=== PATIENT | female | born 1940 | race Caucasian/White ===

== ENCOUNTER 2020-07-16 12:27 | Inpatient (IN) | payer MEDICARE, SELFPAY ==
[2020-07-16] VITALS (36 sets, daily range): BP systolic 93–131; BP diastolic 22–80; PULSE 57–95; RESP 15–28; TEMP 36.3–36.7; O2SAT 90–99; BMI 39.9
--- NOTE | ~2020-07-16 | XR_ITS ---
XR chest 1V portable 07/16/2020 13:35 Indication: Epistaxis Procedure: AP portable chest Comparison: Comparison to multiple prior studies sequentially, with oldest reviewed study dated 05/22. Findings: Cardiomegaly. Diffuse bilateral airspace disease. Moderate right pleural effusion. No pneum othorax. No acute osseous abnormality. Impression: 1: Diffuse bilateral airspace disease may represent edema or pneumonia. 2: Moderate right pleural effusion. Reviewed, dictated and finalized at location A. NCE ACCOUNTING INTERNSHIP Impression: 1: Diffuse bilateral airspace disease may represent edema or pneumonia. 2: Moderate right pleural effusion.
--- NOTE | ~2020-07-16 | US_ITS ---
EXAMINATION: US renal BI DATE: 07/30/2020 09:31 INDICATION: Persistent hypokalemia TECHNIQUE: Multiple ultrasound grayscale images of the kidneys were obtained. COMPARISON: None. FINDINGS: The right kidney measures 10.2 x 4.8 x 4.5 cm. The left kidney measures 10.1 x 5.7 x 3.2 cm. The kidn eys demonstrate normal echogenicity. 5 mm shadowing stone at the lower pole of the left kidney. There is no hydronephrosis in either kidney. No stones identified. The bladder is decompressed which limi ts evaluation but appears unremarkable. IMPRESSION: 1. 5 mm left renal stone. Otherwise normal kidneys with no hydronephrosis. Reviewed, dictated and finalized at location A. ATTENDANT
--- NOTE | ~2020-07-16 | XR_ITS ---
EXAMINATION: [id number] DATE: 07/25/2020 15:38 INDICATION: Right pleural effusion status post thoracentesis. TECHNIQUE: Frontal and lateral views of the chest were obtained. COMPARISON: Chest CT 07/25/20 FINDINGS: There is a small right pleural effusion. There are airspace and interstitial opacities in a ll lung zones bilaterally with relative sparing of the upper lung zones. No pneumothorax. Cardiomegal y is noted. IMPRESSION: 1. Diffuse lung disease, consistent with pulmonary edema versus pneumonia superimposed on chronic int erstitial lung disease. 2. Small right pleural effusion with interval improvement. 3. Cardiomegaly. Reviewed, dictated and finalized at location A. IOLOGY PHYSICIAN ASSISTANT IMPRESSION: 1. Diffuse lung disease, consistent with pulmonary edema versus pneumonia super imposed on chronic interstitial lung disease. 2. Small right pleural effusion with interval improvement. 3. Cardiomegaly.
--- NOTE | ~2020-07-16 | XR_ITS ---
XR chest 1V portable 07/27/2020 06:12 Indication: CHF. Shortness of breath. Procedure: AP portable chest Comparison: 07/23/2020 Findings: . Diffuse bilateral airspace disease without significant change. Stable right pleural effus ion. Atherosclerosis. No acute osseous abnormality. Impression: 1: Stable diffuse bilateral airspace disease which may represent edema and/or pneumonia. 2: Stable small right pleural effusion. Reviewed, dictated and finalized at location A. K SAW OPERATOR Impression: 1: Stable diffuse bilateral airspace disease which may represent edema and/or p neumonia. 2: Stable small right pleural effusion.
--- NOTE | ~2020-07-16 | CT_ITS ---
EXAMINATION:CT chest high resolution wo co DATE: 07/25/2020 08:42 INDICATION: Hypoxia. Atypical bilateral infiltrates. TECHNIQUE: Computed tomography (CT) of the chest was performed without intravenous contrast. Automate d exposure control and iterative reconstruction technique were employed. The dose-length product (DLP ) was 460.91 mGy-cm. COMPARISON: Chest CT 05/09/2019, chest 2 views 07/23/2020 FINDINGS: There is a moderate-sized right pleural effusion. There are heterogeneous reticular opaciti es and airspace and groundglass opacities involving all lobes. A calcified left lung nodule and calci fied left hilar lymph nodes are consistent with old granulomatous disease. Cardiomegaly is noted. The re are coronary artery calcifications. No pericardial effusion. The central pulmonary arteries are en larged, consistent with pulmonary arterial hypertension. There is a 1.7 cm cyst in the liver. There i s thoracic dextroscoliosis and mild spondylosis. IMPRESSION: 1. Diffuse lung disease, worsened from 05/09/19, consistent with pneumonia versus pulmonary edema supe rimposed on chronic lung disease. 2. Moderate-sized right pleural effusion, stable from 05/09/19. 3. Cardiomegaly. Reviewed, dictated and finalized at location A. RVISOR POLISHING IMPRESSION: 1. Diffuse lung disease, worsened from 05/09/19, consistent with pneumonia versu s pulmonary edema superimposed on chronic lung disease. 2. Moderate-sized right pleural effusion, stable from 05/09/19. 3. Cardiomegaly.
--- NOTE | ~2020-07-16 | XR_ITS ---
XR chest 1V portable DATE: 07/18/2020 05:47 INDICATION: Dyspnea TECHNIQUE: Portable AP chest on 07/18/2020 at 0534 hours COMPARISON: 07/16/2020 portable AP chest at 1322 hours FINDINGS: There is interval mild improvement of patchy bilateral pulmonary infiltrates since 07/16/20 28. There is persistent mild elevation of the right leaf of the diaphragm and suggestion of minimal b ilateral pleural effusions. Cardiomegaly and aortic calcification. No pneumothorax. Diffuse osteopenia. Scoliosis and degenerative change of the thoracic spine. IMPRESSION: Patchy bilateral pulmonary infiltrates, mildly improved since 07/16/2020 Reviewed, dictated and finalized at location A. CHING MACHINE OPERATOR
--- NOTE | ~2020-07-16 | XR_ITS ---
XR chest 2V 07/23/2020 08:51 Indication: Dyspnea Procedure: AP and lateral views of the chest Comparison: Comparison to multiple prior studies sequentially, with oldest reviewed study dated 09/07. Findings: Cardiomegaly. Diffuse bilateral airspace disease unchanged. Small right pleural effusion. N o pneumothorax. No acute osseous abnormality. Impression: 1: Cardiomegaly with diffuse bilateral airspace disease which prior absent edema or pneumonia. 2: Small right pleural effusion. Reviewed, dictated and finalized at location B. US AIDE Impression: 1: Cardiomegaly with diffuse bilateral airspace disease which prior absent shandra a or pneumonia. 2: Small right pleural effusion.
--- NOTE | ~2020-07-16 | US_ITS ---
EXAMINATION: US thoracentesis DATE: 07/25/2020 15:41 INDICATION: pleural effusion TECHNIQUE: The procedure and its risks, benefits, and alternatives were discussed with the patient. P otential risks discussed included bleeding, infection, and pneumothorax. The patient understood the r isks and agreed to proceed. The skin was prepped and draped in sterile fashion. 1% lidocaine was used for local anesthesia. Under ultrasound guidance, a 5 Fr catheter with trochar was advanced into the right pleural effusion. Fluid was aspirated. The catheter was removed, and a dressing was applied. Th ere were no immediate complications. FINDINGS: Ultrasound images demonstrate a right pleural effusion and the catheter within the fluid. IMPRESSION: 1. Successful ultrasound-guided thoracentesis yielding 950 mL of red fluid. Reviewed, dictated and finalized at location A. RVISOR POULTRY HATCHERY
--- NOTE | 2020-07-16 12:42 | ED.EPISTAXIS ---
HPI - Epistaxis General Chief complaint: Epistaxis Stated complaint: nose bleed Time Seen by Provider: 07/16/20 12:42 Source: patient, family and EMS Mode of arrival: EMS Limitations: no limitations History of Present Illness HPI Narrative: Patient is a 79 yo female with a history of COPD, a fib on Eliquis, who presents for evaluation of epistaxis. Pt with intermittent epistaxis due to consistently needing 4L oxygen, and had a nose bleed today that she could not get to stop at home. Pt transmitted to our facility on a NRB by EMS because they removed her nasal cannula oxygen. Pt reporting weakness and shortness of breath worse from baseline. Nose bleeding has stopped. Pt states she was bleeding mostly from left nostril, but did have blood from both. She has been compliant with her medications. Denies chest pain. No lightheadedness or dizziness. Pt states she feels more weak than normal. Denies focal weakness or numbness. Denies fever or cough. Related Data Home Medications Medication Instructions Recorded Confirmed ipratropium 0.5 mg-albuterol 3 mg 3 ml INHALATION QID PRN 08/16/19 09/04/19 (2.5 mg base)/3 mL nebulization soln Eliquis 5 mg PO BID 09/04/19 09/04/19 omeprazole 20 mg PO DAILY 09/04/19 09/04/19 polyethylene glycol 3350 17 g PO DAILY 09/04/19 09/04/19 vitamin D3-folic acid 1 tablet PO DAILY 09/04/19 09/04/19 zoledronic acid 5 mg/100 mL in 5 mg IVPB ONCE 10/10/19 mannitol 5 %-water intravenous piggybck Allergies Allergy/AdvReac Type Severity Reaction Status Date / Time erythromycin base Allergy Severe Wheezing Verified 07/16/20 12:44 Penicillins Allergy Intermediate Ulcers Verified 07/16/20 12:44 tetanus toxoid, adsorbed Allergy Mild LOCALIZED Verified 07/16/20 12:44 REACTION @ INJECTION SITE diphtheria, pertussis, AdvReac Unknown Unknown Verified 07/16/20 12:44 tetanus vacc NKFA Allergy Unknown Unknown Uncoded 07/16/20 12:44 metal AdvReac Unknown rash Uncoded 07/16/20 12:44 Review of Systems Review of Systems: Narrative: CONSTITUTIONAL: Denies fever EYES: Denies visual changes ENT: Reports rhinorrhea, congestion, epistaxis CARDIOVASCULAR: Denies chest pain RESPIRATORY: Denies cough, reports dyspnea GASTROINTESTINAL: Denies abdominal pain, nausea, vomiting MUSCULOSKELETAL: Denies back pain NEUROLOGIC: Denies headache, numbness,reports feeling weak PMFSH Past Medical History Medical History (Updated 07/16/20 @ 15:43 by Kylee Kimble MD) Adjustment disorder with anxious mood Age-related osteoporosis without current pathological fracture Anemia Atrial fibrillation (~03/2019) Breast cancer Cataracts, bilateral Chronic congestive heart failure with left ventricular diastolic dysfunction Congestive heart failure, unspecified CPAP (continuous positive airway pressure) dependence Diverticulitis Endometriosis Essential (primary) hypertension Fracture of left femur following insertion of orthopedic implant Gastro-esophageal reflux disease with esophagitis Kidney stone Mitral valve prolapse Mixed hyperlipidemia Nonrheumatic mitral (valve) insufficiency Obstructive sleep apnea (adult) (pediatric) Osteoporosis Pulmonary hypertension Respiratory failure Sleep apnea Supraventricular tachycardia Unspecified diastolic (congestive) heart failure UTI (urinary tract infection) Surgical History Surgical History History of lumpectomy of left breast Family History Family History Mother Hypertension Diabetes mellitus Family history of osteoporosis Acute myocardial infarction Sibling Family history of malignant neoplasm of esophagus Colon polyp Father Family history of glaucoma Hypertension Family history of rheumatoid arthritis Other Family history of cardiovascular disease Family history of heart disease in male family member before age 55 Family history of
[2020-07-16] MEDS: OXYMETAZOLINE HCL 0.05% NAS 15 ML BTL (*BKC) 1 SPRAY NASAL (13:04)
[2020-07-16 13:30] LABS: Basophils Percent Auto 0.3 % (0.2-1.2); Eosinophils Absolute Auto 0.2 K/mm3 (0-0.3); Eosinophils Percent Auto 2.7 % (0-4.4); Hematocrit 46.5 % (37.0-47.0); Hemoglobin 15.1 g/dL (12.0-15.0); Immature Granulocyte Absolute 0.02 K/mm3 (0.00-0.031); Immature Granulocyte Percent A 0.3 % (0-0.5); Lymphocytes Absolute Auto 0.62 K/mm3 (0.9-3.2); Lymphocytes Percent Auto 8.2 % (18.3-44.2); Mean Corpuscular HGB Conc 32.5 g/dl (32-36); Mean Corpuscular Volume 89.4 fl (80-100); Mean Platelet Volume 10.4 fl (7.4-10.4); Monocytes Absolute Auto 0.8 K/mm3 (0.1-0.6); Monocytes Percent Auto 10.9 % (2.6-8.5); Neutrophils Absolute Auto 5.9 K/mm3 (1.3-6.7); Neutrophils Percent Auto 77.6 % (45.5-73.1); Platelet Count Result 214 k/mm3 (150-375); Red Cell Distribution Width 15.1 % (11.5-14.5); White Blood Count 7.5 K/mm3 (4.5-10.0)
[2020-07-16 13:39] LABS: INR 1.7; Prothrombin Time 20.2 Seconds (11.1-14.7)
[2020-07-16 13:40] LABS: Partial Thromboplastin Time 35.9 SECONDS (22.3-36.8)
[2020-07-16 13:44] LABS: Anion Gap 9.99999 mmol/L (8-16); Blood Urea Nitrogen 51 mg/dL (7-17); Calcium 9.7 mg/dL (8.4-10.2); Carbon Dioxide > 40 mmol/L (22-30); Chloride 84 mmol/L (98-107); Estimated CRCL calculation 36 ml/min; Estimated Glomerular Filt Rate 43; Glucose 147 mg/dL (65-105); Potassium 2.9 mmol/L (3.4-5.0); Sodium 134 mmol/L (137-145)
[2020-07-16] MEDS: POTASSIUM CHLORIDE 20 MEQ PACKET (FOR LIQUID) 40 MEQ PO (14:07)
[2020-07-16] MEDS: SODIUM CHLORIDE 0.9% IV 500 ML 999 ML IV CONT (14:07)
[2020-07-16 14:40] LABS: Alveolar/Arterial O2 Gradient 87.7 mmHg; Base Excess ABG 10.5 mEq/l (+/-2.0); Carboxyhemoglobin 0.8 % THb (0-2.0); Fractional Inspired Oxygen 34 %; HCO3 ABG 39.5 mEq/l (22.0-26.0); Methemoglobin ABG 0.4 %THb (0-1.5); Oxygen Content ABG 18.8 %vol (16.0-22.0); Oxygen Saturation ABG 92.1 % (95.0-100.0); PCO2 ABG 73.7 mmHg (35.0-45.0); PO2 ABG 68.9 mmHg (80.0-100.0); PO2 FiO2 Ratio Arterial Blood 2.03 %; Reduced Hemoglobin 7.8 %THb (0-5.0); Total Hemoglobin 14.7 g/dL (12.0-18.0); pH ABG 7.347 (7.350-7.450)
[2020-07-16 14:41] LABS: Device NASAL CANNULA; Liters per Minute 3.5 LPM; Modified Allen's Test Pass; Site Drawn RIGHT RADIAL
[2020-07-16 15:04] LABS: NT Pro B Type Natriuretic Pept 2900 PG/ML (5-100); Troponin I 0.023 ng/mL (0.000-0.034)
--- NOTE | 2020-07-16 15:29 | ECG_ITS ---
Measurements Intervals Sebastian Rate: 111 P: LA: 0 QRS: 126 QRSD: 70 T: 1 QT: 341 QTc: 464 Interpretive Statements ATRIAL FIBRILLATION WITH RAPID VENTRICULAR RESPONSE RIGHT AXIS DEVIATION CANNOT RULE OUT SEPTAL INFARCT, AGE INDETERMINATE BORDERLINE ST-T WAVE ABNORMALITY- INFERIOR LEADS BASELINE WANDER- V3-V6 ABNORMAL ECG Electronically Signed On 07-17-2020 8:42:25 [employer]UCK [employer] by Oscar Pulido D.O.
[2020-07-16] MEDS: FUROSEMIDE INJ 40 MG/4 ML VIAL 20 MG IV PUSH (15:38)
[2020-07-16 16:47] LABS: Alveolar/Arterial O2 Gradient 97.7 mmHg; Base Excess ABG 12.9 mEq/l (+/-2.0); Carboxyhemoglobin 1.1 % THb (0-2.0); Fractional Inspired Oxygen 35 %; HCO3 ABG 41.5 mEq/l (22.0-26.0); Methemoglobin ABG 0.3 %THb (0-1.5); Oxygen Content ABG 19.4 %vol (16.0-22.0); Oxygen Saturation ABG 93.2 % (95.0-100.0); PO2 ABG 69.9 mmHg (80.0-100.0); Reduced Hemoglobin 6.6 %THb (0-5.0); pH ABG 7.388 (7.350-7.450)
[2020-07-16 16:48] LABS: Device NON-INVASIVE VENT; Modified Allen's Test Pass; PCO2 ABG 70.5 mmHg (35.0-45.0); Site Drawn LEFT RADIAL
[2020-07-16 16:49] LABS: Non-Invasive Expiratory Pressure 5 CMH2O; Non-Invasive Inspiratory Pressure 15 CMH2O; Non-Invasive Vent Rate 16 /MIN
--- NOTE | 2020-07-16 17:06 | PC.NURSE ---
Blood cultures were drawn from 2 different sites by this RN.
--- NOTE | 2020-07-16 19:57 | PM.IMHP ---
H&P: HPI History of Present Illness Date/Time: 07/16/20 19:57 Chief complaint: Acute hypercapnic/respiratory failure/acute CHF ex Narrative: Elizabeth Montana is a 79 year old female who has a history of atrial fibrillation on Eliquis. The patient has pulmonary hypertension and is on oxygen at 3 and half to 4 L. the patient is tested for covid 19 every week. She was tested earlier this week. According to the the daughter, the patient tested negative covid 19. The patient wears oxygen per nasal cannula in her nose became very dry today. She then developed a nosebleed that would not stop. EMS was activated because she was not able to keep her oxygen in place. She was placed on a non-rebreather. She was complaining of weakness and shortness of breath. She has bleeding from the left nostril mostly but is coming from both sides. She has been compliant with her medications and is pending. Although she is a DNR she agreed to the BiPAP. Arterial blood gases pH 7.347 with the CO2 73.7 PO2 was 68.9. Repeat ABG pH was normal at some 0.388 and her CO2 70.5. PO2 69.9. Patient's BiPAP settings are 15 or 5 with 35% laden in a rate of 16. 2.9 and was replaced. Creatinine 1.2. BNP 2900. May represent edema or pneumonia. Moderate right pleural effusion. The patient was given Afrin nasal spray due to the nasal bleeds. His she was given IV Lasix and started on Levaquin. Patient was admitted into observation date of service 07/16/2020. Review of Systems Review of Systems: All systems reviewed & are unremarkable except as noted in HPI and below Constitutional: Constitutional: Reports as per HPI and Reports no additional constitutional complaints Eyes: Eyes: Reports as per HPI and Reports no additional eye complaints ENT: Reports system reviewed and no additional complaints, except as documented and Reports Normal hearing present Cardiovascular: Cardiovascular: Reports no additional cardiovascular complaints Respiratory: Respiratory: Reports no additional respiratory complaints and Reports no additional respiratory complaints Gastrointestinal: Gastrointestinal: Reports as per HPI and Reports no additional gastrointestinal complaints Musculoskeletal: Musculoskeletal: Reports no additional musculoskeletal complaints Integumentary/Breasts: Skin/Breast: Reports system reviewed and no additional complaints, except as docu and Reports as per HPI Neurologic: Reports system reviewed and no additional complaints, except as documented, Reports as per HPI and Reports Normal hearing present Psychiatric: Psychiatric: Reports no additional psychiatric complaints and Reports as per HPI Endocrine: Endocrine: Reports no additional endocrine complaints Hematologic/Lymphatic: Hematologic/Lymphatic: Reports no additional hematologic/lymphatic complaints Allergic/Immunologic: Allergic/Immunologic: Reports no additional allergic/immunologic complaints [facility] Past Medical History Medical History (Updated 07/16/20 @ 20:07 by Tamiko Fuller NP) Abnormal colonoscopy And control hemorrhoids diverticulosis Adjustment disorder with anxious mood Age-related osteoporosis without current pathological fracture Anemia Atrial fibrillation (~03/2019) Breast cancer Left lumpectomy with radiation therapy. Cataracts, bilateral Chronic congestive heart failure with left ventricular diastolic dysfunction Congestive heart failure, unspecified CPAP (continuous positive airway pressure) dependence Diverticulitis Endometriosis Essential (primary) hypertension Fracture of left femur following insertion of orthopedic implant Gastro-esophageal reflux disease with esophagitis History of breast cancer Kidney stone Mitral valve prolapse Mixed hyperlipidemia Nonrheumatic mitral (valve) insufficiency Obstructive sleep apnea (adult) (pediatric) Osteoporosis Pulmonary hypertension Respiratory failure Sleep apnea Supraventricular tachycardia Unspecified diastolic (congestive) hear
[2020-07-16 19:58] LABS: Alveolar/Arterial O2 Gradient 77.9 mmHg; Base Excess ABG 15.3 mEq/l (+/-2.0); Fractional Inspired Oxygen 35 %; HCO3 ABG 44.2 mEq/l (22.0-26.0); Oxygen Content ABG 19.1 %vol (16.0-22.0); Oxygen Saturation ABG 95.8 % (95.0-100.0); PO2 ABG 84.6 mmHg (80.0-100.0); PO2 FiO2 Ratio Arterial Blood 2.42 %; Total Hemoglobin 14.4 g/dL (12.0-18.0); pH ABG 7.389 (7.350-7.450)
[2020-07-16 20:00] LABS: Device BIPAP; Expiratory Pressure 5 cmH2O; Inspiratory Pressure 15 cmH2O; Modified Allen's Test Pass; PCO2 ABG 74.9 mmHg (35.0-45.0); Site Drawn RIGHT RADIAL
--- NOTE | 2020-07-16 20:23 | PC.NURSE ---
Called to give report. RN on IMU just received SBAR and will call back.
--- NOTE | 2020-07-16 21:22 | ADMGEN ---
This patient, Elizabeth Montana, was admitted to IMU Room [id number]. Patient/family oriented to hospital policies and general routines including ID bracelet, bed and alarms, visiting hours, pain management, procedures, bathroom and other care routines, personal items, smoking policy, room service/diet, and visiting hours. Information on how to activate the Rapid Response Team has been discussed. Patient/Family are encouraged to report perceived risks to care and to ask questions if they do not understand what they are told or what they should do.
[2020-07-17] VITALS (18 sets, daily range): BP systolic 98–132; BP diastolic 55–72; PULSE 77–111; RESP 17–30; TEMP 36.2–36.7; O2SAT 94–100
[2020-07-17] MEDS: carvediloL 25 MG TABLET PO ×3 (02:18→20:44)
[2020-07-17 05:20] LABS: Basophils Percent Auto 0.3 % (0.2-1.2); Eosinophils Absolute Auto 0.1 K/mm3 (0-0.3); Eosinophils Percent Auto 1.7 % (0-4.4); Hematocrit 43.1 % (37.0-47.0); Hemoglobin 13.9 g/dL (12.0-15.0); Immature Granulocyte Absolute 0.03 K/mm3 (0.00-0.031); Immature Granulocyte Percent A 0.4 % (0-0.5); Lymphocytes Absolute Auto 0.62 K/mm3 (0.9-3.2); Lymphocytes Percent Auto 8.2 % (18.3-44.2); Mean Corpuscular HGB Conc 32.3 g/dl (32-36); Mean Corpuscular Hemoglobin 28.9 pg (26-34); Mean Corpuscular Volume 89.6 fl (80-100); Mean Platelet Volume 9.8 fl (7.4-10.4); Monocytes Percent Auto 12.9 % (2.6-8.5); Neutrophils Absolute Auto 5.8 K/mm3 (1.3-6.7); Neutrophils Percent Auto 76.5 % (45.5-73.1); Platelet Count Result 191 k/mm3 (150-375); Red Blood Count 4.81 M/mm3 (4.2-5.4); Red Cell Distribution Width 15.2 % (11.5-14.5); White Blood Count 7.6 K/mm3 (4.5-10.0)
[2020-07-17 05:43] LABS: Alanine Aminotransferase 19 U/L (4-35); Albumin Level 3.4 g/dL (3.5-5.1); Alkaline Phosphatase 62 U/L (38-126); Anion Gap 11.99999 mmol/L (8-16); Aspartate Amino Transferase 28 U/L (14-36); Bilirubin,Total 1.2 mg/dL (0.2-1.3); Blood Urea Nitrogen 42 mg/dL (7-17); Calcium 9.3 mg/dL (8.4-10.2); Carbon Dioxide > 40 mmol/L (22-30); Chloride 86 mmol/L (98-107); Estimated CRCL calculation 39 ml/min; Estimated Glomerular Filt Rate 48; Glucose 95 mg/dL (65-105); Magnesium 1.9 mg/dL (1.6-2.3); Potassium 2.6 mmol/L (3.4-5.0); Sodium 138 mmol/L (137-145)
[2020-07-17] MEDS: FUROSEMIDE INJ 40 MG/4 ML VIAL IV PUSH (08:30)
[2020-07-17] MEDS: ATORVASTATIN 40 MG TABLET PO (08:30)
[2020-07-17] MEDS: FAMOTIDINE 20 MG TABLET 40 MG PO (08:30)
[2020-07-17] MEDS: POTASSIUM CHLORIDE 10 MEQ TABLET.ER 20 MEQ PO (08:30)
[2020-07-17] MEDS: FOLIC ACID 1 MG TABLET PO (08:30)
[2020-07-17] MEDS: CHOLECALCIFEROL 1,000 UNITS TABLET 5000 UNITS PO (08:31)
[2020-07-17] MEDS: TOLNAFTATE 1% POWDER 45 GM BTL 1 APPLIC TOPICAL ×2 (08:31→20:45)
[2020-07-17] MEDS: APIXABAN 5 MG TABLET PO ×2 (08:31→16:44)
[2020-07-17] MEDS: polyethylene glycoL 3350 17 GM POWD.PACK PO (08:31)
[2020-07-17] MEDS: PANTOPRAZOLE SOD SESQUIHYDRATE 20 MG TAB PO (08:31)
--- NOTE | 2020-07-17 13:21 | PM.CNCAR ---
Assessment and Plan Additional Plan this is an 79-year-old lady with chronic atrial fibrillation who does have diastolic noncompliance and a couple of previous admissions here with diastolic heart failure. She comes into the hospital last evening not really complaining of dyspnea from what I can tell but complaining of epistaxis. That has been brought under control. Because of hypoxemia pulmonary congestion she was admitted to the hospital and is being empirically diuresed with IV furosemide. According to the staff she has been incontinent but is having a good diuresis. In this setting COVID-19 is certainly in the differential diagnosis and she has been appropriately tested for that last evening those results should be back shortly. At this point I would recommend continuing IV furosemide and I will follow her with you tomorrow to examine a follow-up chest x-ray and assess her clinical status. Hopefully she remains negative for COVID 19 Wolf Goldberg MD [facility] History of Present Illness History of Present Illness Consult date/time: 07/17/20 13:21 Reason For Visit: Acute hypercapnic/respiratory failure/acute CHF ex Narrative: This is an 79-year-old woman I am asked to see this afternoon at the request of the hospitalist as she was admitted to the hospital last evening from the emergency room. I am seeing her because of congestive heart failure. The patient actually came to the emergency room from her Skilled care facility because of epistaxis. apparently she had a nosebleed this was unable to get stopped. In the emergency room they gave her some Afrin nasal spray and were able to stop the nose bleeding. Apparently was noted that she was hypoxemic and was placed on a non-rebreather oxygen mask in admitted to the hospital she normally has nasal cannula oxygen according to what I am reading in the chart. She does not say she was complaining of any worsening shortness of breath orthopnea or PND. She does have some lower extremity edema which she has chronically she is not sure that it is any worse than it no recently has been. The chest x-ray demonstrates significant bilateral pulmonary infiltrates. She has a history of chronic atrial fibrillation as well as diastolic left ventricular dysfunction and has been in the hospital couple of times with diastolic heart failure. She follows with Dr. hernandez of our practice. She is chronically anticoagulated with apixaban. I came in the room to see her she is resting comfortably on a BiPAP device in says she otherwise feels quite well at this time. She is being tested for COVID-19 that is being run and is pending at the time of this dictation. Review of Systems Constitutional: Constitutional: Reports no additional constitutional complaints Eyes: Eyes: Reports no additional eye complaints ENT: Reports epistaxis Cardiovascular: Cardiovascular: Reports as per HPI Respiratory: Respiratory: Reports no additional respiratory complaints Gastrointestinal: Gastrointestinal: Reports no additional gastrointestinal complaints Musculoskeletal: Musculoskeletal: Reports no additional musculoskeletal complaints Integumentary/Breasts: Skin/Breast: Reports system reviewed and no additional complaints, except as docu Neurologic: Reports system reviewed and no additional complaints, except as documented Endocrine: Endocrine: Reports no additional endocrine complaints Hematologic/Lymphatic: Hematologic/Lymphatic: Reports no additional hematologic/lymphatic complaints Allergic/Immunologic: Allergic/Immunologic: Reports no additional allergic/immunologic complaints [facility] Past Medical History Medical History (Updated 07/16/20 @ 20:07 by Tamiko Fuller NP) Abnormal colonoscopy And control hemorrhoids diverticulosis Adjustment disorder with anxious mood Age-related osteoporosis without current pathological fracture Anemia Atrial fibrillation (~03/2019) Breast cancer Left lumpectomy with radiation
--- NOTE | 2020-07-17 17:17 | PM.IMPN ---
Progress Note: A&P Assessment and Plan (1) Suspected COVID-19 virus infection: Code(s): Z20.828 - Contact with and (suspected) exposure to other viral communicable diseases Status: Acute Assessment and Plan: -gets weekly COVID-19 test which have been negative -COVID-19 test from our facility is pending -continue isolation precautions for now (2) Atypical pneumonia: Code(s): J18.9 - Pneumonia, unspecified organism Status: Acute Assessment and Plan: -Stopping antibiotics, no sign of pneumonia with patient having no sputum production, no fevers/chills, no leukocytosis (3) Acute and chronic respiratory failure: Qualifiers: Respiratory failure complication: hypoxia and hypercapnia Qualified Code(s): J96.21 - Acute and chronic respiratory failure with hypoxia; J96.22 - Acute and chronic respiratory failure with hypercapnia Code(s): J96.20 - Acute and chronic respiratory failure, unspecified whether with hypoxia or hypercapnia Status: Acute Assessment and Plan: Patient is chronically on oxygen at 3 to 3-1/2 to 4 L. the patient is a DNR but was agreeable to the BiPAP machine. Patient's respiratory failure secondary to diastolic heart failure from previous visits, checking echocardiogram with no recent echocardiogram last 6 months. Patient denies any COPD history. as patient is hypercarbic will continue BiPAP and recheck ABG in the afternoon. (4) Epistaxis: Code(s): R04.0 - Epistaxis Status: Acute Assessment and Plan: Stopped (5) Atrial fibrillation: Onset Date: ~03/2019 Qualifiers: Atrial fibrillation type: permanent Qualified Code(s): I48.21 - Permanent atrial fibrillation Code(s): I48.91 - Unspecified atrial fibrillation Status: Acute Assessment and Plan: -Eliquis for her anticoagulation -Coreg 25 mg b.i.d. for rate control (6) Acute exacerbation of congestive heart failure: Qualifiers: Heart failure type: unspecified Qualified Code(s): I50.9 - Heart failure, unspecified Code(s): I50.9 - Heart failure, unspecified Status: Chronic Assessment and Plan: Continue with IV Lasix for diuresis with metolazone. Patient has had multiple readmissions for the same issue over the past couple years. Repeating echocardiogram with acute exacerbation. (7) Mixed hyperlipidemia: Code(s): E78.2 - Mixed hyperlipidemia Status: Chronic Assessment and Plan: Continue statin (8) Essential (primary) hypertension: Code(s): I10 - Essential (primary) hypertension Status: Chronic Assessment and Plan: Stable (9) Hypokalemia: Code(s): E87.6 - Hypokalemia Status: Acute Assessment and Plan: Secondary to diuresis, repeating with p.o. and IV Additional Plan # chronic conditions -constipation: Continue MiraLax -GERD: Continue PPI and Pepcid Diet: Cardiac Code status: DNR/DNI Disposition: IMU pending clinical course, continue diuresis IV Subjective Date/time seen: 07/17/20 17:18 Patient examined. She is tolerating the BiPAP very well, no new complaints. Patient's hypercarbic however pH is normal so this may be more chronic, will repeat ABG. Patient is chronically on 4 L oxygen home therapy. Patient significantly hypokalemic, replacing p.o. and IV, secondary to diuresis. Patient denies fever, chills, nausea, vomiting, diarrhea, sputum production. Review of Systems Review of Systems: All systems reviewed & are unremarkable except as noted in HPI and below Exam Narrative: Exam Narrative: - GENERAL: Pleasant woman in no acute distress on BiPAP - EYES: EOMI. Anicteric. - HENT: Moist mucous membranes. Dry blood in nares. - LUNGS: Diminished sounds throughout, on BiPAP - CARDIOVASCULAR: Regular rate and rhythm. No murmur. No JVD. - ABDOMEN: Soft, non-tender and non-distended. - EXTREMITIES: 2+ pitting edema. Peripheral pulses 2+.
[2020-07-17 17:44] LABS: Alveolar/Arterial O2 Gradient 132.1 mmHg; Base Excess ABG 16.9 mEq/l (+/-2.0); Fractional Inspired Oxygen 35 %; HCO3 ABG 43.4 mEq/l (22.0-26.0); Modified Allen's Test Pass; Oxygen Saturation ABG 87.4 % (95.0-100.0); Oxyhemoglobin 87.4 % THb (90.0-100.0); PCO2 ABG 57.9 mmHg (35.0-45.0); PO2 ABG 50.1 mmHg (80.0-100.0); PO2 FiO2 Ratio Arterial Blood 1.43 %; Site Drawn RIGHT RADIAL; Total Hemoglobin 14.7 g/dL (12.0-18.0); pH ABG 7.493 (7.350-7.450)
[2020-07-17 17:45] LABS: Device NON-INVASIVE VENT; Non-Invasive Expiratory Pressure 7 CMH2O; Non-Invasive Inspiratory Pressure 18 CMH2O; Non-Invasive Vent Rate 16 /MIN
[2020-07-17 18:37] LABS: Potassium 3.4 mmol/L (3.4-5.0)
[2020-07-18] VITALS (14 sets, daily range): BP systolic 99–129; BP diastolic 57–87; PULSE 81–127; RESP 20–31; TEMP 36.1–36.4; O2SAT 90–98
--- NOTE | 2020-07-18 | ECHO_ITS ---
Patient Info Name: Elizabeth Montana Age: 79 years : 1940 Gender: Female Ht: 62 in Wt: 215 lbs BSA: 2.12 m2 HR: 98 bpm BP: 99 / 57 mmHg Heart Rhythm: Atrial Fibrillation Technical Quality: Fair Exam Date: 07/18/2020 3:56 PM Exam Location: [facility] Pulmonary Exam Room: 213 Patient Status: Inpatient Admit Date: 07/16/2020 Staff Ordering Physician: Shen Chan DO Burr Bench Hand: Meenu Duran RDCS Attending Provider: Mati Jaimes MD Referring Physician: Dustin FORDE; Exam Type: CA echo doppler color flow Study Info Indications - afib chf htn sob Complete two-dimensional, color flow and Doppler transthoracic echocardiogram is performed. Summary 1. Complete two-dimensional, color flow and Doppler transthoracic echocardiogram is performed. 2. Normal left ventricular size and thickness with good contractility of all segments and no focal wall motion abnormalities. Ejection fraction by visual estimate is 65-70%. Diastolic dysfunction is indeterminate. 3. There is flattening of the interventricular septum during systole and diastole consistent with pressure volume overload. 4. Right ventricular chamber dimension is moderately enlarged, with moderate hypokinesis. 5. Left atrial chamber dimension is mildly enlarged. 6. Right atrial chamber dimension is severely enlarged. 7. There is mild aortic valve calcification without stenosis. 8. There is mild mitral valve regurgitation. 9. There is severe tricuspid valve regurgitation. 10. Severe pulmonary hypertension, estimated pulmonary arterial systolic pressure is 90 mmHg. 11. There is mild pulmonic regurgitation. 12. Probable ascites. 13. Atrial fibrillation. Left Ventricle Left ventricular chamber dimension is normal. Left ventricular systolic function is normal, estimated at 65-70%. There is no increased left ventricular wall thickness. Left ventricular septal wall motion is normal. The left ventricular diastolic function is indeterminate. Normal left ventricular size and thickness with good contractility of all segments and no focal wall motion abnormalities. Ejection fraction by visual estimate is 65-70%. Diastolic dysfunction is indeterminate. Right Ventricle Right ventricular chamber dimension is moderately enlarged, with moderate hypokinesis. Right ventricular systolic function is reduced. Left Atria Left atrial chamber dimension is mildly enlarged. Right Atria Right atrial chamber dimension is severely enlarged. Aortic Valve The aortic valve is trileaflet. There is no aortic valve sclerosis. There is no aortic valve stenosis. There is no aortic valve regurgitation. There is mild aortic valve calcification without stenosis. Pulmonic Valve The pulmonic valve is normal. There is no pulmonic valve stenosis. There is mild pulmonic regurgitation. Mitral Valve The mitral valve has thickened leaflets and calcified annulus. There is no mitral valve stenosis. There is mild mitral valve regurgitation. Tricuspid Valve The tricuspid valve leaflets are normal. There is no significant tricuspid valve stenosis. There is severe tricuspid valve regurgitation. Severe pulmonary hypertension, estimated pulmonary arterial systolic pressure is 90 mmHg. Pericardium/Pleural The pericardium appears normal. There is no pericardial effusion. Inferior Vena Cava Dilated inferior vena cava with <50% collapse upon inspiration consistent with Empty right atrial pressure, 10
[2020-07-18 06:14] LABS: Anion Gap 14.99999 mmol/L (8-16); Blood Urea Nitrogen 32 mg/dL (7-17); Calcium 9.7 mg/dL (8.4-10.2); Carbon Dioxide > 40 mmol/L (22-30); Chloride 83 mmol/L (98-107); Estimated CRCL calculation 39 ml/min; Estimated Glomerular Filt Rate 48; Glucose 102 mg/dL (65-105); Magnesium 1.8 mg/dL (1.6-2.3); Potassium 3.2 mmol/L (3.4-5.0); Sodium 138 mmol/L (137-145)
--- NOTE | 2020-07-18 10:18 | PM.IMPN ---
Progress Note: A&P Assessment and Plan (1) Suspected COVID-19 virus infection: Code(s): Z20.828 - Contact with and (suspected) exposure to other viral communicable diseases Status: Acute Assessment and Plan: -gets weekly COVID-19 test which have been negative -COVID-19 test from our facility is pending -continue isolation precautions for now (2) Atypical pneumonia: Code(s): J18.9 - Pneumonia, unspecified organism Status: Acute Assessment and Plan: -Stopping antibiotics, no sign of pneumonia with patient having no sputum production, no fevers/chills, no leukocytosis (3) Acute and chronic respiratory failure: Qualifiers: Respiratory failure complication: hypoxia and hypercapnia Qualified Code(s): J96.21 - Acute and chronic respiratory failure with hypoxia; J96.22 - Acute and chronic respiratory failure with hypercapnia Code(s): J96.20 - Acute and chronic respiratory failure, unspecified whether with hypoxia or hypercapnia Status: Acute Assessment and Plan: Patient is chronically on oxygen at 3 to 4 L HOT. the patient is a DNR but was agreeable to the BiPAP machine. Patient's respiratory failure secondary to diastolic heart failure from previous visits. After continuous BiPAP patient became alkalotic, likely her CO2 being in the 50s is away from her baseline. Echocardiogram complete, pending read. Patient denies any COPD history. (4) Epistaxis: Code(s): R04.0 - Epistaxis Status: Acute Assessment and Plan: Stopped (5) Atrial fibrillation: Onset Date: ~03/2019 Qualifiers: Atrial fibrillation type: permanent Qualified Code(s): I48.21 - Permanent atrial fibrillation Code(s): I48.91 - Unspecified atrial fibrillation Status: Acute Assessment and Plan: -Eliquis for her anticoagulation -Coreg 25 mg b.i.d. for rate control (6) Acute exacerbation of congestive heart failure: Qualifiers: Heart failure type: unspecified Qualified Code(s): I50.9 - Heart failure, unspecified Code(s): I50.9 - Heart failure, unspecified Status: Chronic Assessment and Plan: Continue with IV Lasix for diuresis with metolazone. Patient has had multiple readmissions for the same issue over the past couple years. Repeating echocardiogram with acute exacerbation. (7) Mixed hyperlipidemia: Code(s): E78.2 - Mixed hyperlipidemia Status: Chronic Assessment and Plan: Continue statin (8) Essential (primary) hypertension: Code(s): I10 - Essential (primary) hypertension Status: Chronic Assessment and Plan: Stable (9) Hypokalemia: Code(s): E87.6 - Hypokalemia Status: Acute Assessment and Plan: Secondary to diuresis, repeating with p.o. and IV Additional Plan # chronic conditions -constipation: Continue MiraLax -GERD: Continue home PPI and Pepcid Diet: Cardiac DVT prophylaxis: On Eliquis Code status: DNR/DNI Disposition: IMU pending clinical course, continue diuresis IV Subjective Date/time seen: 07/18/20 10:18 Patient examined. Patient weaned off the BiPAP back to her chronic 3-4 L of oxygen. She feels better. Will have physical therapy evaluate patient for disposition, she lives in assisting living facility and may need rehab. Echocardiogram today, I did not see an echo within this year. COVID-19 still pending. Will continue diuresis for now. Patient denies fever, chills, nausea, vomiting, diarrhea, chest pain. She feels better overall. Review of Systems Review of Systems: All systems reviewed & are unremarkable except as noted in HPI and below Exam Narrative: Exam Narrative: - GENERAL: Pleasant woman in no acute distress on 4 L oxygen - EYES: EOMI. Anicteric. - HENT: Moist mucous membranes. - LUNGS: Diminished lung sounds, crackles - CARDIOVASCULAR: Irregularly irregular. No JVD. - ABDOMEN: Soft, non-tender and non-diste
--- NOTE | 2020-07-18 10:37 | PM.PNCARD ---
Progress Note: A&P Additional Plan Elderly lady with chronic atrial fibrillation and diastolic dysfunction. She presents to the hospital primarily with epistaxis which has been resolved. She is short of breath with modest activity and conversation. She does however have chronic dyspnea and is on 3-4 L of nasal cannula oxygen at baseline. An echocardiogram has been ordered by the primary service and has to be done today. Her chest x-ray on admission did look more congested than her baseline as well. I would continue intravenous furosemide at this time and will review her echocardiogram later today Wolf Goldberg MD [facility] Subjective Date/time seen: Date of service: 07/18/20 10:37 Interval history: Follow-up visit in this 79-year-old lady with chronic diastolic heart failure. She came to the hospital primarily because of epistaxis which has been resolved. Patient today states she continues to have shortness of breath and does have conversational dyspnea when I am seeing her. According to the hospitalist this seems to be her baseline. As I am not her chronic outpatient physician I do not have any personal knowledge of what her baseline looks like. It is of some concern that with conversation though she is still short of breath. COVID results are still pending. Exam Const: General: comfortable Other: Elderly lady at bedrest eating her breakfast. She is wearing nasal cannula oxygen and is short of breath with conversation. HENMT: Mouth: Yes moist mucous membranes Eyes: Sclera: sclerae normal Pupils: Equal, round and reactive pupils present Neck: Neck: supple and no JVD Resp: Other: Breath sounds are diminished throughout scant crackles noted at the bases Cardio: Rhythm: abnormal rhythm irregularly irregular GI: GI Palp: Yes Soft to palpation Auscultation: normal bowel sounds Neuro: Cognition (Neuro): normal cognition Objective Data Vital Signs Vital Signs: Vital Signs - 24 hr 07/17/20 12:00 07/17/20 14:00 07/17/20 14:47 Temperature 36.4 C L Pulse Rate 93 87 97 Respiratory Rate 22 H 17 Blood Pressure 111/66 Pulse Oximetry 96 100 07/17/20 16:00 07/17/20 18:00 07/17/20 19:30 Temperature Pulse Rate 100 87 87 Respiratory Rate 30 H 19 Blood Pressure 132/72 Pulse Oximetry 96 98 07/17/20 20:00 07/17/20 20:44 07/17/20 22:00 Temperature 36.2 C L Pulse Rate 111 H 87 94 Respiratory Rate 21 H Blood Pressure 98/55 L Pulse Oximetry 98 07/18/20 00:00 07/18/20 02:00 07/18/20 04:00 Temperature 36.2 C L 36.1 C L Pulse Rate 88 89 90 Respiratory Rate 31 H 22 H Blood Pressure 99/63 L 99/57 L Pulse Oximetry 96 93 07/18/20 06:00 07/18/20 08:00 07/18/20 08:43 Temperature 36.3 C L Pulse Rate 102 H 104 H Respiratory Rate 26 H Blood Pressure 104/59 L Pulse Oximetry 93 93 Intake/Output Intake/Output: Intake & Output 07/15/20 07/16/20 07/17/20 07/18/20 23:59 23:59 23:59 23:59 Intake Total 650 850 100 Balance 650 850 100 Meds/Results Medications: Active Medications Generic Name Dose Route Start Last Admin Trade Name Freq PRN Reason Stop Dose Admin Apixaban 5 mg 07/17/20 09:00 07/17/20 16:44 Apixaban 5 Mg Tablet PO 5 mg BID JENNIFER Administration Atorvastatin Calcium 40 mg 07/17/20 09:00 07/17/20 08:30 Atorvastatin 40 Mg Tablet PO 40 mg DAILY JENNIFER Administration Carvedilol 25 mg 07/17/20 00:05 07/17/20 20:44 Carvedilol 25 Mg Tablet PO 25 mg Q12HR JENNIFER Administration Ergocalciferol 50,000 unit 07/28/20 09:00 Ergocalciferol 50,000 Unit Capsule PO Mo@0900 JENNIFER Famotidine 40 mg 07/17/20 09:00 07/17/20 08:30 Famotidine 20 Mg Tablet PO 40 mg DAILY JENNIFER Administration Folic Acid 1 mg 07/17/20 09:00 07/17/20 08:30 Folic Acid 1 Mg Tablet PO 1 mg DAILY JENNIFER Administration Furosemide 40 mg 07/17/20 09:00 07/17/20 08:30 Furosemide Inj 40 Mg/4 Ml Vial IV PUSH 40 mg DAILY JENNIFER Administr
[2020-07-18] MEDS: FAMOTIDINE 20 MG TABLET 40 MG PO (11:08)
[2020-07-18] MEDS: TOLNAFTATE 1% POWDER 45 GM BTL 1 APPLIC TOPICAL ×2 (11:08→22:24)
[2020-07-18] MEDS: polyethylene glycoL 3350 17 GM POWD.PACK PO (11:08)
[2020-07-18] MEDS: PANTOPRAZOLE SOD SESQUIHYDRATE 20 MG TAB PO (11:09)
[2020-07-18] MEDS: carvediloL 25 MG TABLET PO ×2 (11:09→22:23)
[2020-07-18] MEDS: metOLazone 2.5 MG TABLET PO (11:09)
[2020-07-18] MEDS: ATORVASTATIN 40 MG TABLET PO (11:09)
[2020-07-18] MEDS: POTASSIUM CHLORIDE 20 MEQ TABLET 40 MEQ PO (11:09)
[2020-07-18] MEDS: FOLIC ACID 1 MG TABLET PO (11:09)
[2020-07-18] MEDS: FUROSEMIDE INJ 40 MG/4 ML VIAL IV PUSH (11:10)
[2020-07-18] MEDS: POTASSIUM CHLORIDE 10 MEQ TABLET.ER 20 MEQ PO (11:10)
[2020-07-18] MEDS: APIXABAN 5 MG TABLET PO ×2 (11:10→19:13)
[2020-07-18 17:05] LABS: SARS-CoV-2 RNA PCR Negative
[2020-07-19] VITALS (21 sets, daily range): BP systolic 100–125; BP diastolic 49–84; PULSE 78–115; RESP 16–28; TEMP 35.6–36.9; O2SAT 90–100
[2020-07-19 05:47] LABS: Anion Gap 8.99999 mmol/L (8-16); Blood Urea Nitrogen 28 mg/dL (7-17); Calcium 9.5 mg/dL (8.4-10.2); Carbon Dioxide > 40 mmol/L (22-30); Chloride 86 mmol/L (98-107); Estimated CRCL calculation 39 ml/min; Estimated Glomerular Filt Rate 48; Glucose 98 mg/dL (65-105); Potassium 3.3 mmol/L (3.4-5.0); Sodium 135 mmol/L (137-145)
--- NOTE | 2020-07-19 07:57 | PM.IMPN ---
Progress Note: A&P Assessment and Plan (1) Acute exacerbation of congestive heart failure: Qualifiers: Heart failure type: unspecified Qualified Code(s): I50.9 - Heart failure, unspecified Code(s): I50.9 - Heart failure, unspecified Status: Chronic Assessment and Plan: -Continue with IV Lasix for diuresis with metolazone -Patient has had multiple readmissions for the same issue over the past couple years exacerbation of her diastolic heart failure -echocardiogram pending -chronically on 3-4 L home oxygen therapy -patient is DNR and is agreeable to BiPAP q.h.s. -continue IV diuresis while inpatient and will transition to p.o. Bumex on discharge (2) Acute and chronic respiratory failure: Qualifiers: Respiratory failure complication: hypoxia and hypercapnia Qualified Code(s): J96.21 - Acute and chronic respiratory failure with hypoxia; J96.22 - Acute and chronic respiratory failure with hypercapnia Code(s): J96.20 - Acute and chronic respiratory failure, unspecified whether with hypoxia or hypercapnia Status: Acute Assessment and Plan: Supportive care keep oxygen saturation greater 90% See above (3) Epistaxis: Code(s): R04.0 - Epistaxis Status: Acute Assessment and Plan: Resolved (4) Atrial fibrillation: Onset Date: ~03/2019 Qualifiers: Atrial fibrillation type: permanent Qualified Code(s): I48.21 - Permanent atrial fibrillation Code(s): I48.91 - Unspecified atrial fibrillation Status: Acute Assessment and Plan: -Eliquis for her anticoagulation -Coreg 25 mg b.i.d. for rate control (5) Mixed hyperlipidemia: Code(s): E78.2 - Mixed hyperlipidemia Status: Chronic Assessment and Plan: Continue statin (6) Essential (primary) hypertension: Code(s): I10 - Essential (primary) hypertension Status: Chronic Assessment and Plan: Stable (7) Hypokalemia: Code(s): E87.6 - Hypokalemia Status: Acute Assessment and Plan: Secondary diuresis, repeating as needed Additional Plan # chronic conditions -constipation: Continue MiraLax -GERD: Continue home PPI and Pepcid Diet: Cardiac DVT prophylaxis: On Eliquis Code status: DNR/DNI Disposition: Med surg with telemetry for continued diuresis Subjective Date/time seen: 07/19/20 07:57 Patient examined. Cardiology to see patient today. Patient's AFib is under control, continuing diuresis with IV Lasix. Cardiology will add another dose of Lasix in the afternoon. Patient is stable can move up the medical floor with tele. Patient denies fever, chills, nausea, vomiting, diarrhea, lightheadedness, dizziness, chest pain, dyspnea. She is on 4 L oxygen rest currently, patient states she has had 3-3.5 at rest and 4 with activity. Continue IV diuresis for now. Review of Systems Review of Systems: All systems reviewed & are unremarkable except as noted in HPI and below Exam Narrative: Exam Narrative: - GENERAL: Pleasant woman in no acute distress on 4 L oxygen - EYES: EOMI. Anicteric. - HENT: Moist mucous membranes. - LUNGS: Diminished lung sounds, crackles - CARDIOVASCULAR: Irregularly irregular. No JVD. - ABDOMEN: Soft, non-tender and non-distended. - EXTREMITIES: 2+ pitting edema, decreasing edema. Peripheral pulses 2+. - NEUROLOGIC: No focal neurological deficits. CN II-XII grossly intact. - PSYCHIATRIC: Awake, Alert and oriented x 3. Appropriate mood and affect. Objective Data Vital Signs Vital Signs: Vital Signs - 24 hr 07/18/20 08:00 07/18/20 08:43 07/18/20 11:09 Temperature 36.3 C L Pulse Rate 85 89 Respiratory Rate 26 H Blood Pressure 104/59 L Pulse Oximetry 93 93 07/18/20 12:00 07/18/20 14:00 07/18/20 15:20 Temperature 36.4 C L Pulse Rate 104 H 81 106 H Respiratory Rate 26 H 20 Blood Pressure 129/82 101/87 Pulse Oximetry 95 90 07/18/20 16:00 07/18/20 18:00 06/23
[2020-07-19] MEDS: FOLIC ACID 1 MG TABLET PO (09:27)
[2020-07-19] MEDS: TOLNAFTATE 1% POWDER 45 GM BTL 1 APPLIC TOPICAL ×2 (09:27→20:38)
[2020-07-19] MEDS: FUROSEMIDE INJ 40 MG/4 ML VIAL IV PUSH (09:27)
[2020-07-19] MEDS: carvediloL 25 MG TABLET PO ×2 (09:27→20:37)
[2020-07-19] MEDS: PANTOPRAZOLE SOD SESQUIHYDRATE 20 MG TAB PO (09:27)
[2020-07-19] MEDS: FAMOTIDINE 20 MG TABLET 40 MG PO (09:27)
[2020-07-19] MEDS: polyethylene glycoL 3350 17 GM POWD.PACK PO (09:27)
[2020-07-19] MEDS: APIXABAN 5 MG TABLET PO ×2 (09:28→17:27)
[2020-07-19] MEDS: POTASSIUM CHLORIDE 10 MEQ TABLET.ER 20 MEQ PO (09:28)
[2020-07-19] MEDS: ATORVASTATIN 40 MG TABLET PO (09:28)
--- NOTE | 2020-07-19 11:07 | PM.PNCARD ---
Progress Note: A&P Assessment and Plan (1) Acute on chronic diastolic CHF (congestive heart failure): Code(s): I50.33 - Acute on chronic diastolic (congestive) heart failure Status: Acute Assessment and Plan: Patient getting furosemide 40 mg IV push daily, but still orthopneic and still with edema. However, her chest x-ray has shown some improvement though still with some pulmonary vascular congestion, and her edema sounds better to. Has mild hypokalemia, will supplement and recheck tomorrow. Taking home dose Kcl 20 mEq qd. I think she should get further IV diuresis and will order an extra dose of furosemide 20 mg IV push today, but she can be moved to a medical floor. Possibly discharge tomorrow, on increased metolazone and usual dose of Bumex ? Will need BMP followed. (2) Atrial fibrillation: Onset Date: ~03/2019 Qualifiers: Atrial fibrillation type: permanent Qualified Code(s): I48.21 - Permanent atrial fibrillation Code(s): I48.91 - Unspecified atrial fibrillation Status: Acute Assessment and Plan: Telemetry on my personal review shows heart rate generally running 90-100, acceptable, on carvedilol 25 mg b.i.d.. Anticoagulated with Eliquis. (3) Epistaxis: Code(s): R04.0 - Epistaxis Status: Acute Assessment and Plan: No further epistaxis. Patient asked if she really needs to continue the Eliquis and I recommend that we stick with that to prevent cardioembolic events. Subjective Date/time seen: 07/19/20 11:07 Interval history: Follow-up visit in this 79-year-old lady with chronic diastolic heart failure. She came to the hospital primarily because of epistaxis which has been resolved. 07/18/2020: S He continues to have shortness of breath and does have conversational dyspnea when I am seeing her. According to the hospitalist this seems to be her baseline. As I am not her chronic outpatient physician I do not have any personal knowledge of what her baseline looks like. It is of some concern that with conversation though she is still short of breath. COVID results are still pending. Date of service 07/19/2020: Still with MONTILLA with mild activity. Still orthopneic. Mild edema. Says she is not urinating much more than she does at home. Still on 4 L O2, but uses 3.5 L at home. COVID negative. Echo not yet read. I's and O's incomplete. Review of Systems Constitutional: Constitutional: Reports fatigue ENT: Denies nasal congestion Cardiovascular: Cardiovascular: Denies chest pain, Reports pedal edema, Reports leg edema and Denies palpitations Respiratory: Respiratory: Denies cough and Reports dyspnea on exertion Gastrointestinal: Gastrointestinal: Denies abdominal pain Genitourinary: Genitourinary: Denies hematuria Musculoskeletal: Musculoskeletal: Denies back pain Integumentary/Breasts: Skin/Breast: Denies rash Neurologic: Reports system reviewed and no additional complaints, except as documented Psychiatric: Psychiatric: Reports no additional psychiatric complaints Exam Narrative: Exam Narrative: Older lady sitting in a chair, recognizes me, no distress Const: General: comfortable and no acute distress HENMT: General nose exam: no epistaxis Eyes: EOM: EOMs intact bilaterally Other: Slight left ptosis noted Neck: Neck: supple Resp: Effort & Inspection: normal respiratory effort Auscultation: rales Other: Fine rales throughout most of the right lung, and about mcc up left with decreased breath sounds in the right base Cardio: Rhythm: abnormal rhythm Heart sounds: no murmurs Skin: General skin exam: normal color Neuro: Cognition (Neuro): normal cognition Speech: normal speech Motor exam (neuro): Normal motor muscle tone present throughout Extrem: General: edema (Mild pretibial edema) bilate
[2020-07-19] MEDS: POTASSIUM CHLORIDE 20 MEQ TABLET PO (12:42)
--- NOTE | 2020-07-19 13:45 | PC.NURSE ---
This patient, Elizabeth Montana, was received from IMU on 07/19/20 at 1403. Patient/family oriented to unit policies and routines. REBECA Gomes received report from REBECA Hester from IMU.
--- NOTE | 2020-07-19 13:51 | PC.NURSE ---
This patient, Elizabeth Montana, was transferred to [facility] on 07/19/20 at 1340. Personal belongings sent with patient. Report given to Cecilia JOSE. Appropriate documentation sent with patient.
[2020-07-19] MEDS: FUROSEMIDE INJ 40 MG/4 ML VIAL 20 MG IV PUSH (15:27)
[2020-07-20] VITALS (20 sets, daily range): BP systolic 96–111; BP diastolic 40–76; PULSE 61–125; RESP 16–30; TEMP 36–36.6; O2SAT 72–98
[2020-07-20 06:46] LABS: Anion Gap 12.99999 mmol/L (8-16); Blood Urea Nitrogen 30 mg/dL (7-17); Calcium 9.7 mg/dL (8.4-10.2); Carbon Dioxide > 40 mmol/L (22-30); Chloride 83 mmol/L (98-107); Estimated CRCL calculation 36 ml/min; Estimated Glomerular Filt Rate 43; Glucose 92 mg/dL (65-105); Sodium 136 mmol/L (137-145)
[2020-07-20] MEDS: APIXABAN 5 MG TABLET PO ×2 (09:53→16:56)
[2020-07-20] MEDS: POTASSIUM CHLORIDE 10 MEQ TABLET.ER 20 MEQ PO (09:53)
[2020-07-20] MEDS: POTASSIUM CHLORIDE 20 MEQ TABLET 40 MEQ PO (09:53)
[2020-07-20] MEDS: polyethylene glycoL 3350 17 GM POWD.PACK PO (09:54)
[2020-07-20] MEDS: ATORVASTATIN 40 MG TABLET PO (09:54)
[2020-07-20] MEDS: FOLIC ACID 1 MG TABLET PO (09:54)
[2020-07-20] MEDS: FAMOTIDINE 20 MG TABLET 40 MG PO (09:54)
[2020-07-20] MEDS: PANTOPRAZOLE SOD SESQUIHYDRATE 20 MG TAB PO (09:54)
[2020-07-20] MEDS: TOLNAFTATE 1% POWDER 45 GM BTL 1 APPLIC TOPICAL ×2 (09:55→20:32)
[2020-07-20] MEDS: FUROSEMIDE INJ 40 MG/4 ML VIAL IV PUSH (10:03)
[2020-07-20] MEDS: carvediloL 25 MG TABLET PO ×2 (10:04→20:31)
--- NOTE | 2020-07-20 10:16 | PM.PNCARD ---
Progress Note: A&P Assessment and Plan (1) Acute on chronic diastolic CHF (congestive heart failure): Code(s): I50.33 - Acute on chronic diastolic (congestive) heart failure Status: Acute Assessment and Plan: Patient getting furosemide 40 mg IV push daily, but still with dyspnea, some of which is chronic due to her chronic lung disease. However, her chest x-ray has shown some improvement though still with some pulmonary vascular congestion, and her edema is better too. Weight down 1 kilo. Has mild hypokalemia, will again supplement and recheck tomorrow, w/ BNP. Taking home dose Kcl 20 mEq qd, will increase to b.i.d. Renal function is tolerating the diuresis; will give an extra 20 mg g of Lasix this afternoon. She feels too weak for discharge. Possibly discharge tomorrow, on increased metolazone (Tuesday) and usual dose of Bumex ? Will need BMP followed. Likely will need home health care with physical therapy and occupational therapy. (2) Atrial fibrillation: Onset Date: ~03/2019 Qualifiers: Atrial fibrillation type: permanent Qualified Code(s): I48.21 - Permanent atrial fibrillation Code(s): I48.91 - Unspecified atrial fibrillation Status: Acute Assessment and Plan: Telemetry on my personal review shows heart rate generally running 90-100, acceptable, on carvedilol 25 mg b.i.d.. Anticoagulated with Eliquis. (3) Epistaxis: Code(s): R04.0 - Epistaxis Status: Acute Assessment and Plan: No further epistaxis. (4) Pulmonary hypertension: Code(s): I27.20 - Pulmonary hypertension, unspecified Status: Acute Assessment and Plan: Has severe pulmonary hypertension, related to her chronic diastolic heart failure and chronic lung disease. (5) Respiratory failure: Qualifiers: Chronicity: acute on chronic Respiratory failure complication: unspecified whether with hypoxia or hypercapnia Qualified Code(s): J96.20 - Acute and chronic respiratory failure, unspecified whether with hypoxia or hypercapnia Code(s): J96.90 - Respiratory failure, unspecified, unspecified whether with hypoxia or hypercapnia Status: Acute Assessment and Plan: Chronic lung disease is followed by Dr. Martel. On home O2 and CPAP at home. Subjective Date/time seen: 07/20/20 10:16 Interval history: Follow-up visit in this 79-year-old lady with chronic diastolic heart failure. She came to the hospital primarily because of epistaxis which has been resolved. 07/18/2020: S He continues to have shortness of breath and does have conversational dyspnea when I am seeing her. According to the hospitalist this seems to be her baseline. As I am not her chronic outpatient physician I do not have any personal knowledge of what her baseline looks like. It is of some concern that with conversation though she is still short of breath. COVID results are still pending. 07/19/2020: Still with MONTILLA with mild activity. Still orthopneic. Mild edema. Says she is not urinating much more than she does at home. Still on 4 L O2, but uses 3.5 L at home. COVID negative. Echo not yet read. I's and O's incomplete. Extra Lasix 20 mg IV push given. Date of Service 07/20/2020: Patient is still feeling weak and breathless. Lives in assisted living and does not think she can take care of herself quite yet. Did sleep well, used CPAP. Physical therapy notes poor endurance recommends ongoing PT. Echo as below, normal left ventricular function, RV enlargement, severe pulmonary hypertension. Telemetry shows AFib rates generally 80-90s. Review of Systems Constitutional: Constitutional: Reports fatigue, Reports lethargy and Reports weakness ENT: Reports Normal hearing presen
--- NOTE | 2020-07-20 14:53 | PM.IMPN ---
Progress Note: A&P Assessment and Plan (1) Acute exacerbation of congestive heart failure: Qualifiers: Heart failure type: unspecified Qualified Code(s): I50.9 - Heart failure, unspecified Code(s): I50.9 - Heart failure, unspecified Status: Chronic Assessment and Plan: -Continue with IV Lasix for diuresis with metolazone -Patient has had multiple readmissions for the same issue over the past couple years exacerbation of her diastolic heart failure -echocardiogram normal left ventricular size and thickness, EF 65-70%, indeterminate diastolic dysfunction, severe pulmonary hypertension pulmonary artery systolic pressure 90 mmHg -chronically on 3-4 L home oxygen therapy, currently on 4 L O2 -patient is DNR and is agreeable to BiPAP as needed -continue IV diuresis while inpatient and will transition to p.o. Bumex on discharge (2) Acute and chronic respiratory failure: Qualifiers: Respiratory failure complication: hypoxia and hypercapnia Qualified Code(s): J96.21 - Acute and chronic respiratory failure with hypoxia; J96.22 - Acute and chronic respiratory failure with hypercapnia Code(s): J96.20 - Acute and chronic respiratory failure, unspecified whether with hypoxia or hypercapnia Status: Acute Assessment and Plan: Supportive care keep oxygen saturation greater 90% See above (3) Epistaxis: Code(s): R04.0 - Epistaxis Status: Acute Assessment and Plan: Resolved (4) Atrial fibrillation: Onset Date: ~03/2019 Qualifiers: Atrial fibrillation type: permanent Qualified Code(s): I48.21 - Permanent atrial fibrillation Code(s): I48.91 - Unspecified atrial fibrillation Status: Acute Assessment and Plan: -Eliquis for her anticoagulation -Coreg 25 mg b.i.d. for rate control -patient with RVR and needed an extra dose of 12.5 mg Coreg in the afternoon (5) Mixed hyperlipidemia: Code(s): E78.2 - Mixed hyperlipidemia Status: Chronic Assessment and Plan: Continue statin (6) Essential (primary) hypertension: Code(s): I10 - Essential (primary) hypertension Status: Chronic Assessment and Plan: Stable (7) Hypokalemia: Code(s): E87.6 - Hypokalemia Status: Acute Assessment and Plan: Secondary diuresis, repeating as needed Additional Plan # chronic conditions -constipation: Continue MiraLax -GERD: Continue home PPI and Pepcid Diet: Cardiac DVT prophylaxis: On Eliquis Code status: DNR/DNI Disposition: Med surg with telemetry for continued diuresis Subjective Date/time seen: 07/20/20 14:53 Patient examined. Today she had no complaints, diuresis had been increased by Cardiology. Subsequent potassiums has been dropping and needing repletion. Patient's blood pressure is becoming soft and will be careful with diuresis. Patient went into AFib with RVR likely secondary to having her oxygen disconnected. She was put back on BiPAP and she was given 1 time dose of Coreg 12.5mg. Echocardiogram showed EF 65-70%, diastolic function indeterminate. Patient denies fever, chills, nausea, vomiting, diarrhea. She endorses dyspnea, generalized weakness, fatigue. Review of Systems Review of Systems: All systems reviewed & are unremarkable except as noted in HPI and below Constitutional: Constitutional: Reports as per HPI and Reports no additional constitutional complaints Eyes: Eyes: Reports as per HPI and Reports no additional eye complaints ENT: Reports system reviewed and no additional complaints, except as documented and Reports Normal hearing present Cardiovascular: Cardiovascular: Reports no additional cardiovascular complaints Respiratory: Respiratory: Reports no additional respiratory complaints and Reports no additional respiratory complaints Gastrointestinal: Gastrointestinal: Reports as per HPI and Reports no additional gastrointestinal complaints Musculoskeletal:
--- NOTE | 2020-07-20 15:15 | PCOTNOTE ---
Per RN, therapy treatment should be withheld today as the patient's HR jumping to around 150 BPM, O2 saturation around 80%, and patient now on bipap. Therapy treatment session not completed this date for this reason. Will continue plan of care tomorrow, 07/21/2020 if appropriate.
[2020-07-20] MEDS: ACETAMINOPHEN 325 MG TABLET 650 MG PO (16:56)
[2020-07-20] MEDS: carvediloL 12.5 MG TABLET PO (16:57)
[2020-07-21] VITALS (16 sets, daily range): BP systolic 94–120; BP diastolic 49–68; PULSE 68–141; RESP 16–24; TEMP 36.2–36.6; O2SAT 92–97
[2020-07-21 05:54] LABS: Anion Gap 10.99999 mmol/L (8-16); Blood Urea Nitrogen 34 mg/dL (7-17); Calcium 9.4 mg/dL (8.4-10.2); Carbon Dioxide > 40 mmol/L (22-30); Chloride 83 mmol/L (98-107); Estimated CRCL calculation 31 ml/min; Estimated Glomerular Filt Rate 36; Glucose 94 mg/dL (65-105); Potassium 3.3 mmol/L (3.4-5.0); Sodium 134 mmol/L (137-145)
[2020-07-21 05:56] LABS: NT Pro B Type Natriuretic Pept 2960 PG/ML (5-100)
[2020-07-21] MEDS: carvediloL 25 MG TABLET PO (07:58)
[2020-07-21] MEDS: APIXABAN 5 MG TABLET PO ×2 (10:00→16:49)
[2020-07-21] MEDS: FAMOTIDINE 20 MG TABLET 40 MG PO (10:00)
[2020-07-21] MEDS: POTASSIUM CHLORIDE 10 MEQ TABLET.ER 20 MEQ PO ×2 (10:00→16:49)
[2020-07-21] MEDS: ATORVASTATIN 40 MG TABLET PO (10:00)
[2020-07-21] MEDS: metOLazone 2.5 MG TABLET PO (10:01)
[2020-07-21] MEDS: TOLNAFTATE 1% POWDER 45 GM BTL 1 APPLIC TOPICAL ×2 (10:01→20:30)
[2020-07-21] MEDS: FOLIC ACID 1 MG TABLET PO (10:01)
[2020-07-21] MEDS: PANTOPRAZOLE SOD SESQUIHYDRATE 20 MG TAB PO (10:01)
[2020-07-21] MEDS: FUROSEMIDE INJ 40 MG/4 ML VIAL IV PUSH (10:01)
--- NOTE | 2020-07-21 12:02 | PM.IMPN ---
Progress Note: A&P Assessment and Plan (1) Acute exacerbation of congestive heart failure: Qualifiers: Heart failure type: unspecified Qualified Code(s): I50.9 - Heart failure, unspecified Code(s): I50.9 - Heart failure, unspecified Status: Chronic Assessment and Plan: -Continue with IV Lasix for diuresis with metolazone -Patient has had multiple readmissions for the same issue over the past couple years exacerbation of her diastolic heart failure -echocardiogram normal left ventricular size and thickness, EF 65-70%, indeterminate diastolic dysfunction, severe pulmonary hypertension pulmonary artery systolic pressure 90 mmHg, this may be a progression of her diastolic heart failure and pulmonary hypertension -chronically on 3-4 L home oxygen therapy, currently on 4 L O2 -patient is DNR and is agreeable to BiPAP as needed -continue IV diuresis while inpatient and will transition to p.o. Bumex on discharge, cardiology to assist -patient work with physical therapy (2) Acute and chronic respiratory failure: Qualifiers: Respiratory failure complication: hypoxia and hypercapnia Qualified Code(s): J96.21 - Acute and chronic respiratory failure with hypoxia; J96.22 - Acute and chronic respiratory failure with hypercapnia Code(s): J96.20 - Acute and chronic respiratory failure, unspecified whether with hypoxia or hypercapnia Status: Acute Assessment and Plan: Supportive care keep oxygen saturation greater 90%, on 4 L See above (3) Epistaxis: Code(s): R04.0 - Epistaxis Status: Acute Assessment and Plan: Resolved (4) Atrial fibrillation: Onset Date: ~03/2019 Qualifiers: Atrial fibrillation type: permanent Qualified Code(s): I48.21 - Permanent atrial fibrillation Code(s): I48.91 - Unspecified atrial fibrillation Status: Acute Assessment and Plan: -Eliquis for her anticoagulation -Coreg 25 mg b.i.d. for rate control -yesterday she needed an extra dose of 12.5 mg Coreg. Heart rate stable today morning. (5) Mixed hyperlipidemia: Code(s): E78.2 - Mixed hyperlipidemia Status: Chronic Assessment and Plan: Continue statin (6) Essential (primary) hypertension: Code(s): I10 - Essential (primary) hypertension Status: Chronic Assessment and Plan: Stable (7) Hypokalemia: Code(s): E87.6 - Hypokalemia Status: Acute Assessment and Plan: Secondary diuresis, repeating as needed Additional Plan # chronic conditions -constipation: Continue MiraLax -GERD: Continue home PPI and Pepcid Diet: Cardiac DVT prophylaxis: On Eliquis Code status: DNR/DNI Disposition: Med surg with telemetry for continued diuresis Social: Carlos Ceja updated 07/21/2020 Subjective Date/time seen: 07/21/20 12:02 Patient examined. Patient feels about the same. She is still on 4 L oxygen. Blood pressure was getting low with the aggressive diuresis, stable today. We will continue her lasix. Supplementing potassium with the diuresis. Increasing home potassium to 20 mg b.i.d.. Cardiology may want to increase metolazone to 3 times a week. After diuresing for a few days this may be her new normal. I updated the son Marcial about her hospitalization and the progression of her disease. I introduced the concept of palliative care to the family and they want to see how she does for the rest of the hospitalization. Patient has CPAP at home not BiPAP. Review of Systems Review of Systems: All systems reviewed & are unremarkable except as noted in HPI and below Exam Narrative: Exam Narrative: - GENERAL: Pleasant woman breathing comfortably on 4 L of oxygen seated in chair. - EYES: EOMI. Anicteric. - HENT: Moist mucous membranes. - LUNGS: Diminished lung sounds, crackles - CARDIOVASCULAR: Irregularly irregular. No JVD. - ABDOMEN: Soft, non-tender and non-distended. - EXTREMITIES: 2+ pitting edema, d
[2020-07-21] MEDS: POTASSIUM CHLORIDE 20 MEQ TABLET 40 MEQ PO (12:23)
--- NOTE | 2020-07-21 12:44 | PM.PNCARD ---
Progress Note: A&P Assessment and Plan (1) Acute on chronic diastolic CHF (congestive heart failure): Code(s): I50.33 - Acute on chronic diastolic (congestive) heart failure Status: Acute Assessment and Plan: Patient getting furosemide 40 mg IV push daily, but still with dyspnea, some of which is chronic due to her chronic lung disease. Persistent hypokalemia, give additional supplement as schedule increase to 40 mEq in a.m. and 20 mg a in afternoon. Monitor potassium while in hospital in check 1 week after discharge. Likely will need home health care with physical therapy and occupational therapy. (2) Atrial fibrillation: Onset Date: ~03/2019 Qualifiers: Atrial fibrillation type: permanent Qualified Code(s): I48.21 - Permanent atrial fibrillation Code(s): I48.91 - Unspecified atrial fibrillation Status: Acute Assessment and Plan: Heart rate quite rapid with any activity and patient is symptomatic. Discontinue carvedilol in favor of metoprolol tartrate 75 mg q.8 hours appropriate heart rate control. Observed tolerance. Will attempt to transition to simpler regimen once heart rate better controlled. Anticoagulated with Eliquis. (3) Epistaxis: Code(s): R04.0 - Epistaxis Status: Acute Assessment and Plan: resolve (4) Pulmonary hypertension: Code(s): I27.20 - Pulmonary hypertension, unspecified Status: Acute Assessment and Plan: Has severe pulmonary hypertension, related to her chronic diastolic heart failure and chronic lung disease. (5) Respiratory failure: Qualifiers: Chronicity: acute on chronic Respiratory failure complication: unspecified whether with hypoxia or hypercapnia Qualified Code(s): J96.20 - Acute and chronic respiratory failure, unspecified whether with hypoxia or hypercapnia Code(s): J96.90 - Respiratory failure, unspecified, unspecified whether with hypoxia or hypercapnia Status: Acute Assessment and Plan: Chronic lung disease is followed by Dr. Martel. On home O2 and CPAP at home. Subjective Date/time seen: Date of service: 07/21/20 12:44 Interval history: Follow-up visit in this 79-year-old lady with chronic diastolic heart failure. She came to the hospital primarily because of epistaxis which has been resolved. 07/18/2020: S He continues to have shortness of breath and does have conversational dyspnea when I am seeing her. According to the hospitalist this seems to be her baseline. As I am not her chronic outpatient physician I do not have any personal knowledge of what her baseline looks like. It is of some concern that with conversation though she is still short of breath. COVID results are still pending. 07/19/2020: Still with M[place] with mild activity. Still orthopneic. Mild edema. Says she is not urinating much more than she does at home. Still on 4 L O2, but uses 3.5 L at home. COVID negative. Echo not yet read. I's and O's incomplete. Extra Lasix 20 mg IV push given. 07/20/2020: Patient is still feeling weak and breathless. Lives in assisted living and does not think she can take care of herself quite yet. Did sleep well, used CPAP. Physical therapy notes poor endurance recommends ongoing PT. Echo as below, normal left ventricular function, RV enlargement, severe pulmonary hypertension. Telemetry shows AFib rates generally 80-90s. DATE OF SERVICE: 07/21/20 Patient feels okay at rest but more tired, rapid palpitations in her chest with any activity. Heart rate increased to 150-160 beats per minute in atrial fibrillation with activity, 90s to 100s at rest. Breathing about the same as yesterday. Denies dizziness or bleeding. No chest pain. / Review of Systems Osmari
[2020-07-21] MEDS: METOPROLOL TARTRATE TAB 25 MG, METOPROLOL TARTRATE TAB 50 MG 75 MG PO ×2 (13:58→21:06)
[2020-07-22] VITALS (16 sets, daily range): BP systolic 91–117; BP diastolic 55–70; PULSE 77–115; RESP 20–24; TEMP 36.1–37.2; O2SAT 89–99
[2020-07-22] MEDS: METOPROLOL TARTRATE TAB 25 MG, METOPROLOL TARTRATE TAB 50 MG 75 MG PO ×3 (05:47→21:24)
[2020-07-22 05:48] LABS: Hematocrit 41.6 % (37.0-47.0); Hemoglobin 13.6 g/dL (12.0-15.0); Mean Corpuscular HGB Conc 32.7 g/dl (32-36); Mean Corpuscular Hemoglobin 28.5 pg (26-34); Mean Corpuscular Volume 87.2 fl (80-100); Mean Platelet Volume 10.3 fl (7.4-10.4); Platelet Count Result 208 k/mm3 (150-375); Red Blood Count 4.77 M/mm3 (4.2-5.4); White Blood Count 7.1 K/mm3 (4.5-10.0)
[2020-07-22 06:05] LABS: Anion Gap 7.99999 mmol/L (8-16); Blood Urea Nitrogen 44 mg/dL (7-17); Calcium 9.2 mg/dL (8.4-10.2); Carbon Dioxide > 40 mmol/L (22-30); Chloride 83 mmol/L (98-107); Estimated CRCL calculation 31 ml/min; Estimated Glomerular Filt Rate 36; Glucose 108 mg/dL (65-105); Magnesium 1.8 mg/dL (1.6-2.3); Potassium 3.8 mmol/L (3.4-5.0); Sodium 131 mmol/L (137-145)
--- NOTE | 2020-07-22 08:17 | PCOTNOTE ---
Attempted to see Patient at this time. Patient refused to participate with any activities at this time. Patient complained of feeling horrible, I am having a hard time breathing and my heart rate goes crazy when I move. RN notified of Patients complaints and is aware.
--- NOTE | 2020-07-22 08:52 | PCPTNOTE ---
Patient refused treatment this session due to feel tired and weak. Patient report she did not sleep last night and would like to be left alone. Patient was encouraged to try and eat and sit up/ move to reduce atrophy and improved energy. Patient again declined and stated she wanted to rest and be left alone.
[2020-07-22] MEDS: APIXABAN 5 MG TABLET PO ×2 (09:10→18:00)
[2020-07-22] MEDS: FAMOTIDINE 20 MG TABLET 40 MG PO (09:11)
[2020-07-22] MEDS: ATORVASTATIN 40 MG TABLET PO (09:11)
[2020-07-22] MEDS: PANTOPRAZOLE SOD SESQUIHYDRATE 20 MG TAB PO (09:11)
[2020-07-22] MEDS: FUROSEMIDE INJ 40 MG/4 ML VIAL IV PUSH (09:11)
[2020-07-22] MEDS: POTASSIUM CHLORIDE 10 MEQ TABLET.ER 20 MEQ PO ×2 (09:11→18:01)
[2020-07-22] MEDS: FOLIC ACID 1 MG TABLET PO (09:11)
[2020-07-22] MEDS: TOLNAFTATE 1% POWDER 45 GM BTL 1 APPLIC TOPICAL ×2 (09:24→21:24)
--- NOTE | 2020-07-22 11:06 | PC.NURSE ---
Patient with fluctuations in heartrate noted. With minimal activity (conversation, moving in bed, etc) heartrate noted to be in the 150s-160s. When resting, HR returns to the 110s. Patient also c/o dyspnea with minimal activity. Dr. Boo here making rounds and notified of all of the above.
--- NOTE | 2020-07-22 13:34 | PM.PNCARD ---
Progress Note: A&P Assessment and Plan (1) Acute on chronic diastolic CHF (congestive heart failure): Code(s): I50.33 - Acute on chronic diastolic (congestive) heart failure Status: Acute Assessment and Plan: Furosemide 40 mg IV push daily but still with dyspnea, some of which is chronic due to her chronic lung disease. BUN and creatinine are climbing. May be becoming intravascularly dry. Willl stop IV Lasix. Restart her home dose of bumetanide 2 mg b.i.d. starting tomorrow pending results of BMP in the morning. Chest x-ray in the morning. Persistent hypokalemia now resolving. Monitor potassium while in hospital and check 1 week after discharge. Likely will need home health care with physical therapy and occupational therapy. (2) Atrial fibrillation: Onset Date: ~03/2019 Qualifiers: Atrial fibrillation type: permanent Qualified Code(s): I48.21 - Permanent atrial fibrillation Code(s): I48.91 - Unspecified atrial fibrillation Status: Acute Assessment and Plan: Heart rate quite rapid with any activity and she is symptomatic. Carvedilol has been discontinued in favor of metoprolol tartrate 75 mg q.8 hours for appropriate heart rate control. Observed tolerance. Blood pressure soft but asymptomatic. Will attempt to transition to simpler regimen once heart rate better controlled. Anticoagulated with Eliquis. (3) Epistaxis: Code(s): R04.0 - Epistaxis Status: Acute Assessment and Plan: Resolved. (4) Pulmonary hypertension: Code(s): I27.20 - Pulmonary hypertension, unspecified Status: Acute Assessment and Plan: Has severe pulmonary hypertension, related to her chronic diastolic heart failure and chronic lung disease. (5) Respiratory failure: Qualifiers: Chronicity: acute on chronic Respiratory failure complication: unspecified whether with hypoxia or hypercapnia Qualified Code(s): J96.20 - Acute and chronic respiratory failure, unspecified whether with hypoxia or hypercapnia Code(s): J96.90 - Respiratory failure, unspecified, unspecified whether with hypoxia or hypercapnia Status: Acute Assessment and Plan: Chronic lung disease is followed by Dr. Martel. On home O2 and CPAP at home. Additional Plan Plan discussed with Dr Boo 1350 07/22/2020 Subjective Date/time seen: 07/22/20 13:34 Interval history: Follow-up for: chronic diastolic heart failure. She came to the hospital primarily because of epistaxis which has been resolved. Atrial fibrillation with rapid ventricular response Date of service: 07/22/2020 Subjective: Short of breath with exertional activities and conversation. Has difficulty eating and breathing at the same time. Denied any pain. No lightheadedness. Denied palpitations today. Review of Systems Constitutional: Constitutional: Reports fatigue and Reports weakness Eyes: Eyes: Denies blurry vision ENT: Denies dizziness, Reports hearing loss, Denies epistaxis and Denies nasal congestion Cardiovascular: Cardiovascular: Reports as per HPI, Denies chest pain, Reports pedal edema, Denies leg edema, Denies lightheadedness, Denies palpitations, Reports dyspnea and Reports dyspnea on exertion Respiratory: Respiratory: Denies chest congestion, Denies cough, Reports dyspnea, Reports dyspnea on exertion and Denies wheezing Gastrointestinal: Gastrointestinal: Denies abdominal pain Genitourinary: Genitourinary: Denies hematuria Musculoskeletal: Musculoskeletal: Denies back pain Integumentary/Breasts: Skin/Breast: Reports system reviewed and no additional complaints, except as docu and Denies rash Neurologic: Denies confusion, Denies dizziness and Reports weakness Psychiatric: Psychiatric:
--- NOTE | 2020-07-22 14:11 | PM.IMPN ---
Progress Note: A&P Assessment and Plan (1) Acute exacerbation of congestive heart failure: Qualifiers: Heart failure type: unspecified Qualified Code(s): I50.9 - Heart failure, unspecified Code(s): I50.9 - Heart failure, unspecified Status: Chronic Assessment and Plan: -Continue with IV Lasix for diuresis with metolazone -Patient has had multiple readmissions for the same issue over the past couple years exacerbation of her diastolic heart failure -chronically on 3-4 L home oxygen therapy, currently on 4 L O2 -patient is DNR and is agreeable to BiPAP as needed -continue IV diuresis while inpatient and will transition to p.o. Bumex on discharge, cardiology to assist -patient work with physical therapy - cardiology rounding -EF is EF 65-70%, indeterminate diastolic dysfunction family considering hospice. (2) Acute and chronic respiratory failure: Qualifiers: Respiratory failure complication: hypoxia and hypercapnia Qualified Code(s): J96.21 - Acute and chronic respiratory failure with hypoxia; J96.22 - Acute and chronic respiratory failure with hypercapnia Code(s): J96.20 - Acute and chronic respiratory failure, unspecified whether with hypoxia or hypercapnia Status: Acute Assessment and Plan: Supportive care keep oxygen saturation greater 90%, on 4 L CXR melisa AM (3) Epistaxis: Code(s): R04.0 - Epistaxis Status: Acute Assessment and Plan: Resolved (4) Atrial fibrillation: Onset Date: ~03/2019 Qualifiers: Atrial fibrillation type: permanent Qualified Code(s): I48.21 - Permanent atrial fibrillation Code(s): I48.91 - Unspecified atrial fibrillation Status: Acute Assessment and Plan: -Eliquis for her anticoagulation -Changed to metoprolol by cardiology continue to watch Bp is soft (5) Mixed hyperlipidemia: Code(s): E78.2 - Mixed hyperlipidemia Status: Chronic Assessment and Plan: Continue statin (6) Essential (primary) hypertension: Code(s): I10 - Essential (primary) hypertension Status: Chronic Assessment and Plan: Stable (7) Hypokalemia: Code(s): E87.6 - Hypokalemia Status: Acute Assessment and Plan: Secondary diuresis, continue to replace potassium Additional Plan Marcial considering hospice as an option for his mom Subjective Date/time seen: 07/22/20 14:11 Interval history: Pt is still SOB today admitted with history of atrial fibrillation on Eliquis. The patient has pulmonary hypertension and is on oxygen at 3 and half to 4 L. the patient is tested for covid 19 which was negative. Pt is being treated for CHF excerbation, epistaxis and AF. Pt is currently on 4 liters of oxygen with CPAP at night, heart rate and resp rate are both high. Pt seen by cardiology, family considering hospice. Cxr ordered for melisa AM. Review of Systems Review of Systems: All systems reviewed & are unremarkable except as noted in HPI and below Exam Narrative: Exam Narrative: - GENERAL: Pleasant woman on 4 liters SOB, elderly chronically ill appearing - HENT: Moist mucous membranes. - LUNGS: Diminished lung sounds BL - CARDIOVASCULAR: Irregularly irregular. tachycardia - ABDOMEN: Soft, non-tender and non-distended. - EXTREMITIES: 1+ pitting edema, decreasing edema. Peripheral pulses 2+. - NEUROLOGIC: No focal neurological deficits. CN II-XII grossly intact. - PSYCHIATRIC: Awake, Alert and oriented x 3. Appropriate mood and affect. Objective Data Vital Signs Vital Signs: Vital Signs - 24 hr 07/21/20 16:00 07/21/20 16:55 07/21/20 18:00 Temperature 36.4 C L Pulse Rate 114 H 101 H Respiratory Rate 16 Blood Pressure 102/68 Pulse Oximetry 97 07/21/20 20:00 07/21/20 21:06 07/21/20 23:10 Temperature 36.6 C Pulse Rate 97 102 H 68 Respiratory Rate 22 H 24 H Blood Pressure 94/49 L Pulse Oximetry 97 94 07/22/20 00:00 07/22
[2020-07-22 19:16] LABS: SARS-CoV-2 RNA PCR Negative
[2020-07-23] VITALS (19 sets, daily range): BP systolic 99–115; BP diastolic 59–95; PULSE 81–115; RESP 17–26; TEMP 36.1–36.8; O2SAT 90–100; BMI 40.1
[2020-07-23 05:43] LABS: Hematocrit 41.6 % (37.0-47.0); Hemoglobin 13.7 g/dL (12.0-15.0); Mean Corpuscular HGB Conc 32.9 g/dl (32-36); Mean Corpuscular Hemoglobin 28.5 pg (26-34); Mean Corpuscular Volume 86.7 fl (80-100); Mean Platelet Volume 10.3 fl (7.4-10.4); Platelet Count Result 204 k/mm3 (150-375); Red Cell Distribution Width 14.9 % (11.5-14.5); White Blood Count 6.9 K/mm3 (4.5-10.0)
[2020-07-23 06:00] LABS: Blood Urea Nitrogen 43 mg/dL (7-17); Calcium 9.1 mg/dL (8.4-10.2); Carbon Dioxide > 40 mmol/L (22-30); Chloride 84 mmol/L (98-107); Estimated CRCL calculation 31 ml/min; Estimated Glomerular Filt Rate 36; Glucose 101 mg/dL (65-105); Potassium 3.4 mmol/L (3.4-5.0); Sodium 132 mmol/L (137-145)
[2020-07-23] MEDS: METOPROLOL TARTRATE TAB 25 MG, METOPROLOL TARTRATE TAB 50 MG 75 MG PO ×3 (06:02→22:15)
[2020-07-23] MEDS: POTASSIUM CHLORIDE 10 MEQ TABLET.ER 20 MEQ PO ×2 (09:01→17:29)
[2020-07-23] MEDS: PANTOPRAZOLE SOD SESQUIHYDRATE 20 MG TAB PO (09:01)
[2020-07-23] MEDS: polyethylene glycoL 3350 17 GM POWD.PACK PO (09:02)
[2020-07-23] MEDS: FOLIC ACID 1 MG TABLET PO (09:02)
[2020-07-23] MEDS: BUMETANIDE 1 MG TABLET 2 MG PO ×2 (09:02→17:28)
[2020-07-23] MEDS: FAMOTIDINE 20 MG TABLET 40 MG PO (09:02)
[2020-07-23] MEDS: APIXABAN 5 MG TABLET PO ×2 (09:02→17:29)
[2020-07-23] MEDS: ATORVASTATIN 40 MG TABLET PO (09:02)
[2020-07-23] MEDS: TOLNAFTATE 1% POWDER 45 GM BTL 1 APPLIC TOPICAL ×2 (09:03→22:16)
--- NOTE | 2020-07-23 12:55 | PM.IMPN ---
Progress Note: A&P Assessment and Plan (1) Acute exacerbation of congestive heart failure: Qualifiers: Heart failure type: unspecified Qualified Code(s): I50.9 - Heart failure, unspecified Code(s): I50.9 - Heart failure, unspecified Status: Chronic Assessment and Plan: -Patient has had multiple readmissions for the same issue over the past couple years exacerbation of her diastolic heart failure -chronically on 3-4 L home oxygen therapy, currently on 4 L O2 -patient is DNR and is agreeable to BiPAP as needed -Pt is on oral bumex and oral metolazone -Patient to work with physical therapy -Cardiology rounding pt is on metoprolol for AF -EF is EF 65-70%, indeterminate diastolic dysfunction (2) Acute and chronic respiratory failure: Qualifiers: Respiratory failure complication: hypoxia and hypercapnia Qualified Code(s): J96.21 - Acute and chronic respiratory failure with hypoxia; J96.22 - Acute and chronic respiratory failure with hypercapnia Code(s): J96.20 - Acute and chronic respiratory failure, unspecified whether with hypoxia or hypercapnia Status: Acute Assessment and Plan: Supportive care keep oxygen saturation greater 90%, on 4 L Continue slow diuresis (3) Epistaxis: Code(s): R04.0 - Epistaxis Status: Acute Assessment and Plan: Resolved (4) Atrial fibrillation: Onset Date: ~03/2019 Qualifiers: Atrial fibrillation type: permanent Qualified Code(s): I48.21 - Permanent atrial fibrillation Code(s): I48.91 - Unspecified atrial fibrillation Status: Acute Assessment and Plan: -Eliquis for her anticoagulation -Changed to metoprolol by cardiology (5) Mixed hyperlipidemia: Code(s): E78.2 - Mixed hyperlipidemia Status: Chronic Assessment and Plan: Continue statin (6) Essential (primary) hypertension: Code(s): I10 - Essential (primary) hypertension Status: Chronic Assessment and Plan: Stable (7) Hypokalemia: Code(s): E87.6 - Hypokalemia Status: Resolved Assessment and Plan: Secondary diuresis, continue to replace potassium as needed Additional Plan Subjective Date/time seen: 07/23/20 12:55 Interval history: Pt is still SOB today admitted with history of atrial fibrillation on Eliquis. The patient has pulmonary hypertension and is on oxygen at 3 and half to 4 L. the patient is tested for covid 19 which was negative. Pt is being treated for CHF excerbation, epistaxis and AF. Pt is currently on 4 liters of oxygen with CPAP at night, heart rate and resp rate are both high. Cxr today shows cardiomegaly and pulmonary edema. Family do not want hospice anymore. Continue current treatment. Review of Systems Review of Systems: All systems reviewed & are unremarkable except as noted in HPI and below Exam Narrative: Exam Narrative: - GENERAL: Pleasant woman on 4 liters SOB, elderly chronically ill appearing - HENT: Moist mucous membranes. - LUNGS: Diminished lung sounds BL - CARDIOVASCULAR: Irregularly irregular. tachycardia - ABDOMEN: Soft, non-tender and non-distended. - EXTREMITIES:No edema. Peripheral pulses 2+. - NEUROLOGIC: No focal neurological deficits. CN II-XII grossly intact. - PSYCHIATRIC: Awake, Alert and oriented x 3. Appropriate mood and affect. Objective Data Vital Signs Vital Signs: Vital Signs - 24 hr 07/22/20 13:24 07/22/20 14:26 07/22/20 16:00 Temperature 36.3 C L Pulse Rate 88 86 93 Respiratory Rate 20 Blood Pressure 91/55 L Pulse Oximetry 99 07/22/20 18:00 07/22/20 20:00 07/22/20 21:00 Temperature 36.3 C L Pulse Rate 90 97 Respiratory Rate 22 H Blood Pressure 111/69 Pulse Oximetry 91 94 07/22/20 21:24 07/22/20 22:00 07/22/20 22:35 Temperature 36.2 C L Pulse Rate 98 98 92 Respiratory Rate 22 H Blood Pressure 117/70 Pulse Oximetry 94 89 L 07/22/20 22:3
--- NOTE | 2020-07-23 14:35 | PM.PNCARD ---
Progress Note: A&P Assessment and Plan (1) Acute on chronic diastolic CHF (congestive heart failure): Code(s): I50.33 - Acute on chronic diastolic (congestive) heart failure Status: Acute Assessment and Plan: Cont bumetanide 2 mg b.i.d. Chest x-ray largely unchanged. CHF with underlying ILD suspected. Needs better rate control as tolerated. BP and renal function complicate management. Digoxin option given low BP at times but concern given advanced age and renal insufficiency. Will try Digoxin 0.125mg today likely tomorrow then every other day. Need electrolytes stable. monitor renal function. Persistent hypokalemia now resolving. Monitor potassium while in hospital and check 1 week after discharge. (2) Atrial fibrillation: Onset Date: ~03/2019 Qualifiers: Atrial fibrillation type: permanent Qualified Code(s): I48.21 - Permanent atrial fibrillation Code(s): I48.91 - Unspecified atrial fibrillation Status: Acute Assessment and Plan: Heart rate quite rapid with any activity and she is symptomatic. As above. Metoprolol, add Digoxin given intermittent low BP. Anticoagulated with Eliquis. (3) Epistaxis: Code(s): R04.0 - Epistaxis Status: Acute Assessment and Plan: Resolved. (4) Pulmonary hypertension: Code(s): I27.20 - Pulmonary hypertension, unspecified Status: Acute Assessment and Plan: Has severe pulmonary hypertension, related to her chronic diastolic heart failure and chronic lung disease. (5) Respiratory failure: Qualifiers: Chronicity: acute on chronic Respiratory failure complication: unspecified whether with hypoxia or hypercapnia Qualified Code(s): J96.20 - Acute and chronic respiratory failure, unspecified whether with hypoxia or hypercapnia Code(s): J96.90 - Respiratory failure, unspecified, unspecified whether with hypoxia or hypercapnia Status: Acute Assessment and Plan: Chronic lung disease is followed by Dr. Martel. On home O2 and CPAP at home. Subjective Date/time seen: Date of Service: 07/23/20 14:35 Interval history: Follow-up for: chronic diastolic heart failure. She came to the hospital primarily because of epistaxis which has been resolved. Atrial fibrillation with rapid ventricular response Subjective: Short of breath with exertional activities and conversation, HR elevated to 140's with any activity with symptomatic rapid palpitations. Feels tired, weak. Denied any pain. No lightheadedness. HR generally 100's at rest. Review of Systems Constitutional: Constitutional: Reports fatigue and Reports weakness Eyes: Eyes: Denies blurry vision ENT: Denies dizziness, Reports hearing loss, Denies lip swelling, Denies epistaxis, Denies nasal congestion and Denies throat swelling Cardiovascular: Cardiovascular: Reports as per HPI, Denies chest pain, Reports pedal edema, Denies leg edema, Denies lightheadedness, Reports palpitations (Has not noted today.), Reports dyspnea and Reports dyspnea on exertion Respiratory: Respiratory: Denies chest congestion, Denies cough, Reports dyspnea, Reports dyspnea on exertion and Denies wheezing Gastrointestinal: Gastrointestinal: Denies abdominal pain Genitourinary: Genitourinary: Denies hematuria Musculoskeletal: Musculoskeletal: Denies back pain Integumentary/Breasts: Skin/Breast: Reports system reviewed and no additional complaints, except as docu and Denies rash Neurologic: Denies confusion, Denies dizziness and Reports weakness Psychiatric: Psychiatric: Denies anxiety, Denies confusion and Denies depression Endocrine: Endocrine: Reports fatigue and Reports palpitations (Has not noted today.) Hematologic/Lymphatic: Hematologic/Lymphatic: Antonio
[2020-07-23] MEDS: DIGOXIN TAB 125 MCG TABLET PO (17:26)
[2020-07-24] VITALS (16 sets, daily range): BP systolic 96–114; BP diastolic 51–67; PULSE 65–90; RESP 16–26; TEMP 35.9–36.7; O2SAT 91–96
[2020-07-24] MEDS: METOPROLOL TARTRATE TAB 25 MG, METOPROLOL TARTRATE TAB 50 MG 75 MG PO ×2 (07:15→13:43)
[2020-07-24] MEDS: PANTOPRAZOLE SOD SESQUIHYDRATE 20 MG TAB PO (09:08)
[2020-07-24] MEDS: POTASSIUM CHLORIDE 10 MEQ TABLET.ER 20 MEQ PO ×2 (09:08→17:15)
[2020-07-24] MEDS: DIGOXIN TAB 125 MCG TABLET PO (09:09)
[2020-07-24] MEDS: ATORVASTATIN 40 MG TABLET PO (09:09)
[2020-07-24] MEDS: FAMOTIDINE 20 MG TABLET 40 MG PO (09:09)
[2020-07-24] MEDS: FOLIC ACID 1 MG TABLET PO (09:09)
[2020-07-24] MEDS: BUMETANIDE 1 MG TABLET 2 MG PO ×2 (09:10→17:16)
[2020-07-24] MEDS: APIXABAN 5 MG TABLET PO ×2 (09:10→17:15)
[2020-07-24] MEDS: TOLNAFTATE 1% POWDER 45 GM BTL 1 APPLIC TOPICAL ×2 (09:10→21:30)
--- NOTE | 2020-07-24 12:33 | PM.IMPN ---
Progress Note: A&P Assessment and Plan (1) Acute exacerbation of congestive heart failure: Qualifiers: Heart failure type: unspecified Qualified Code(s): I50.9 - Heart failure, unspecified Code(s): I50.9 - Heart failure, unspecified Status: Chronic Assessment and Plan: -Patient has had multiple readmissions for the same issue over the past couple years exacerbation of her diastolic heart failure -chronically on 3-4 L home oxygen therapy, currently on 5 L O2 -patient is DNR and is agreeable to BiPAP as needed -Pt is on oral bumex and oral metolazone -Patient to work with physical therapy -Cardiology rounding pt is on metoprolol for AF -EF is EF 65-70%, indeterminate diastolic dysfunction Recent cxr did not show much improvement, despite diuretics Family would like to speak to pulmonology before deciding on hospice. (2) Acute and chronic respiratory failure: Qualifiers: Respiratory failure complication: hypoxia and hypercapnia Qualified Code(s): J96.21 - Acute and chronic respiratory failure with hypoxia; J96.22 - Acute and chronic respiratory failure with hypercapnia Code(s): J96.20 - Acute and chronic respiratory failure, unspecified whether with hypoxia or hypercapnia Status: Acute Assessment and Plan: Supportive care keep oxygen saturation greater 90%, on 4 L Continue slow diuresis (3) Epistaxis: Code(s): R04.0 - Epistaxis Status: Acute Assessment and Plan: Resolved (4) Atrial fibrillation: Onset Date: ~03/2019 Qualifiers: Atrial fibrillation type: permanent Qualified Code(s): I48.21 - Permanent atrial fibrillation Code(s): I48.91 - Unspecified atrial fibrillation Status: Acute Assessment and Plan: -Eliquis for her anticoagulation -Changed to metoprolol by cardiology (5) Mixed hyperlipidemia: Code(s): E78.2 - Mixed hyperlipidemia Status: Chronic Assessment and Plan: Continue statin (6) Essential (primary) hypertension: Code(s): I10 - Essential (primary) hypertension Status: Chronic Assessment and Plan: Stable (7) Hypokalemia: Code(s): E87.6 - Hypokalemia Status: Resolved Assessment and Plan: Secondary diuresis, continue to replace potassium as needed, potassium is 3.4 Additional Plan Subjective Date/time seen: 07/24/20 12:33 Interval history: Pt is still SOB today admitted with history of atrial fibrillation on Eliquis. The patient has pulmonary hypertension and is on oxygen at 3 and half to 4 L. the patient is tested for covid 19 which was negative. Pt is being treated for CHF excerbation, epistaxis and AF. Pt is currently on 5 liters of oxygen with CPAP at night, RR is high. Cxr today shows cardiomegaly and pulmonary edema, unchanged to admission, CXR. Pt is not improving despite diuresis. Omayraley a candidate for hospice. Family would like to speak to pulmonology before deciding on hospice. Review of Systems Review of Systems: All systems reviewed & are unremarkable except as noted in HPI and below Exam Narrative: Exam Narrative: - GENERAL: Pleasant woman on 5 liters SOB, elderly chronically ill appearing - HENT: Moist mucous membranes. - LUNGS: Diminished lung sounds BL, with fine crackles - CARDIOVASCULAR: Irregularly irregular. tachycardia - ABDOMEN: Soft, non-tender and non-distended. - EXTREMITIES:No edema. Peripheral pulses 2+. - NEUROLOGIC: No focal neurological deficits. CN II-XII grossly intact. - PSYCHIATRIC: Awake, Alert and oriented x 3. Appropriate mood and affect. Objective Data Vital Signs Vital Signs: Vital Signs - 24 hr 07/23/20 14:00 07/23/20 14:37 07/23/20 16:00 Temperature 36.2 C L Pulse Rate 88 91 90 Respiratory Rate 20 Blood Pressure 99/66 L Pulse Oximetry 100 07/23/20 17:26 07/23/20 18:00 07/23/20 19:34 Temperature 36.8 C Pulse Rate 103 H 115 H Respira
--- NOTE | 2020-07-24 15:42 | PM.PNCARD ---
Progress Note: A&P Assessment and Plan (1) Acute on chronic diastolic CHF (congestive heart failure): Code(s): I50.33 - Acute on chronic diastolic (congestive) heart failure Status: Acute Assessment and Plan: Cont bumetanide 2 mg b.i.d. Chest x-ray largely unchanged. CHF with underlying ILD suspected. Heart rate better controlled, patient feels better. Need to check BMP, magnesium particularly on digoxin. Monitor potassium while in hospital and check 1 week after discharge. (2) Atrial fibrillation: Onset Date: ~03/2019 Qualifiers: Atrial fibrillation type: permanent Qualified Code(s): I48.21 - Permanent atrial fibrillation Code(s): I48.91 - Unspecified atrial fibrillation Status: Acute Assessment and Plan: Heart rate better on digoxin thus far. Change metoprolol tartrate to 100 mg twice daily. Anticoagulated with Eliquis. (3) Epistaxis: Code(s): R04.0 - Epistaxis Status: Acute Assessment and Plan: Resolved. (4) Pulmonary hypertension: Code(s): I27.20 - Pulmonary hypertension, unspecified Status: Acute Assessment and Plan: Has severe pulmonary hypertension, related to her chronic diastolic heart failure and chronic lung disease. (5) Respiratory failure: Qualifiers: Chronicity: acute on chronic Respiratory failure complication: unspecified whether with hypoxia or hypercapnia Qualified Code(s): J96.20 - Acute and chronic respiratory failure, unspecified whether with hypoxia or hypercapnia Code(s): J96.90 - Respiratory failure, unspecified, unspecified whether with hypoxia or hypercapnia Status: Acute Assessment and Plan: Chronic lung disease is followed by Dr. Martel. Pulmonology involvement appreciated. Consultation pending. On home O2 and CPAP at home. Subjective Date/time seen: Date of Service: 07/24/20 15:42 Interval history: Follow-up for: chronic diastolic heart failure. She came to the hospital primarily because of epistaxis which has been resolved. Atrial fibrillation with rapid ventricular response Patient says he feels better today. Breathing is easier, does not note palpitations at this time. No chest pain. No new issues overnight. Review of Systems Constitutional: Constitutional: Reports fatigue and Reports weakness Eyes: Eyes: Denies blurry vision ENT: Denies dizziness, Reports hearing loss, Denies lip swelling, Denies epistaxis, Denies nasal congestion and Denies throat swelling Cardiovascular: Cardiovascular: Reports as per HPI, Denies chest pain, Reports pedal edema, Denies leg edema, Denies lightheadedness, Reports palpitations (Has not noted today.), Reports dyspnea and Reports dyspnea on exertion Respiratory: Respiratory: Denies chest congestion, Denies cough, Reports dyspnea, Reports dyspnea on exertion and Denies wheezing Gastrointestinal: Gastrointestinal: Denies abdominal pain Genitourinary: Genitourinary: Denies hematuria Musculoskeletal: Musculoskeletal: Denies back pain Integumentary/Breasts: Skin/Breast: Reports system reviewed and no additional complaints, except as docu and Denies rash Neurologic: Denies confusion, Denies dizziness and Reports weakness Psychiatric: Psychiatric: Denies anxiety, Denies confusion and Denies depression Endocrine: Endocrine: Reports fatigue and Reports palpitations (Has not noted today.) Hematologic/Lymphatic: Hematologic/Lymphatic: Denies easy bleeding and Reports easy bruising Allergic/Immunologic: Allergic/Immunologic: Denies lip swelling, Denies throat swelling and Denies wheezing Exam Narrative: Exam Narrative: Elderly female sitting up in chair. Appears more comfortable, less dyspneic Const: General: cooperativ
[2020-07-24 16:47] LABS: Blood Urea Nitrogen 47 mg/dL (7-17); Calcium 9.3 mg/dL (8.4-10.2); Carbon Dioxide > 40 mmol/L (22-30); Chloride 81 mmol/L (98-107); Estimated CRCL calculation 39 ml/min; Estimated Glomerular Filt Rate 48; Glucose 115 mg/dL (65-105); Magnesium 1.9 mg/dL (1.6-2.3); Potassium 3.2 mmol/L (3.4-5.0); Sodium 134 mmol/L (137-145)
[2020-07-25] VITALS (14 sets, daily range): BP systolic 97–127; BP diastolic 53–72; PULSE 69–98; RESP 16–28; TEMP 36.3–36.7; O2SAT 94–100
[2020-07-25 06:01] LABS: Blood Urea Nitrogen 39 mg/dL (7-17); Calcium 9.1 mg/dL (8.4-10.2); Carbon Dioxide > 40 mmol/L (22-30); Chloride 80 mmol/L (98-107); Estimated CRCL calculation 33 ml/min; Estimated Glomerular Filt Rate 39; Glucose 88 mg/dL (65-105); Potassium 2.2 mmol/L (3.4-5.0); Sodium 135 mmol/L (137-145)
--- NOTE | 2020-07-25 08:24 | PC.NURSE ---
K-rider paused to go to CT
[2020-07-25] MEDS: ATORVASTATIN 40 MG TABLET PO (09:18)
[2020-07-25] MEDS: PANTOPRAZOLE SOD SESQUIHYDRATE 20 MG TAB PO (09:18)
[2020-07-25] MEDS: METOPROLOL TARTRATE 50 MG TAB 100 MG PO ×2 (09:19→22:01)
[2020-07-25] MEDS: metOLazone 2.5 MG TABLET PO (09:19)
[2020-07-25] MEDS: BUMETANIDE 1 MG TABLET 2 MG PO ×2 (09:19→17:56)
[2020-07-25] MEDS: FOLIC ACID 1 MG TABLET PO (09:19)
[2020-07-25] MEDS: FAMOTIDINE 20 MG TABLET 40 MG PO (09:19)
[2020-07-25] MEDS: POTASSIUM CHLORIDE 10 MEQ TABLET.ER 20 MEQ PO (09:20)
[2020-07-25] MEDS: TOLNAFTATE 1% POWDER 45 GM BTL 1 APPLIC TOPICAL ×2 (09:21→22:02)
[2020-07-25] MEDS: polyethylene glycoL 3350 17 GM POWD.PACK PO (09:24)
--- NOTE | 2020-07-25 09:32 | PC.NURSE ---
K rider resumed, rate slowed for pt comfort
--- NOTE | 2020-07-25 10:48 | ECG_ITS ---
Measurements Intervals [place] Rate: 83 P: CO: 0 QRS: 126 QRSD: 80 T: -13 QT: 368 QTc: 433 Interpretive Statements ATRIAL FIBRILLATION RIGHT AXIS DEVIATION CANNOT RULE OUT SEPTAL INFARCT, AGE INDETERMINATE LOW VOLTAGE- PRECORDIAL LEADS BORDERLINE ST-T WAVE ABNORMALITY- INFERIOR LEADS BASELINE ARTIFACT- I, II, AVR, V1-V6 ABNORMAL ECG Electronically Signed On 07-25-2020 12:05:50 [employer] by Oscar Pulido D.O.
--- NOTE | 2020-07-25 11:07 | PM.IMPN ---
Progress Note: A&P Assessment and Plan (1) Acute exacerbation of congestive heart failure: Qualifiers: Heart failure type: unspecified Qualified Code(s): I50.9 - Heart failure, unspecified Code(s): I50.9 - Heart failure, unspecified Status: Chronic Assessment and Plan: -Patient has had multiple readmissions for the same issue over the past couple years exacerbation of her diastolic heart failure -chronically on 3-4 L home oxygen therapy, currently on 5 L O2 -patient is DNR and is agreeable to BiPAP as needed -Pt is on oral bumex and oral metolazone -Patient to work with physical therapy -Cardiology rounding pt is on metoprolol for AF -EF is EF 65-70%, indeterminate diastolic dysfunction Pt had ct chest pt is going for thoracentesis today under pulmonology for R moderate pleural effusion. (2) Acute and chronic respiratory failure: Qualifiers: Respiratory failure complication: hypoxia and hypercapnia Qualified Code(s): J96.21 - Acute and chronic respiratory failure with hypoxia; J96.22 - Acute and chronic respiratory failure with hypercapnia Code(s): J96.20 - Acute and chronic respiratory failure, unspecified whether with hypoxia or hypercapnia Status: Acute Assessment and Plan: Supportive care keep oxygen saturation greater 90%, on 4 L Continue slow diuresis + thoracentesis (3) Epistaxis: Code(s): R04.0 - Epistaxis Status: Acute Assessment and Plan: Resolved (4) Atrial fibrillation: Onset Date: ~03/2019 Qualifiers: Atrial fibrillation type: permanent Qualified Code(s): I48.21 - Permanent atrial fibrillation Code(s): I48.91 - Unspecified atrial fibrillation Status: Acute Assessment and Plan: -Eliquis for her anticoagulation -Changed to metoprolol by cardiology (5) Mixed hyperlipidemia: Code(s): E78.2 - Mixed hyperlipidemia Status: Chronic Assessment and Plan: Continue statin (6) Essential (primary) hypertension: Code(s): I10 - Essential (primary) hypertension Status: Chronic Assessment and Plan: Stable (7) Hypokalemia: Code(s): E87.6 - Hypokalemia Status: Resolved Assessment and Plan: Secondary diuresis, continue to replace potassium as needed, potassium is 2.2, very low today!! pt had KCL infusion now on potassium BID recheck K at 1400. Additional Plan Subjective Date/time seen: 07/25/20 11:07 Interval history: Pt is still SOB today admitted with history of atrial fibrillation on Eliquis. The patient has pulmonary hypertension and is on oxygen at 3 and half to 4 L. the patient is tested for covid 19 which was negative. Pt is being treated for CHF excerbation, epistaxis and AF. Pt is currently on 5 liters of oxygen with BIPAP at night. Cxr today shows cardiomegaly and pulmonary edema, unchanged to admission, CXR. Pt is not improving despite diuresis. Pt is going for thoracentesis today under pulmology. Pt potassium is dangerously low continue to correct and monitor. Ysabel as pt is on digoxin. Review of Systems Review of Systems: All systems reviewed & are unremarkable except as noted in HPI and below Exam Narrative: Exam Narrative: - GENERAL: Pleasant woman on 5 liters SOB, elderly chronically ill appearing - HENT: Moist mucous membranes. - LUNGS: Diminished lung sounds BL, with fine crackles, decreased BS on R side - CARDIOVASCULAR: RRR - ABDOMEN: Soft, non-tender and non-distended. - EXTREMITIES:No edema. Peripheral pulses 2+. - NEUROLOGIC: No focal neurological deficits. CN II-XII grossly intact. - PSYCHIATRIC: Awake, Alert and oriented x 3. Appropriate mood and affect. Objective Data Vital Signs Vital Signs: Vital Signs - 24 hr 07/24/20 12:00 07/24/20 13:43 07/24/20 16:00 Temperature 35.9 C L 36.4 C Pulse Rate 79 88 78 Respiratory Rate 24 H 22 H Blood Pressure 114/67 112/51 L Pulse Oximetry 93 96
--- NOTE | 2020-07-25 13:40 | PM.CNPUL ---
Assessment and Plan Assessment and plan (1) Acute on chronic diastolic CHF (congestive heart failure): Code(s): I50.33 - Acute on chronic diastolic (congestive) heart failure Status: Acute (2) Pulmonary hypertension assoc with unclear multi-factorial mechanisms: Code(s): I27.29 - Other secondary pulmonary hypertension Status: Acute Assessment and Plan: Likely multifactorial and due to left sided heart disease, chronic hypoxemia and TASH. I don't see any significant ILD although it's difficult see with the background of pleural effusions and pulmonary edema. She did have restrictive ventilatory defect on PFT last year but this could also be explained by decompensated heart failure. (3) Pleural effusion: Code(s): J90 - Pleural effusion, not elsewhere classified Status: Acute Assessment and Plan: Right pleural effusion appears moderate to large. - will hold Eliquis and order large volume + diagnostic thoracentesis - Eliquis can be resumed right after the procedures History of Present Illness History of Present Illness Consult date: 07/25/20 Chief complaint: Acute hypercapnic/respiratory failure/acute CHF ex Narrative: 79 y/o female with multiple comorbidities including TASH, chronic hypoxemia on home oxygen, severe pulmonary hypertension ( likely group 5), Afib who presented with nose bleeds on Eliquis but was admitted with CHF exacerbation with bilateral pleural effusions. CT chest showed upper lobe ground glass infiltrates which may be due to pulmonary edema especially in the setting of bilateral pleural effusions. She is short of breath at home but nothing more than baseline although she's very sedentary. She denies cough or sputum production, fever, chills or night sweats She is faithful with wearing oxygen during the day and at night with nasal CPAP therapy. Review of Systems Review of Systems: All systems reviewed & are unremarkable except as noted in HPI and below PMFSH Past Medical History Medical History (Updated 07/25/20 @ 13:50 by Adryan Prince MD) Abnormal colonoscopy And control hemorrhoids diverticulosis Adjustment disorder with anxious mood Age-related osteoporosis without current pathological fracture Anemia Atrial fibrillation (~03/2019) Breast cancer Left lumpectomy with radiation therapy. Cataracts, bilateral Chronic congestive heart failure with left ventricular diastolic dysfunction Congestive heart failure, unspecified CPAP (continuous positive airway pressure) dependence Diverticulitis Endometriosis Essential (primary) hypertension Fracture of left femur following insertion of orthopedic implant Gastro-esophageal reflux disease with esophagitis History of breast cancer Kidney stone Mitral valve prolapse Mixed hyperlipidemia Nonrheumatic mitral (valve) insufficiency Obstructive sleep apnea (adult) (pediatric) Osteoporosis Pulmonary hypertension Respiratory failure Sleep apnea Supraventricular tachycardia Unspecified diastolic (congestive) heart failure UTI (urinary tract infection) Surgical History Surgical History (Updated 07/16/20 @ 20:07 by Tamiko Fuller NP) H/O cardiac catheterization To does 15 demonstrated normal coronary arteries. History of lumpectomy of left breast S/P lumpectomy, left breast Family History Family History Mother Hypertension Diabetes mellitus Family history of osteoporosis Acute myocardial infarction Sibling Family history of malignant neoplasm of esophagus Colon polyp Father Family history of glaucoma Hypertension Family history of rheumatoid arthritis Other Family history of cardiovascular disease Family history of heart disease in male family member before age 55 Family history of hypercholesterolemia Family history of malignant neoplasm Family history of malignant neoplasm of breast Social History Social History (Updated
[2020-07-25 14:40] LABS: Blood Urea Nitrogen 41 mg/dL (7-17); Calcium 9.6 mg/dL (8.4-10.2); Carbon Dioxide > 40 mmol/L (22-30); Chloride 78 mmol/L (98-107); Estimated CRCL calculation 36 ml/min; Estimated Glomerular Filt Rate 43; Glucose 110 mg/dL (65-105); Potassium 3.2 mmol/L (3.4-5.0); Sodium 135 mmol/L (137-145)
--- NOTE | 2020-07-25 14:50 | PM.PNCARD ---
Progress Note: A&P Assessment and Plan (1) Acute on chronic diastolic CHF (congestive heart failure): Code(s): I50.33 - Acute on chronic diastolic (congestive) heart failure Status: Acute Assessment and Plan: Cont bumetanide 2 mg b.i.d. Must watch potassium very closely. Increase to 40 mEq p.o. b.i.d.. Thoracentesis planned for right pleural effusion. Chest x-ray largely unchanged. CHF with underlying ILD suspected. Heart rate better controlled, patient feels better. Need to check BMP, magnesium particularly on digoxin. Monitor potassium while in hospital and check 1 week after discharge. (2) Atrial fibrillation: Onset Date: ~03/2019 Qualifiers: Atrial fibrillation type: permanent Qualified Code(s): I48.21 - Permanent atrial fibrillation Code(s): I48.91 - Unspecified atrial fibrillation Status: Acute Assessment and Plan: Heart rate better on digoxin thus far. Change metoprolol tartrate to 100 mg twice daily. Check digoxin level. Must maintain an appropriate electrolyte balance. Anticoagulated with Eliquis. (3) Epistaxis: Code(s): R04.0 - Epistaxis Status: Acute Assessment and Plan: Resolved. (4) Pulmonary hypertension: Code(s): I27.20 - Pulmonary hypertension, unspecified Status: Acute Assessment and Plan: Has severe pulmonary hypertension, related to her chronic diastolic heart failure and chronic lung disease. (5) Respiratory failure: Qualifiers: Chronicity: acute on chronic Respiratory failure complication: unspecified whether with hypoxia or hypercapnia Qualified Code(s): J96.20 - Acute and chronic respiratory failure, unspecified whether with hypoxia or hypercapnia Code(s): J96.90 - Respiratory failure, unspecified, unspecified whether with hypoxia or hypercapnia Status: Acute Assessment and Plan: Chronic lung disease is followed by Dr. Martel. Pulmonology involvement appreciated. CT chest obtained. On home O2 and CPAP at home. Subjective Date/time seen: Date of service:07/25/20 14:50 Interval history: Follow-up for: chronic diastolic heart failure, Atrial fibrillation, respiratory failure. Patient says she feels better today. Breathing better, no palpitations, chest pain. CT chest obtained early this morning. Potassium very low 2.2. IV and oral supplementation has been ordered. Heart rate well controlled in atrial fibrillation currently in the 70s. Review of Systems Constitutional: Constitutional: Reports fatigue and Reports weakness Eyes: Eyes: Denies blurry vision ENT: Denies dizziness, Reports hearing loss, Denies lip swelling, Denies epistaxis, Denies nasal congestion and Denies throat swelling Cardiovascular: Cardiovascular: Reports as per HPI, Denies chest pain, Reports pedal edema, Denies leg edema, Denies lightheadedness, Reports palpitations (Has not noted today.), Reports dyspnea and Reports dyspnea on exertion Respiratory: Respiratory: Denies chest congestion, Denies cough, Reports dyspnea, Reports dyspnea on exertion and Denies wheezing Gastrointestinal: Gastrointestinal: Denies abdominal pain Genitourinary: Genitourinary: Denies hematuria Musculoskeletal: Musculoskeletal: Denies back pain Integumentary/Breasts: Skin/Breast: Reports system reviewed and no additional complaints, except as docu and Denies rash Neurologic: Denies confusion, Denies dizziness and Reports weakness Psychiatric: Psychiatric: Denies anxiety, Denies confusion and Denies depression Endocrine: Endocrine: Reports fatigue and Reports palpitations (Has not noted today.) Hematologic/Lymphatic: Hematologic/Lymphatic: Denies easy bleeding and Reports easy bruising Allergic/Immunologic:
--- NOTE | 2020-07-25 14:55 | PC.NURSE ---
pt to US for thoracentesis via stretcher
[2020-07-25 16:00] LABS: pH Pleural Fluid 7.465 (7.210-7.500)
--- NOTE | 2020-07-25 16:05 | PC.NURSE ---
pt returned from US, up in chair at bedside, doing well
--- NOTE | 2020-07-25 16:06 | PC.NURSE ---
potassium lab rescheduled due to pt being off floor
[2020-07-25 17:01] LABS: Pleural fluid source Pleural fluid
[2020-07-25 17:02] LABS: Appearance Pleural Fluid Turbid (Clear); Color Pleural Fluid Red (Colorless); Lymphocytes Pleural Fluid 72 %; Nucleated Cell Pleural Fluid 2068 /uL (0-1000)
[2020-07-25 17:03] LABS: Monocytes Pleural Fluid 13 %; Neutrophils Pleural Fluid 4 % (0-25)
[2020-07-25 17:04] LABS: Macrophages Pleural Fluid 7 %; Mesothelial Cells Pleural Flui 4 %
[2020-07-25] MEDS: POTASSIUM CHLORIDE 20 MEQ TABLET.ER 40 MEQ PO ×2 (17:55→22:01)
[2020-07-25 21:05] LABS: Potassium 2.8 mmol/L (3.4-5.0)
[2020-07-26] VITALS (12 sets, daily range): BP systolic 92–99; BP diastolic 50–58; PULSE 74–100; RESP 16–20; TEMP 36.1–36.3; O2SAT 95–100
[2020-07-26] MEDS: polyethylene glycoL 3350 17 GM POWD.PACK PO (08:40)
[2020-07-26] MEDS: BUMETANIDE 1 MG TABLET 2 MG PO (08:40)
[2020-07-26] MEDS: FAMOTIDINE 20 MG TABLET 40 MG PO (08:40)
[2020-07-26] MEDS: DIGOXIN TAB 125 MCG TABLET PO (08:41)
[2020-07-26] MEDS: METOPROLOL TARTRATE 50 MG TAB 100 MG PO ×2 (08:41→20:50)
[2020-07-26] MEDS: PANTOPRAZOLE SOD SESQUIHYDRATE 20 MG TAB PO (08:41)
[2020-07-26] MEDS: FOLIC ACID 1 MG TABLET PO (08:41)
[2020-07-26] MEDS: ATORVASTATIN 40 MG TABLET PO (08:41)
[2020-07-26] MEDS: POTASSIUM CHLORIDE 20 MEQ TABLET.ER 40 MEQ PO ×3 (08:42→17:56)
[2020-07-26] MEDS: TOLNAFTATE 1% POWDER 45 GM BTL 1 APPLIC TOPICAL ×2 (08:48→20:51)
[2020-07-26] MEDS: KCL 40 MEQ/D5/0.9% SOD CHL 1,000 ML 100 ML IV CONT (10:21)
[2020-07-26] MEDS: ACETAMINOPHEN 325 MG TABLET 650 MG PO (10:25)
--- NOTE | 2020-07-26 11:55 | PM.IMPN ---
Progress Note: A&P Assessment and Plan (1) Acute exacerbation of congestive heart failure: Qualifiers: Heart failure type: unspecified Qualified Code(s): I50.9 - Heart failure, unspecified Code(s): I50.9 - Heart failure, unspecified Status: Chronic Assessment and Plan: -Patient has had multiple readmissions for the same issue over the past couple years exacerbation of her diastolic heart failure -chronically on 3-4 L home oxygen therapy, currently on 5 L O2, hopeful Dc when pt is back to her baseline -patient is DNR and is agreeable to BiPAP as needed -Pt is on oral bumex and oral metolazone -Patient to work with physical therapy -Cardiology rounding pt is on metoprolol for AF -EF is EF 65-70%, indeterminate diastolic dysfunction Pt had ct chest pt is breathing little better today after thoracentesis yesterday (2) Acute and chronic respiratory failure: Qualifiers: Respiratory failure complication: hypoxia and hypercapnia Qualified Code(s): J96.21 - Acute and chronic respiratory failure with hypoxia; J96.22 - Acute and chronic respiratory failure with hypercapnia Code(s): J96.20 - Acute and chronic respiratory failure, unspecified whether with hypoxia or hypercapnia Status: Acute Assessment and Plan: Supportive care keep oxygen saturation greater 90%, on 4 L Continue slow diuresis + thoracentesis (3) Epistaxis: Code(s): R04.0 - Epistaxis Status: Acute Assessment and Plan: Resolved (4) Atrial fibrillation: Onset Date: ~03/2019 Qualifiers: Atrial fibrillation type: permanent Qualified Code(s): I48.21 - Permanent atrial fibrillation Code(s): I48.91 - Unspecified atrial fibrillation Status: Acute Assessment and Plan: -Eliquis for her anticoagulation -Changed to metoprolol by cardiology (5) Mixed hyperlipidemia: Code(s): E78.2 - Mixed hyperlipidemia Status: Chronic Assessment and Plan: Continue statin (6) Essential (primary) hypertension: Code(s): I10 - Essential (primary) hypertension Status: Chronic Assessment and Plan: Stable (7) Hypokalemia: Code(s): E87.6 - Hypokalemia Status: Resolved Assessment and Plan: Secondary diuresis, continue to replace potassium as needed, potassium is 2.8, K rider and potassium supplement, reorder BMp in afternoon Subjective Date/time seen: 07/26/20 11:55 Interval history: Pt is still SOB today admitted with history of atrial fibrillation on Eliquis. The patient has pulmonary hypertension and is on oxygen at 3 and half to 4 L. the patient is tested for covid 19 which was negative. Pt is being treated for CHF excerbation, epistaxis and AF. Pt is currently on 5 liters of oxygen with BIPAP at night. Cxr today shows cardiomegaly and pulmonary edema, unchanged to admission, CXR. Pt had thoracentesis yesterday and is breathing little better. Potassium is low again today continue slow diuresis and hope for improvement. Review of Systems Review of Systems: All systems reviewed & are unremarkable except as noted in HPI and below Exam Narrative: Exam Narrative: - GENERAL: Pleasant woman on 5 liters SOB, elderly chronically ill appearing - LUNGS: Diminished lung sounds BL, with fine crackles, better air entry today - CARDIOVASCULAR: RRR - ABDOMEN: Soft, non-tender and non-distended. - EXTREMITIES:No edema. Peripheral pulses 2+. - NEUROLOGIC: No focal neurological deficits. CN II-XII grossly intact. - PSYCHIATRIC: Awake, Alert and oriented x 3. Appropriate mood and affect. Objective Data Vital Signs Vital Signs: Vital Signs - 24 hr 07/25/20 12:00 07/25/20 14:00 07/25/20 15:40 Temperature 36.4 C Pulse Rate 77 85 79 Respiratory Rate 19 28 H Blood Pressure 104/64 105/66 Pulse Oximetry 98 100 07/25/20 16:00 07/25/20 20:00 07/25/20 21:56 Temperature 36.3 C L Pulse Rate 98 74 85 R
[2020-07-26 12:20] LABS: Digoxin 1.8 ng/mL (0.8-2.0)
[2020-07-26 12:35] LABS: SARS-CoV-2 RNA PCR Negative
--- NOTE | 2020-07-26 12:54 | PM.PNCARD ---
Progress Note: A&P Assessment and Plan (1) Acute on chronic diastolic CHF (congestive heart failure): Code(s): I50.33 - Acute on chronic diastolic (congestive) heart failure Status: Acute Assessment and Plan: Cont bumetanide But will consider reduction if able to tolerate. 2 mg twice daily was her home regimen. of unable to maintain potassium level would recommend reduction to other 2 mg once daily or 2 mg in a.m. and 1 mg in afternoon. Potassium still low despite supplementation. Keep potassium close to 4.0. Given the risk associated with hypokalemia and elevated digoxin level 1.8 despite 0.125 mg every other day Risks now appear to outweigh benefit so will discontinue. difficult balance with safe management of AFib, heart failure, renal function in conjunction with underlying lung disease. Patient and family contemplating hospice/comfort measures yet apparently patient has not made a decision. CHF with underlying ILD suspected. Heart rate better controlled, patient feels better. (2) Atrial fibrillation: Onset Date: ~03/2019 Qualifiers: Atrial fibrillation type: permanent Qualified Code(s): I48.21 - Permanent atrial fibrillation Code(s): I48.91 - Unspecified atrial fibrillation Status: Acute Assessment and Plan: Heart rate better on digoxin thus far, but high level of 1.8 and significant hypokalemia present risks that outweigh benefit. Continue Metoprolol tartrate 100 mg twice daily. Change to Toprol XL 125mg daily in AM in order to simplify regimen. Anticoagulated with Eliquis. (3) Hypokalemia: Code(s): E87.6 - Hypokalemia Status: Resolved Assessment and Plan: remains a significant issue. This carries significant risk given her comorbidities, age and renal insufficiency. As such digoxin risk outweighs benefit and has been discontinued. This must be repleted. 40 mEq t.i.d. in addition to supplementation already ordered. (4) Respiratory failure: Qualifiers: Chronicity: acute on chronic Respiratory failure complication: unspecified whether with hypoxia or hypercapnia Qualified Code(s): J96.20 - Acute and chronic respiratory failure, unspecified whether with hypoxia or hypercapnia Code(s): J96.90 - Respiratory failure, unspecified, unspecified whether with hypoxia or hypercapnia Status: Acute Assessment and Plan: Chronic lung disease is followed by Dr. Martel. Pulmonology involvement appreciated. CT chest obtained. On home O2 and CPAP at home. (5) Pulmonary hypertension: Code(s): I27.20 - Pulmonary hypertension, unspecified Status: Acute Assessment and Plan: Has severe pulmonary hypertension, related to her chronic diastolic heart failure and chronic lung disease. Subjective Date/time seen: Date of Service: 07/26/20 12:54 Interval history: Follow-up for: chronic diastolic heart failure, Atrial fibrillation, respiratory failure. Patient says she feels better today. patient states she can take a deeper breath today, still feels better with regards to her breathing. No chest pain, palpitations. No bleeding. No new issues overnight although struggling with BiPAP. Not sleeping well as resolved. Potassium again low this morning 2.8. Review of Systems Constitutional: Constitutional: Reports fatigue and Reports weakness Eyes: Eyes: Denies blurry vision ENT: Denies dizziness, Reports hearing loss, Denies lip swelling, Denies epistaxis, Denies nasal congestion and Denies throat swelling Cardiovascular: Cardiovascular: Reports as per HPI, Denies chest pain, Reports pedal edema, Denies leg edema, Denies lightheadedness, Reports palpitations (Has not noted today.), Reports dyspnea and Reports dyspnea on exertion Respiratory:
[2020-07-26 15:34] LABS: Blood Urea Nitrogen 38 mg/dL (7-17); Calcium 9.1 mg/dL (8.4-10.2); Carbon Dioxide > 40 mmol/L (22-30); Chloride 80 mmol/L (98-107); Estimated CRCL calculation 29 ml/min; Estimated Glomerular Filt Rate 33; Glucose 97 mg/dL (65-105); Potassium 3.7 mmol/L (3.4-5.0); Sodium 132 mmol/L (137-145)
--- NOTE | 2020-07-26 16:18 | PM.PNPUL ---
Progress Note: A&P Assessment and Plan (1) Acute on chronic diastolic CHF (congestive heart failure): Code(s): I50.33 - Acute on chronic diastolic (congestive) heart failure Status: Acute Assessment and Plan: Improving. She is normally on 4 L/min at home. She is less dyspneic after thoracentesis. (2) Pulmonary hypertension assoc with unclear multi-factorial mechanisms: Code(s): I27.29 - Other secondary pulmonary hypertension Status: Acute Assessment and Plan: Likely multifactorial and due to left sided heart disease, chronic hypoxemia and TASH. I don't see any significant ILD although it's difficult see with the background of pleural effusions and pulmonary edema. She did have restrictive ventilatory defect on PFT last year but this could also be explained by decompensated heart failure. (3) Pleural effusion: Code(s): J90 - Pleural effusion, not elsewhere classified Status: Acute Assessment and Plan: Right pleural effusion improved after large thoracentesis almost a liter removed. Subjective Date/time seen: 07/26/20 16:18 This 79 year-old female is seen in follow up for increased shortness of breath due to a large right pleural effusion, pulmonary hypertension; she has chronic respiratory failure, on O2 around the clock, TASH. She is feeling better today after large thoracentesis with removal of almost a liter of reddish fluid yesterday. She is getting IV K+ replacement, was able to sit up in chair today. Review of Systems Review of Systems: All systems reviewed & are unremarkable except as noted in HPI and below Exam Const: General: cooperative, healthy appearing, comfortable, no acute distress, well developed, alert, awake and Physically active Nutritional Appearance: obese Orientation/consciousness: oriented to person, oriented to place, oriented to time and patient oriented x3 Limitations: physical limitations HENMT: Head: normal to inspection, normocephalic and atraumatic Eyes: General: appearance normal, both eyes and all related structures Resp: Effort & Inspection: normal respiratory effort Auscultation: crackles and diminished lung sounds (R>L ) Cardio: Jugular venous distension: no JVD Rate: regular rate Rhythm: regular rhythm Heart sounds: S1 normal heart sound present and S2 normal heart sound present Skin: General skin exam: normal color and no rashes or lesions noted Neuro: General: oriented to person, oriented to place, oriented to time and patient oriented x3 Cognition (Neuro): normal cognition Speech: normal speech Psych: Appearance: grossly normal and well kempt Mental Status: mental status grossly normal Objective Data Vital Signs Vital Signs: Vital Signs - 24 hr 07/25/20 20:00 07/25/20 21:56 07/25/20 22:01 Temperature 36.3 C L Pulse Rate 74 85 89 Respiratory Rate 20 Blood Pressure 105/53 L Pulse Oximetry 100 99 07/26/20 00:00 07/26/20 04:00 07/26/20 05:36 Temperature 36.1 C L Pulse Rate 89 80 74 Respiratory Rate 20 Blood Pressure 94/50 L Pulse Oximetry 95 07/26/20 08:00 07/26/20 08:41 07/26/20 08:57 Temperature Pulse Rate 90 90 Respiratory Rate Blood Pressure Pulse Oximetry 95 07/26/20 12:00 Temperature Pulse Rate 90 Respiratory Rate Blood Pressure Pulse Oximetry Intake/Output Intake/Output: Intake & Output 07/23/20 07/24/20 07/25/20 07/26/20 23:59 23:59 23:59 23:59 Intake Total 1290 1220 2120 550 Output Total 1275 2050 2975 150 Balance 15 -230 -429 400 Meds/Results Medications: Active Medications Generic Name Dose Route Start Last Admin Trade Name Freq PRN Reason Stop Dose Admin Acetaminophen 650 mg 07/20/20 15:21 07/26/20 10:25 Acetaminophen 325 Mg Tablet PO 650 mg Q6H PRN Administration Mild Pain (1-3) or Fever Apixaban 5 mg 07/17/20 09:00 07/25/20 19:47 Apixaban 5 Mg Tablet PO Not Given BID JENNIFER Atorvastatin Calcium 40
[2020-07-27] VITALS (12 sets, daily range): BP systolic 95–102; BP diastolic 50–62; PULSE 67–100; RESP 20–22; TEMP 36.1–36.8; O2SAT 94–100
[2020-07-27 08:51] LABS: Blood Urea Nitrogen 41 mg/dL (7-17); Calcium 8.7 mg/dL (8.4-10.2); Carbon Dioxide > 40 mmol/L (22-30); Chloride 85 mmol/L (98-107); Estimated CRCL calculation 33 ml/min; Estimated Glomerular Filt Rate 39; Glucose 103 mg/dL (65-105); Potassium 4.1 mmol/L (3.4-5.0); Sodium 132 mmol/L (137-145)
[2020-07-27 09:05] LABS: Magnesium 1.7 mg/dL (1.6-2.3)
[2020-07-27] MEDS: BUMETANIDE 1 MG TABLET 2 MG PO (09:28)
[2020-07-27] MEDS: FAMOTIDINE 20 MG TABLET 40 MG PO (09:28)
[2020-07-27] MEDS: ATORVASTATIN 40 MG TABLET PO (09:28)
[2020-07-27] MEDS: FOLIC ACID 1 MG TABLET PO (09:29)
[2020-07-27] MEDS: PANTOPRAZOLE SOD SESQUIHYDRATE 20 MG TAB PO (09:29)
[2020-07-27] MEDS: METOPROLOL SUCCINATE EXT REL 100 MG TABCR PO (09:29)
[2020-07-27] MEDS: POTASSIUM CHLORIDE 20 MEQ TABLET.ER 40 MEQ PO ×3 (09:30→17:29)
[2020-07-27] MEDS: METOPROLOL SUCCINATE EXT REL 25 MG TABCR PO (09:30)
[2020-07-27] MEDS: TOLNAFTATE 1% POWDER 45 GM BTL 1 APPLIC TOPICAL ×2 (09:32→21:47)
--- NOTE | 2020-07-27 11:03 | PM.PNPUL ---
Progress Note: A&P Assessment and Plan (1) Acute on chronic diastolic CHF (congestive heart failure): Code(s): I50.33 - Acute on chronic diastolic (congestive) heart failure Status: Acute Assessment and Plan: Cumulative I/O still suggests that she is 2 liters positive since admission. Would recommend continuing aggressive diuresis as tolerated. (2) Pulmonary hypertension assoc with unclear multi-factorial mechanisms: Code(s): I27.29 - Other secondary pulmonary hypertension Status: Acute Assessment and Plan: Likely multifactorial and due to left sided heart disease, chronic hypoxemia and TASH. I don't see any significant ILD although it's difficult see with the background of pleural effusions and pulmonary edema. She did have restrictive ventilatory defect on PFT last year but this could also be explained by decompensated heart failure. (3) Pleural effusion: Code(s): J90 - Pleural effusion, not elsewhere classified Status: Acute Assessment and Plan: S/p right thoracentesis with mostly blood fluid but not hemorrhagic. In light of this as well as her age and renal insuffuciency i'm going to recommend restarting Apixaban at a lower dose of 2.5 mg bid instead of 5 mg bid. Subjective Date/time seen: 07/27/20 11:03 Interval history: She is feeling much better after about 1000 cc of bloody fluid removed from her right pleural space. Sats are 98% on 5 liters and oxygen can be weaned to 2-3 liters. Review of Systems Review of Systems: All systems reviewed & are unremarkable except as noted in HPI and below Exam Const: General: cooperative, healthy appearing, comfortable, no acute distress, well developed, alert, awake and Physically active Nutritional Appearance: obese Orientation/consciousness: oriented to person, oriented to place, oriented to time and patient oriented x3 Limitations: physical limitations HENMT: Head: normal to inspection, normocephalic and atraumatic Eyes: General: appearance normal, both eyes and all related structures Resp: Effort & Inspection: normal respiratory effort Auscultation: crackles and diminished lung sounds (R>L ) Cardio: Jugular venous distension: no JVD Rate: regular rate Rhythm: regular rhythm Heart sounds: S1 normal heart sound present and S2 normal heart sound present Skin: General skin exam: normal color and no rashes or lesions noted Neuro: General: oriented to person, oriented to place, oriented to time and patient oriented x3 Cognition (Neuro): normal cognition Speech: normal speech Psych: Appearance: grossly normal and well kempt Mental Status: mental status grossly normal Objective Data Vital Signs Vital Signs: Vital Signs - 24 hr 07/26/20 12:00 07/26/20 14:00 07/26/20 16:00 Temperature 36.3 C L Pulse Rate 90 85 100 Respiratory Rate 16 Blood Pressure 99/58 L Pulse Oximetry 99 07/26/20 20:00 07/26/20 20:50 07/26/20 21:59 Temperature 36.2 C L Pulse Rate 84 84 88 Respiratory Rate 20 Blood Pressure 92/58 L Pulse Oximetry 100 100 07/27/20 00:00 07/27/20 04:00 07/27/20 05:16 Temperature 36.1 C L Pulse Rate 75 74 70 Respiratory Rate 22 H Blood Pressure 95/50 L Pulse Oximetry 98 07/27/20 08:00 07/27/20 09:29 07/27/20 09:30 Temperature Pulse Rate 77 70 70 Respiratory Rate Blood Pressure Pulse Oximetry 07/27/20 09:40 Temperature Pulse Rate Respiratory Rate Blood Pressure Pulse Oximetry 98 Intake/Output Intake/Output: Intake & Output 07/24/20 07/25/20 07/26/20 07/27/20 23:59 23:59 23:59 23:59 Intake Total 1220 2120 1780 120 Output Total 2050 2975 150 Balance -830 -855 1630 120 Meds/Results Medications: Active Medications Generic Name Dose Route Start Last Admin Trade Name Freq PRN Reason Stop Dose Admin Acetaminophen 650 mg 07/20/20 15:21 07/26/20 10:25 Acetaminophen 325 Mg Tablet PO 650 mg Q6H PRN Administration Mild
--- NOTE | 2020-07-27 12:04 | PM.PNCARD ---
Progress Note: A&P Assessment and Plan (1) Acute on chronic diastolic CHF (congestive heart failure): Code(s): I50.33 - Acute on chronic diastolic (congestive) heart failure Status: Acute Assessment and Plan: Improved clinically. Continue Bumex and metolazone as scheduled along with aggressive potassium repletion. Monitor renal function closely. Creatinine stable. Sodium low 132 chloride 85 likely due to diuresis. PT OT CHF with underlying ILD suspected. Heart rate better controlled, patient feels better. (2) Atrial fibrillation: Onset Date: ~03/2019 Qualifiers: Atrial fibrillation type: permanent Qualified Code(s): I48.21 - Permanent atrial fibrillation Code(s): I48.91 - Unspecified atrial fibrillation Status: Acute Assessment and Plan: Toprol XL 125 mg started this morning in order to simplify regimen. May up titrate as needed for heart rate control and as blood pressure tolerates. Off digoxin due to elevated level and electrolyte abnormalities. Anticoagulated with Eliquis. (3) Hypokalemia: Code(s): E87.6 - Hypokalemia Status: Resolved Assessment and Plan: Continue potassium supplementation. Potassium level 4.1 this morning. (4) Respiratory failure: Qualifiers: Chronicity: acute on chronic Respiratory failure complication: unspecified whether with hypoxia or hypercapnia Qualified Code(s): J96.20 - Acute and chronic respiratory failure, unspecified whether with hypoxia or hypercapnia Code(s): J96.90 - Respiratory failure, unspecified, unspecified whether with hypoxia or hypercapnia Status: Acute Assessment and Plan: Multifactorial in combination with CHF and probable underlying Chronic lung disease followed by Dr. Martel. Pulmonology involvement appreciated. CT chest obtained. On home O2 and CPAP at home. Right pleural effusion status post thoracentesis (5) Pulmonary hypertension: Code(s): I27.20 - Pulmonary hypertension, unspecified Status: Acute Assessment and Plan: Has severe pulmonary hypertension, related to her chronic diastolic heart failure and chronic lung disease. Subjective Date/time seen: Date of service: 07/27/20 12:04 Follow-up for atrial fibrillation, CHF Patient feels even better today. Denies significant shortness of breath or palpitations. No chest pain. Breathing much easier. Digoxin stopped yesterday due to elevated level and severe hypokalemia. Potassium 4.1 this morning. Atrial fibrillation controlled heart rate generally less than 100 beats per minute. Toprol XL 125 mg daily started this morning in attempt to simplify regimen. Review of Systems Review of Systems: All systems reviewed & are unremarkable except as noted in HPI and below Constitutional: Constitutional: Reports as per HPI, Reports no additional constitutional complaints, Denies fatigue and Reports weakness Eyes: Eyes: Reports as per HPI, Reports no additional eye complaints and Denies blurry vision ENT: Reports system reviewed and no additional complaints, except as documented, Reports as per HPI, Denies dizziness, Reports hearing loss, Denies lip swelling, Denies epistaxis, Denies nasal congestion and Denies throat swelling Cardiovascular: Cardiovascular: Reports as per HPI, Reports no additional cardiovascular complaints, Denies chest pain, Reports pedal edema, Reports leg edema, Denies lightheadedness, Denies palpitations (Has not noted today.), Reports dyspnea and Reports dyspnea on exertion Respiratory: Respiratory: Reports as per HPI, Denies chest congestion, Denies cough, Denies dyspnea, Reports dyspnea on exertion and Denies wheezing Gastrointestinal: Gastrointestinal: Reports as per HPI and Denies abdominal pain Genitourinary: Genitourinary: Reports no addit
--- NOTE | 2020-07-27 12:16 | PM.IMPN ---
Progress Note: A&P Assessment and Plan (1) Acute exacerbation of congestive heart failure: Qualifiers: Heart failure type: unspecified Qualified Code(s): I50.9 - Heart failure, unspecified Code(s): I50.9 - Heart failure, unspecified Status: Chronic Assessment and Plan: -Patient has had multiple readmissions for the same issue over the past couple years exacerbation of her diastolic heart failure -chronically on 3-4 L home oxygen therapy, currently on 5 L O2, hopeful Dc when pt is back to her baseline -patient is DNR and is agreeable to BiPAP as needed -Pt is on oral bumex and oral metolazone -Patient to work with physical therapy -Cardiology rounding pt is on metoprolol for AF -EF is EF 65-70%, indeterminate diastolic dysfunction Pt had ct chest pt is breathing little better today after thoracentesis yesterday 07/27/20 12:16 Patient 79-year-old female with history of diastolic dysfunction with normal systolic function with ejection fraction of 65%, initially present presented with a nosebleed which has now resolved, patient is being diuresed suspected volume overload with Bumex and metolazone seen by estimator project manager, patient has developed hyperkalemia most likely due to diuresis and being supplemented her potassium is 4.1 today, also there was a concerned the patient may have pulmonary hypertension and interstitial lung disease and patient is seen by employee relations specialist recommended to continue diuresing as patient can tolerate, today patient is sitting in the chair states feeling much better denies any shortness of breath, did participate with physical therapy and was able to ambulate without significant difficulty, she also history of atrial fibrillation rate is controlled anticoagulated with Eliquis, will continue. Upon arrival patient was tested for COVID-19 and patient is negative. (2) Acute and chronic respiratory failure: Qualifiers: Respiratory failure complication: hypoxia and hypercapnia Qualified Code(s): J96.21 - Acute and chronic respiratory failure with hypoxia; J96.22 - Acute and chronic respiratory failure with hypercapnia Code(s): J96.20 - Acute and chronic respiratory failure, unspecified whether with hypoxia or hypercapnia Status: Acute Assessment and Plan: Supportive care keep oxygen saturation greater 90%, on 4 L Continue slow diuresis + thoracentesis (3) Epistaxis: Code(s): R04.0 - Epistaxis Status: Acute Assessment and Plan: Resolved (4) Atrial fibrillation: Onset Date: ~03/2019 Qualifiers: Atrial fibrillation type: permanent Qualified Code(s): I48.21 - Permanent atrial fibrillation Code(s): I48.91 - Unspecified atrial fibrillation Status: Acute Assessment and Plan: -Eliquis for her anticoagulation -Changed to metoprolol by cardiology (5) Mixed hyperlipidemia: Code(s): E78.2 - Mixed hyperlipidemia Status: Chronic Assessment and Plan: Continue statin (6) Essential (primary) hypertension: Code(s): I10 - Essential (primary) hypertension Status: Chronic Assessment and Plan: Stable (7) Hypokalemia: Code(s): E87.6 - Hypokalemia Status: Resolved Assessment and Plan: Secondary diuresis, continue to replace potassium as needed, potassium is 2.8, K rider and potassium supplement, reorder BMp in afternoon Subjective Date/time seen: 07/27/20 12:16 Patient 79-year-old female with history of diastolic dysfunction with normal systolic function with ejection fraction of 65%, initially present presented with a nosebleed which has now resolved, patient is being diuresed suspected volume overload with Bumex and metolazone seen by estimator project manager, patient has developed hyperkalemia most likely due to diuresis and being supplemented her potassium is 4.1 today, also there was a concerned the patient may have pulmonary hypertension and interstitial lung disea
[2020-07-27] MEDS: ACETAMINOPHEN 325 MG TABLET 650 MG PO (20:18)
[2020-07-28] VITALS (14 sets, daily range): BP systolic 90–149; BP diastolic 47–60; PULSE 81–98; RESP 16–22; TEMP 36.5–37; O2SAT 91–99
[2020-07-28 06:15] LABS: Blood Urea Nitrogen 40 mg/dL (7-17); Calcium 8.8 mg/dL (8.4-10.2); Carbon Dioxide > 40 mmol/L (22-30); Chloride 86 mmol/L (98-107); Estimated CRCL calculation 33 ml/min; Estimated Glomerular Filt Rate 39; Glucose 94 mg/dL (65-105); Magnesium 1.7 mg/dL (1.6-2.3); Potassium 4.2 mmol/L (3.4-5.0); Sodium 132 mmol/L (137-145)
[2020-07-28] MEDS: METOPROLOL SUCCINATE EXT REL 100 MG TABCR PO (08:07)
[2020-07-28] MEDS: BUMETANIDE 1 MG TABLET 2 MG PO ×2 (08:07→18:01)
[2020-07-28] MEDS: ERGOCALCIFEROL 50,000 UNIT CAPSULE 50000 UNITS PO (08:07)
[2020-07-28] MEDS: ATORVASTATIN 40 MG TABLET PO (08:08)
[2020-07-28] MEDS: PANTOPRAZOLE SOD SESQUIHYDRATE 20 MG TAB PO (08:08)
[2020-07-28] MEDS: metOLazone 2.5 MG TABLET PO (08:08)
[2020-07-28] MEDS: FOLIC ACID 1 MG TABLET PO (08:08)
[2020-07-28] MEDS: FAMOTIDINE 20 MG TABLET 40 MG PO (08:08)
[2020-07-28] MEDS: APIXABAN 2.5 MG TABLET PO ×2 (08:09→18:01)
[2020-07-28] MEDS: polyethylene glycoL 3350 17 GM POWD.PACK PO (08:09)
[2020-07-28] MEDS: POTASSIUM CHLORIDE 20 MEQ TABLET.ER 40 MEQ PO ×2 (08:09→18:01)
[2020-07-28] MEDS: METOPROLOL SUCCINATE EXT REL 25 MG TABCR PO (08:09)
[2020-07-28] MEDS: TOLNAFTATE 1% POWDER 45 GM BTL 1 APPLIC TOPICAL ×2 (08:10→22:45)
--- NOTE | 2020-07-28 10:03 | PM.PNCARD ---
Progress Note: A&P Assessment and Plan (1) Acute on chronic diastolic CHF (congestive heart failure): Code(s): I50.33 - Acute on chronic diastolic (congestive) heart failure Status: Acute Assessment and Plan: Improved clinically. Continue Bumex and metolazone as scheduled along with aggressive potassium repletion. Creatinine stable. Sodium low 132 chloride 86 likely due to diuresis. Post right thoracentesis 07/25/2020 of 950 cc red fluid Heart rate well controlled. (2) Atrial fibrillation: Onset Date: ~03/2019 Qualifiers: Atrial fibrillation type: permanent Qualified Code(s): I48.21 - Permanent atrial fibrillation Code(s): I48.91 - Unspecified atrial fibrillation Status: Acute Assessment and Plan: Continue Toprol XL 125 mg daily. Heart rate is well controlled. BP soft at times. Occasional lightheadedness when first gets up Off digoxin due to elevated level and electrolyte abnormalities. Anticoagulated with Eliquis at 2.5 mg BID due to age and renal function (3) Hypokalemia: Code(s): E87.6 - Hypokalemia Status: Resolved Assessment and Plan: Continue potassium supplementation. Potassium level 4.2 this morning. Will need to monitor closely as outpatient (4) Respiratory failure: Qualifiers: Chronicity: acute on chronic Respiratory failure complication: unspecified whether with hypoxia or hypercapnia Qualified Code(s): J96.20 - Acute and chronic respiratory failure, unspecified whether with hypoxia or hypercapnia Code(s): J96.90 - Respiratory failure, unspecified, unspecified whether with hypoxia or hypercapnia Status: Acute Assessment and Plan: Multifactorial in combination with CHF and probable underlying chronic lung disease followed by Dr. Martel. Pulmonology involvement appreciated. On home O2 and CPAP at home. Right pleural effusion status post thoracentesis as above (5) Pulmonary hypertension: Code(s): I27.20 - Pulmonary hypertension, unspecified Status: Acute Assessment and Plan: Has severe pulmonary hypertension, related to her chronic diastolic heart failure and chronic lung disease. Additional Plan OK to discharge from cardiac standpoint See discharge instructions for follow-up. Plan discussed with Dr Goldberg [id number] 07/28/2020 Subjective Date/time seen: 07/28/20 10:03 Interval history: Follow-up for: chronic diastolic heart failure, Atrial fibrillation, respiratory failure. Date of service: 07/28/2020 Subjective: Tired. Not sure she is ready to go home. Does not know who is going to take care of her. Denied chest discomfort. Breathing is ?good?. Lightheaded if gets up too quickly. No palpitations. Review of Systems Constitutional: Constitutional: Reports fatigue and Reports weakness Eyes: Eyes: Denies blurry vision ENT: Denies dizziness, Reports hearing loss, Denies lip swelling, Denies epistaxis, Denies nasal congestion and Denies throat swelling Cardiovascular: Cardiovascular: Denies chest pain, Reports pedal edema, Reports leg edema, Reports lightheadedness (If gets up too quickly), Denies palpitations, Denies dyspnea and Reports dyspnea on exertion (Improved) Respiratory: Respiratory: Denies chest congestion, Denies cough, Denies dyspnea, Reports dyspnea on exertion and Denies wheezing Gastrointestinal: Gastrointestinal: Denies abdominal pain Genitourinary: Genitourinary: Denies hematuria Musculoskeletal: Musculoskeletal: Denies back pain Integumentary/Breasts: Skin/Breast: Denies rash Neurologic: Denies confusion, Denies dizziness and Reports weakness Psychiatric: Psychiatric: Denies anxiety, Denies confusion and Denies depression Endocri
--- NOTE | 2020-07-28 13:58 | PM.DS ---
DS: Admitting Diagnosis Admitting Diagnosis Admitting Diagnosis: Acute hypercapnic/respiratory failure/acute CHF ex DS: Summary Time Spent with Patient Time attestation: Total time spent providing and/or coordinating discharge services: DS: Data Data Completed and Pending Pending studies at discharge: Pending at discharge 07/25/20 09:07 Cytology [PTH] Routine Labs on day of discharge: Labs from last 24 hours 07/28/20 04:56 Sodium 132 L Potassium 4.2 Chloride 86 L Carbon Dioxide > 40 H Anion Gap BUN 40 H Creatinine 1.30 H Estim Creat Clear Calc 33 Estimated GFR 39 L Glucose 94 Calcium 8.8 Magnesium 1.7 Preliminary micro results at discharge 07/25/20 15:16 Anaerobic Culture - Preliminary Pleural Fluid Aerobic Culture - Preliminary Fungal Culture - Preliminary 07/25/20 15:16 Acid Fast Bacilli Culture - Preliminary Pleural Fluid Discharge Plan Discharge Attending physician on discharge: Colt Figueroa Consulting providers: ; Dominguez Roy ; Adryan Prince Discharging Clinician: Colt Figueroa Patient Disposition: Home Health Service Activity: other - see discharge instructions Diet: low sodium Discharge Instructions: Per Care Coordination, pt. will discharge to [facility] in [facility] [phone] with [facility] through [place] CARDIOLOGY DISCHARGE INSTRUCTIONS: ACTIVITY: Activity as tolerated with precautions to avoid falls. Rise slowly from a seated or lying position. Elevate legs when sitting. Weigh your self daily after you have urinated in the morning. If you gain more than 3 lb in 2 days or 5 lb in one week please call Dr Wade's office and speak to one of the nurses. FOLLOW-UP: Follow up with [facility] ([facility]ally [facility]) office at [facility] [address] with Yamileth Mclean NP on August 08, 2020 at 9:00 a.m. Please arrive by 8:45 a.m. for your appointment. Bring photo ID, insurance card(s) and current medication list. DIET: Limit sodium intake to no more than 2000 mg per day BLOOD WORK: Have blood drawn on Tuesday, August 04, 2020 to check kidney function and electrolytes. Results to go Dr Wade's office and Dr. Wolf Russell. 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 patient is instructed if any symptoms get worsen to go to nearest ER. Patient Instructions: Antibiotic Form, Metoprolol (By mouth), Apixaban (By mouth), Heart Failure (DC) Stand Alone Forms: General Discharge Information Follow-up/Referrals: Adryan Prince MD [Physician] - Dominguez Roy MD [Physician] - Wolf Russell MD [Primary Care Provider] - Discharge Medications: New metoprolol succinate [Toprol XL] 25 mg Tablet Extended Release 24 Hr 25 mg PO QAM Qty: 30 RF: 3 metoprolol succinate [Toprol XL] 100 mg Tablet Extended Release 24 Hr 100 mg PO QAM Qty: 30 RF: 3 Aloe [place] Antifungal (micon) 2 % Ointment 1 applic topical Q12HR Qty: 1692 RF: 0 Eliquis 2.5 mg Tablet 2.5 mg PO BID Qty: 60 RF: 3 Continued polyethylene glycol 3350 17 gram Powder In Packet 17 g PO DAILY RF: 0 omeprazole 20 mg capsule,delayed release(DR/EC) 20 mg PO DAILY RF: 0 vitamin D3-folic acid 5,000 unit- 1 mg Tablet 1 tablet PO DAILY RF: 0 metolazone 2.5 mg Tablet 2.5 mg PO MoFr@0900 Qty: 8 RF: 3 potassium chloride 10 mEq tablet extended release 20 meq PO DAILY Qty: 60 RF: 3 bumetanide 2 mg tablet 2 mg PO BID RF: 0 famotidine 40 mg tablet 40 mg PO DAILY Qty: 90 RF: 3 nystatin 100,000 unit/gram powder 1 applic TOPICAL BID Qty: 30 RF: 1 atorvastatin 40 mg tablet 40 mg PO DAILY Qt
--- NOTE | 2020-07-28 15:44 | PM.PNPUL ---
Progress Note: A&P Assessment and Plan (1) COPD (chronic obstructive pulmonary disease): Qualifiers: COPD type: unspecified COPD Qualified Code(s): J44.9 - Chronic obstructive pulmonary disease, unspecified Code(s): J44.9 - Chronic obstructive pulmonary disease, unspecified Status: Acute Assessment and Plan: She has COPD with acute on chronic hypercapnic hypoxemic respiratory failure, normally on 4 L at home, has been on higher amount here. Today she is on 2 L a minute. She was admitted with acute on chronic respiratory failure. She has been on oxygen 4 L of minute. During this hospitalization her blood gases have shown elevated pCO2 at 74. She was on APAP at home, BiPAP while in the hospital at 15/ 5 then 18/7 with persistent hypercapnia. She also required supplemental oxygen. This patient has failed BiPAP therapy. She is a candidate for non invasive ventilation with all sleep and as needed during the day for shortness of breath. She has tried and failed BiPAP and has failed APAP at home. I have contacted her home health company [facility] who is assisting in arranging an NIV for the patient. She is not able to tolerate APAP at home. She can use 2 L a minute during the day and with her NIV. (2) Obstructive sleep apnea (adult) (pediatric): Onset Date: ~2016 Code(s): G47.33 - Obstructive sleep apnea (adult) (pediatric) Status: Acute Assessment and Plan: Most recent sleep study was in 2006 with an optimal pressure of 12 cm. She has been on auto PAP 4-10 cm most recently with elevated apnea-hypopnea index. (3) Acute on chronic diastolic CHF (congestive heart failure): Code(s): I50.33 - Acute on chronic diastolic (congestive) heart failure Status: Acute Assessment and Plan: Improving. She is normally on 4 L/min at home. She is less dyspneic after thoracentesis. Today she is on 2 L a minute with adequate saturation. (4) Pulmonary hypertension assoc with unclear multi-factorial mechanisms: Code(s): I27.29 - Other secondary pulmonary hypertension Status: Acute Assessment and Plan: Likely multifactorial and due to left sided heart disease, chronic hypoxemia and TASH. I don't see any significant ILD although it's difficult see with the background of pleural effusions and pulmonary edema. She did have restrictive ventilatory defect on PFT last year but this could also be explained by decompensated heart failure. (5) Pleural effusion: Code(s): J90 - Pleural effusion, not elsewhere classified Status: Acute Assessment and Plan: Right pleural effusion improved after large thoracentesis almost a liter removed. This showed red blood cells. The patient has had some hemorrhagic pleural effusions in the past. Her from mesothelial and she washed his clothes. Is remained a concern with her restrictive impairment and progressive shortness of breath with a bloody pleural effusion that she may be at risk for mesothelioma however cytology has been negative. Subjective Date/time seen: 07/28/20 15:44 This 79 yo female is seen in follow up for chronic respiratory failure, chronic O2 use, COPD, pulmonary hypertension and obstructive sleep apnea. Her most recent compliance download from her auto PAP shows an apnea-hypopnea index which is elevated out of the normal range. Since Apr 16 through Jul 14, her AHI is 25.9 using APAP 4-10 cm. She feels a little better. Review of Systems Review of Systems: All systems reviewed & are unremarkable except as noted in HPI and below Exam HENMT: Head: nor
[2020-07-29] VITALS (7 sets, daily range): BP systolic 107–115; BP diastolic 47–72; PULSE 88–102; RESP 20–24; TEMP 36.1–36.9; O2SAT 91–98
[2020-07-29 05:50] LABS: Potassium 3.1 mmol/L (3.4-5.0)
[2020-07-29 06:07] LABS: Blood Urea Nitrogen 39 mg/dL (7-17); Calcium 8.9 mg/dL (8.4-10.2); Carbon Dioxide > 40 mmol/L (22-30); Chloride 83 mmol/L (98-107); Estimated CRCL calculation 36 ml/min; Estimated Glomerular Filt Rate 43; Glucose 104 mg/dL (65-105); Sodium 135 mmol/L (137-145)
[2020-07-29] MEDS: BUMETANIDE 1 MG TABLET 2 MG PO ×2 (08:38→17:14)
[2020-07-29] MEDS: APIXABAN 2.5 MG TABLET PO ×2 (08:38→17:13)
[2020-07-29] MEDS: POTASSIUM CHLORIDE 20 MEQ TABLET.ER 40 MEQ PO ×2 (08:43→17:14)
[2020-07-29] MEDS: FAMOTIDINE 20 MG TABLET 40 MG PO (10:50)
[2020-07-29] MEDS: ATORVASTATIN 40 MG TABLET PO (10:51)
[2020-07-29] MEDS: METOPROLOL SUCCINATE EXT REL 100 MG TABCR PO (10:51)
[2020-07-29] MEDS: METOPROLOL SUCCINATE EXT REL 25 MG TABCR PO (10:51)
[2020-07-29] MEDS: FOLIC ACID 1 MG TABLET PO (10:51)
[2020-07-29] MEDS: polyethylene glycoL 3350 17 GM POWD.PACK PO (10:52)
[2020-07-29] MEDS: TOLNAFTATE 1% POWDER 45 GM BTL 1 APPLIC TOPICAL ×2 (10:52→19:53)
[2020-07-29] MEDS: PANTOPRAZOLE SOD SESQUIHYDRATE 20 MG TAB PO (10:52)
--- NOTE | 2020-07-29 12:13 | PM.PNPUL ---
Progress Note: A&P Assessment and Plan (1) COPD (chronic obstructive pulmonary disease): Qualifiers: COPD type: unspecified COPD Qualified Code(s): J44.9 - Chronic obstructive pulmonary disease, unspecified Code(s): J44.9 - Chronic obstructive pulmonary disease, unspecified Status: Acute Assessment and Plan: She has COPD with acute on chronic hypercapnic hypoxemic respiratory failure, normally on 4 L at home, has been on higher amount here. Today she is on 2 L a minute. She was admitted with acute on chronic respiratory failure. She has been on oxygen 4 L of minute. During this hospitalization her blood gases have shown elevated pCO2 at 74. She was on APAP at home, BiPAP while in the hospital at 15/ 5 then 18/7 with persistent hypercapnia. She also required supplemental oxygen. This patient has failed BiPAP therapy. She is a candidate for non invasive ventilation with all sleep and as needed during the day for shortness of breath. She has tried and failed BiPAP and has failed APAP at home. I have contacted her home health company [facility] who is assisting in arranging an NIV for the patient. She is not able to tolerate APAP at home. She can use 2 L a minute during the day and with her NIV. (2) Obstructive sleep apnea (adult) (pediatric): Onset Date: ~2016 Code(s): G47.33 - Obstructive sleep apnea (adult) (pediatric) Status: Acute Assessment and Plan: Most recent sleep study was in 2006 with an optimal pressure of 12 cm. She has been on auto PAP 4-10 cm most recently with elevated apnea-hypopnea index. (3) Acute on chronic diastolic CHF (congestive heart failure): Code(s): I50.33 - Acute on chronic diastolic (congestive) heart failure Status: Acute Assessment and Plan: Improving. She is normally on 4 L/min at home. She is less dyspneic after thoracentesis. Today she is on 2 L a minute with adequate saturation. (4) Pulmonary hypertension assoc with unclear multi-factorial mechanisms: Code(s): I27.29 - Other secondary pulmonary hypertension Status: Acute Assessment and Plan: Likely multifactorial and due to left sided heart disease, chronic hypoxemia and TASH. I don't see any significant ILD although it's difficult see with the background of pleural effusions and pulmonary edema. She did have restrictive ventilatory defect on PFT last year but this could also be explained by decompensated heart failure. (5) Pleural effusion: Code(s): J90 - Pleural effusion, not elsewhere classified Status: Acute Assessment and Plan: Right pleural effusion improved after large thoracentesis almost a liter removed. This showed red blood cells. The patient has had some hemorrhagic pleural effusions in the past. Her from mesothelial and she washed his clothes. Is remained a concern with her restrictive impairment and progressive shortness of breath with a bloody pleural effusion that she may be at risk for mesothelioma however cytology has been negative. Subjective Date/time seen: 07/29/20 12:13 Interval history: Feeling better. Dr. Martel switched her NIV settings due to poor results with auto CPAP at home. She is going home today Review of Systems Review of Systems: All systems reviewed & are unremarkable except as noted in HPI and below Exam HENMT: Head: normal to inspection, normocephalic and atraumatic Ears: hearing grossly normal bilaterally General nose exam: Normal external nose present and Epistaxis present Face and sinus: normal facial exam Mouth: Yes moist mucous membran
--- NOTE | 2020-07-29 16:52 | PCDIET ---
Nutrition Follow-Up Complete: Inadequate Oral Intake as related to respiratory failure as evidenced by poor po intake reported since admission. Meet estimated nutritional needs Goal: met Pt current nutrition is heart healthy Nutrition recommendation: agree Last recorded weight is 96.8 kg. Bowel Motility: 5 BMs yesterday, no GI complaints today Labs Reviewed: Na 135, K 3.1, GFR 43 Meds Noted:Lipitor, Eliquis, Bumex, Drisdol, Folic Acid, KCL, Miralax, Protonix, Toprol Additional Notes: Pt with possible d/c today. Eating 75-100% of meals. Appetite good. No needs at this time. Will assess PO intake for adequacy every 7 days.
[2020-07-29 16:59] LABS: Amylase, Pleural Fluid 49 U/L
--- NOTE | 2020-07-29 17:37 | PM.IMPN ---
Progress Note: A&P Assessment and Plan (1) Acute exacerbation of congestive heart failure: Qualifiers: Heart failure type: unspecified Qualified Code(s): I50.9 - Heart failure, unspecified Code(s): I50.9 - Heart failure, unspecified Status: Chronic Assessment and Plan: -Patient has had multiple readmissions for the same issue over the past couple years exacerbation of her diastolic heart failure -chronically on 3-4 L home oxygen therapy, currently on 5 L O2, hopeful Dc when pt is back to her baseline -patient is DNR and is agreeable to BiPAP as needed -Pt is on oral bumex and oral metolazone -Patient to work with physical therapy -Cardiology rounding pt is on metoprolol for AF -EF is EF 65-70%, indeterminate diastolic dysfunction Pt had ct chest pt is breathing little better today after thoracentesis yesterday 07/28/20 Patient 79-year-old female with history of diastolic dysfunction with normal systolic function with ejection fraction of 65%, initially present presented with a nosebleed which has now resolved, patient is being diuresed suspected volume overload with Bumex and metolazone seen by hosiery repairer, patient has developed hyperkalemia most likely due to diuresis and being supplemented her potassium is 4.1 today, also there was a concerned the patient may have pulmonary hypertension and interstitial lung disease and patient is seen by pastry cook helper recommended to continue diuresing as patient can tolerate, today patient is sitting in the chair states feeling much better denies any shortness of breath, did participate with physical therapy and was able to ambulate without significant difficulty, she also history of atrial fibrillation rate is controlled anticoagulated with Eliquis, will continue. Upon arrival patient was tested for COVID-19 and patient is negative. Patient clinicall symptms were improving and hosiery repairer and pastry cook helper were ok to discharge patient back to assisted living however her trilogy was not delivered at her home and pastry cook helper recommended to wait until trilogy is delivered, will continue to monitor and further recommendation to follow (2) Acute and chronic respiratory failure: Qualifiers: Respiratory failure complication: hypoxia and hypercapnia Qualified Code(s): J96.21 - Acute and chronic respiratory failure with hypoxia; J96.22 - Acute and chronic respiratory failure with hypercapnia Code(s): J96.20 - Acute and chronic respiratory failure, unspecified whether with hypoxia or hypercapnia Status: Acute Assessment and Plan: Supportive care keep oxygen saturation greater 90%, on 4 L Continue slow diuresis + thoracentesis (3) Epistaxis: Code(s): R04.0 - Epistaxis Status: Acute Assessment and Plan: Resolved (4) Atrial fibrillation: Onset Date: ~03/2019 Qualifiers: Atrial fibrillation type: permanent Qualified Code(s): I48.21 - Permanent atrial fibrillation Code(s): I48.91 - Unspecified atrial fibrillation Status: Acute Assessment and Plan: -Eliquis for her anticoagulation -Changed to metoprolol by cardiology (5) Mixed hyperlipidemia: Code(s): E78.2 - Mixed hyperlipidemia Status: Chronic Assessment and Plan: Continue statin (6) Essential (primary) hypertension: Code(s): I10 - Essential (primary) hypertension Status: Chronic Assessment and Plan: Stable (7) Hypokalemia: Code(s): E87.6 - Hypokalemia Status: Resolved Assessment and Plan: Secondary diuresis, continue to replace potassium as needed, potassium is 2.8, K rider and potassium supplement, reorder BMp in afternoon Subjective Date/time seen: 07/28/20 Patient 79-year-old female with history of diastolic dysfunction with normal systolic function with ejection fraction of 65%, initially present presented with a nosebleed which has now resolved, patient is bein
--- NOTE | 2020-07-29 17:37 | PM.IMPN ---
Progress Note: A&P Assessment and Plan (1) Acute exacerbation of congestive heart failure: Qualifiers: Heart failure type: unspecified Qualified Code(s): I50.9 - Heart failure, unspecified Code(s): I50.9 - Heart failure, unspecified Status: Chronic Assessment and Plan: -Patient has had multiple readmissions for the same issue over the past couple years exacerbation of her diastolic heart failure -chronically on 3-4 L home oxygen therapy, currently on 5 L O2, hopeful Dc when pt is back to her baseline -patient is DNR and is agreeable to BiPAP as needed -Pt is on oral bumex and oral metolazone -Patient to work with physical therapy -Cardiology rounding pt is on metoprolol for AF -EF is EF 65-70%, indeterminate diastolic dysfunction Pt had ct chest pt is breathing little better today after thoracentesis yesterday 07/28/20 Patient 79-year-old female with history of diastolic dysfunction with normal systolic function with ejection fraction of 65%, initially present presented with a nosebleed which has now resolved, patient is being diuresed suspected volume overload with Bumex and metolazone seen by perfumer, patient has developed hyperkalemia most likely due to diuresis and being supplemented her potassium is 4.1 today, also there was a concerned the patient may have pulmonary hypertension and interstitial lung disease and patient is seen by wallpaper remover steam recommended to continue diuresing as patient can tolerate, today patient is sitting in the chair states feeling much better denies any shortness of breath, did participate with physical therapy and was able to ambulate without significant difficulty, she also history of atrial fibrillation rate is controlled anticoagulated with Eliquis, will continue. Upon arrival patient was tested for COVID-19 and patient is negative. Patient clinicall symptms were improving and perfumer and wallpaper remover steam were ok to discharge patient back to assisted living however her trilogy was not delivered at her home and wallpaper remover steam recommended to wait until trilogy is delivered, will continue to monitor and further recommendation to follow (2) Acute and chronic respiratory failure: Qualifiers: Respiratory failure complication: hypoxia and hypercapnia Qualified Code(s): J96.21 - Acute and chronic respiratory failure with hypoxia; J96.22 - Acute and chronic respiratory failure with hypercapnia Code(s): J96.20 - Acute and chronic respiratory failure, unspecified whether with hypoxia or hypercapnia Status: Acute Assessment and Plan: Supportive care keep oxygen saturation greater 90%, on 4 L Continue slow diuresis + thoracentesis (3) Epistaxis: Code(s): R04.0 - Epistaxis Status: Acute Assessment and Plan: Resolved (4) Atrial fibrillation: Onset Date: ~03/2019 Qualifiers: Atrial fibrillation type: permanent Qualified Code(s): I48.21 - Permanent atrial fibrillation Code(s): I48.91 - Unspecified atrial fibrillation Status: Acute Assessment and Plan: -Eliquis for her anticoagulation -Changed to metoprolol by cardiology (5) Mixed hyperlipidemia: Code(s): E78.2 - Mixed hyperlipidemia Status: Chronic Assessment and Plan: Continue statin (6) Essential (primary) hypertension: Code(s): I10 - Essential (primary) hypertension Status: Chronic Assessment and Plan: Stable (7) Hypokalemia: Code(s): E87.6 - Hypokalemia Status: Acute Assessment and Plan: Secondary diuresis, continue to replace potassium as needed, potassium is 2.8, K rider and potassium supplement, reorder BMp in afternoon Subjective Date/time seen: 07/29/20 17:37 Objective Data Vital Signs Vital Signs: Vital Signs - 24 hr 07/28/20 20:00 07/28/20 21:04 07/29/20 06:00 Temperature 97.7 F 97.9 F Pulse Rate 98 98 98 Respiratory Rate 18 18 20 Blood Press
[2020-07-29 18:52] LABS: SARS-CoV-2 RNA PCR Negative
[2020-07-30] VITALS (8 sets, daily range): BP systolic 104–106; BP diastolic 48–58; PULSE 75–87; RESP 18–20; TEMP 36.1–36.8; O2SAT 95–97
[2020-07-30 06:00] LABS: Blood Urea Nitrogen 35 mg/dL (7-17); Calcium 8.7 mg/dL (8.4-10.2); Carbon Dioxide > 40 mmol/L (22-30); Chloride 81 mmol/L (98-107); Estimated CRCL calculation 39 ml/min; Estimated Glomerular Filt Rate 48; Glucose 108 mg/dL (65-105); Potassium 2.8 mmol/L (3.4-5.0); Sodium 136 mmol/L (137-145)
[2020-07-30 06:50] LABS: Glucose Pleural Fluid 112 mg/dL; LDH Pleural Fluid 126 U/L; Total Protein Pleural Fluid 3.4 g/dL
[2020-07-30] MEDS: METOPROLOL SUCCINATE EXT REL 25 MG TABCR PO (08:34)
[2020-07-30] MEDS: PANTOPRAZOLE SOD SESQUIHYDRATE 20 MG TAB PO (08:34)
[2020-07-30] MEDS: polyethylene glycoL 3350 17 GM POWD.PACK PO (08:34)
[2020-07-30] MEDS: BUMETANIDE 1 MG TABLET 2 MG PO ×2 (08:34→18:54)
[2020-07-30] MEDS: FAMOTIDINE 20 MG TABLET 40 MG PO (08:35)
[2020-07-30] MEDS: APIXABAN 2.5 MG TABLET PO ×2 (08:35→18:54)
[2020-07-30] MEDS: ATORVASTATIN 40 MG TABLET PO (08:35)
[2020-07-30] MEDS: POTASSIUM CHLORIDE 20 MEQ TABLET.ER 40 MEQ PO ×2 (08:35→18:53)
[2020-07-30] MEDS: FOLIC ACID 1 MG TABLET PO (08:35)
[2020-07-30] MEDS: METOPROLOL SUCCINATE EXT REL 100 MG TABCR PO (08:35)
[2020-07-30] MEDS: TOLNAFTATE 1% POWDER 45 GM BTL 1 APPLIC TOPICAL ×2 (08:36→21:03)
[2020-07-30 08:47] LABS: Magnesium 1.7 mg/dL (1.6-2.3)
--- NOTE | 2020-07-30 09:19 | PCOTNOTE ---
Attempted to see patient, however patient off floor for testing at this time.
--- NOTE | 2020-07-30 10:41 | PM.PNPUL ---
Progress Note: A&P Assessment and Plan (1) Acute and chronic respiratory failure: Qualifiers: Respiratory failure complication: hypoxia and hypercapnia Qualified Code(s): J96.21 - Acute and chronic respiratory failure with hypoxia; J96.22 - Acute and chronic respiratory failure with hypercapnia Code(s): J96.20 - Acute and chronic respiratory failure, unspecified whether with hypoxia or hypercapnia Status: Acute Assessment and Plan: She has acute and chronic respiratory failure, improved but not optimized on BiPAP. Expecting a NIV - non-invasive ventilator today which she can use with all sleep and in the day as needed for shortness of breath. Will plan for an ABG tomorrow am. She was admitted with acute on chronic respiratory failure. She has been on oxygen 4 L of minute. During this hospitalization her blood gases have shown elevated pCO2 at 74. She was on APAP at home, BiPAP while in the hospital at 15/ 5 then 18/7 with persistent hypercapnia. She also required supplemental oxygen. This patient has failed BiPAP therapy. She is a candidate for non invasive ventilation with all sleep and as needed during the day for shortness of breath. She has tried and failed BiPAP and has failed APAP at home. I have contacted her home health company [facility] who is assisting in arranging an NIV for the patient. She is not able to tolerate APAP at home. She can use 2 L a minute during the day and with her NIV. (2) COPD (chronic obstructive pulmonary disease): Qualifiers: COPD type: unspecified COPD Qualified Code(s): J44.9 - Chronic obstructive pulmonary disease, unspecified Code(s): J44.9 - Chronic obstructive pulmonary disease, unspecified Status: Acute Assessment and Plan: She has COPD with acute on chronic hypercapnic hypoxemic respiratory failure, normally on 4 L at home, has been on higher amount here. Today she is on 2 L a minute. (3) Obstructive sleep apnea (adult) (pediatric): Onset Date: ~2016 Code(s): G47.33 - Obstructive sleep apnea (adult) (pediatric) Status: Acute Assessment and Plan: Most recent sleep study was in 2017 with an optimal pressure of 12 cm. She has been on auto PAP 4-10 cm most recently with elevated apnea-hypopnea index of 27. Goal is AHI 5 or below. (4) Acute on chronic diastolic CHF (congestive heart failure): Code(s): I50.33 - Acute on chronic diastolic (congestive) heart failure Status: Acute Assessment and Plan: Improving. She is normally on 4 L/min at home. She is less dyspneic after thoracentesis. Today she is on 2 L a minute with adequate saturation. (5) Pulmonary hypertension assoc with unclear multi-factorial mechanisms: Code(s): I27.29 - Other secondary pulmonary hypertension Status: Acute Assessment and Plan: Likely multifactorial and due to left sided heart disease, chronic hypoxemia and TASH. I don't see any significant ILD although it's difficult see with the background of pleural effusions and pulmonary edema. She did have restrictive ventilatory defect on PFT last year but this could also be explained by decompensated heart failure. (6) Pleural effusion: Code(s): J90 - Pleural effusion, not elsewhere classified Status: Acute Assessment and Plan: Right pleural effusion improved after large thoracentesis almost a liter removed. This showed red blood cells. The patient has had some hemorrhagic pleural effusions in the past. Her from mesothelial and she washed his clothes. This has remained Is remained a c
[2020-07-30] MEDS: ACETAMINOPHEN 325 MG TABLET 650 MG PO (11:42)
[2020-07-30 13:15] LABS: Potassium 4.7 mmol/L (3.4-5.0)
[2020-07-30 13:22] LABS: Albumin Pleural Fluid 2.2 g/dL
--- NOTE | 2020-07-30 17:01 | PC.NURSE ---
Per Dr. Figueroa hold the discharge at this time.
--- NOTE | 2020-07-30 17:44 | PM.CNNEP ---
Assessment and Plan Assessment and plan (1) Hypokalemia: Code(s): E87.6 - Hypokalemia Status: Acute Assessment and Plan: presumably due to IV diuresis (bumex + metolazone) however, suprising that her K+ still runs low with current chronic supplementation I suspose she could have type of potassium wasting syndrome but it may be difficult to prove in an effort to try to optimize this situation, will try adding spironolactone to both maintain stability in K+ level as well as promote diuresis would continue supplemental K+ and trend magnesium levels (2) Respiratory failure: Qualifiers: Chronicity: acute on chronic Respiratory failure complication: unspecified whether with hypoxia or hypercapnia Qualified Code(s): J96.20 - Acute and chronic respiratory failure, unspecified whether with hypoxia or hypercapnia Code(s): J96.90 - Respiratory failure, unspecified, unspecified whether with hypoxia or hypercapnia Status: Acute Assessment and Plan: multifactorial from her history Pulmonary following continue supportive care (3) Acute exacerbation of congestive heart failure: Qualifiers: Heart failure type: unspecified Qualified Code(s): I50.9 - Heart failure, unspecified Code(s): I50.9 - Heart failure, unspecified Status: Chronic Assessment and Plan: clinical improvement since admission on combination of bumex and metolazone Cardiology following (4) Essential (primary) hypertension: Code(s): I10 - Essential (primary) hypertension Status: Chronic Assessment and Plan: reasonable control at this time follow trend of hemodynamics Will continue to follow History of Present Illness Reason for Consult Consult date: 07/30/20 Reason for consult: hypokalemia Chief Complaint Chief complaint: Acute hypercapnic/respiratory failure/acute CHF ex Review of Systems Review of Systems: Narrative: As per HPI. [facility] Past Medical History Medical History (Updated 07/31/20 @ 10:16 by Lacy Teran MD) Abnormal colonoscopy And control hemorrhoids diverticulosis Adjustment disorder with anxious mood Age-related osteoporosis without current pathological fracture Anemia Atrial fibrillation (~03/2019) Breast cancer Left lumpectomy with radiation therapy. Cataracts, bilateral Chronic congestive heart failure with left ventricular diastolic dysfunction Congestive heart failure, unspecified COPD (chronic obstructive pulmonary disease) CPAP (continuous positive airway pressure) dependence Diverticulitis Endometriosis Essential (primary) hypertension Fracture of left femur following insertion of orthopedic implant Gastro-esophageal reflux disease with esophagitis History of breast cancer Kidney stone Mitral valve prolapse Mixed hyperlipidemia Nonrheumatic mitral (valve) insufficiency Obstructive sleep apnea (adult) (pediatric) (~2017) Osteoporosis Pulmonary hypertension Respiratory failure Sleep apnea Supraventricular tachycardia Unspecified diastolic (congestive) heart failure UTI (urinary tract infection) Surgical History Surgical History (Updated 07/16/20 @ 20:07 by Tamiko Fuller NP) H/O cardiac catheterization To does 15 demonstrated normal coronary arteries. History of lumpectomy of left breast S/P lumpectomy, left breast Family History Family History Mother Hypertension Diabetes mellitus Family history of osteoporosis Acute myocardial infarction Sibling Family history of malignant neoplasm of esophagus Colon polyp Father Family history of glaucoma Hypertension Family history of rheumatoid arthritis Other Family history of cardiovascular disease Family history of heart disease in male family member before age 55 Family history of hypercholesterolemia Family history of malignant neoplasm Family history of malignant neoplasm of breast
[2020-07-30] MEDS: SPIRONOLACTONE 12.5 MG TABLET PO (18:53)
[2020-07-31 04:58] VITALS: BP 110/65; PULSE 63; RESP 20; TEMP 36.3; O2SAT 99
[2020-07-31 05:49] LABS: Magnesium 1.5 mg/dL (1.6-2.3)
[2020-07-31 05:50] LABS: Blood Urea Nitrogen 34 mg/dL (7-17); Carbon Dioxide > 40 mmol/L (22-30); Chloride 83 mmol/L (98-107); Estimated CRCL calculation 33 ml/min; Estimated Glomerular Filt Rate 39; Glucose 108 mg/dL (65-105); Sodium 133 mmol/L (137-145)
[2020-07-31 06:03] LABS: Potassium 3.2 mmol/L (3.4-5.0)
--- NOTE | 2020-07-31 09:04 | PM.PNCARD ---
Progress Note: A&P Assessment and Plan (1) Acute on chronic diastolic CHF (congestive heart failure): Code(s): I50.33 - Acute on chronic diastolic (congestive) heart failure Status: Acute Assessment and Plan: Improved clinically. Continue Bumex and metolazone as scheduled along with aggressive potassium repletion. Creatinine stable. Post right thoracentesis 07/25/2020 of 950 cc red fluid Heart rate well controlled. (2) Atrial fibrillation: Onset Date: ~03/2019 Qualifiers: Atrial fibrillation type: permanent Qualified Code(s): I48.21 - Permanent atrial fibrillation Code(s): I48.91 - Unspecified atrial fibrillation Status: Acute Assessment and Plan: Continue Toprol XL 125 mg daily. Heart rate is well controlled. BP stable. Occasional lightheadedness when first gets up. Anticoagulated with Eliquis at 2.5 mg BID due to age and renal function (3) Hypokalemia: Code(s): E87.6 - Hypokalemia Status: Resolved Assessment and Plan: Continue potassium supplementation. Dr Teran consulted. Spironolactone started. Recommend supplementation of magnesium 2 gm today for magnesium of 1.5. Recheck this afternoon before discharge. Check BMP on Tuesday, 2019 (4) Respiratory failure: Qualifiers: Chronicity: acute on chronic Respiratory failure complication: unspecified whether with hypoxia or hypercapnia Qualified Code(s): J96.20 - Acute and chronic respiratory failure, unspecified whether with hypoxia or hypercapnia Code(s): J96.90 - Respiratory failure, unspecified, unspecified whether with hypoxia or hypercapnia Status: Acute Assessment and Plan: Multifactorial in combination with CHF and probable underlying chronic lung disease followed by Dr. Martel. Pulmonology involvement appreciated. On home O2 and CPAP at home. Right pleural effusion status post thoracentesis as above Trilogy has finally been delivered. Plan for discharge today (5) Pulmonary hypertension: Code(s): I27.20 - Pulmonary hypertension, unspecified Status: Acute Assessment and Plan: Has severe pulmonary hypertension, related to her chronic diastolic heart failure and chronic lung disease. Additional Plan OK to discharge from cardiac standpoint See discharge instructions for follow-up. Plan discussed with Dr Wade 0910 07/31/2020 Subjective Date/time seen: 07/31/20 09:04 Interval history: Follow-up for: chronic diastolic heart failure, Atrial fibrillation, respiratory failure. Date of service: 07/31/2020 Subjective: No chest pain. Breathing at baseline. Slept well to about 3 am. Up to chair. Sleeps in recliner at home. Review of Systems Constitutional: Constitutional: Reports weakness Eyes: Eyes: Denies blurry vision ENT: Denies dizziness, Reports hearing loss, Denies lip swelling, Reports epistaxis (occasional slight pink on tissue), Denies nasal congestion and Denies throat swelling Cardiovascular: Cardiovascular: Denies chest pain, Reports pedal edema, Reports leg edema, Reports lightheadedness (If gets up too quickly), Denies palpitations, Denies dyspnea and Reports dyspnea on exertion (Improved) Respiratory: Respiratory: Denies chest congestion, Denies cough, Denies dyspnea and Denies wheezing Gastrointestinal: Gastrointestinal: Denies abdominal pain, Denies nausea and Denies vomiting Genitourinary: Genitourinary: Denies hematuria Musculoskeletal: Musculoskeletal: Denies back pain Integumentary/Breasts: Skin/Breast: Denies rash Neurologic: Denies confusion, Denies dizziness and Reports weakness Psychiatric: Psychiatric: Denies anxiety, Denies depression and Reports memory loss Endocrine: Endocrine: Repor
[2020-07-31 09:45] VITALS: PULSE 92
[2020-07-31] MEDS: FAMOTIDINE 20 MG TABLET 40 MG PO (09:45)
[2020-07-31] MEDS: FOLIC ACID 1 MG TABLET PO (09:45)
[2020-07-31] MEDS: METOPROLOL SUCCINATE EXT REL 25 MG TABCR PO (09:45)
[2020-07-31] MEDS: POTASSIUM CHLORIDE 20 MEQ TABLET.ER 40 MEQ PO ×2 (09:45→17:55)
[2020-07-31] MEDS: APIXABAN 2.5 MG TABLET PO ×2 (09:45→17:55)
[2020-07-31] MEDS: SPIRONOLACTONE 12.5 MG TABLET PO ×2 (09:45→17:55)
[2020-07-31] MEDS: BUMETANIDE 1 MG TABLET 2 MG PO ×2 (09:45→17:55)
[2020-07-31 09:46] VITALS: PULSE 92
[2020-07-31] MEDS: METOPROLOL SUCCINATE EXT REL 100 MG TABCR PO (09:46)
[2020-07-31] MEDS: polyethylene glycoL 3350 17 GM POWD.PACK PO (09:47)
[2020-07-31] MEDS: MAGNESIUM SULF 2 GM/WATER 50ML 2 GM/50 ML BAG IVPB (09:47)
[2020-07-31] MEDS: ATORVASTATIN 40 MG TABLET PO (09:47)
[2020-07-31] MEDS: MAGNESIUM OXIDE 400 MG TABLET PO (09:47)
[2020-07-31] MEDS: TOLNAFTATE 1% POWDER 45 GM BTL 1 APPLIC TOPICAL (09:48)
[2020-07-31 10:00] VITALS: O2SAT 99
[2020-07-31] MEDS: PANTOPRAZOLE SOD SESQUIHYDRATE 20 MG TAB PO (11:15)
[2020-07-31 14:00] VITALS: BP 104/60; PULSE 87; RESP 16; TEMP 36.4; O2SAT 99
--- NOTE | 2020-07-31 14:21 | PCPTNOTE ---
Patient refused treatment this session due to fatigue. Patient states that she is too tired and might be going home today and does not want to do therapy anymore today. two attempts made this date to see patient 9:10 and 14:20. Ruby Chowdhury, PSYCHOLOGY PHYSICIAN
[2020-07-31 15:31] LABS: Blood Urea Nitrogen 37 mg/dL (7-17); Calcium 9.2 mg/dL (8.4-10.2); Carbon Dioxide > 40 mmol/L (22-30); Chloride 80 mmol/L (98-107); Estimated CRCL calculation 39 ml/min; Estimated Glomerular Filt Rate 48; Glucose 104 mg/dL (65-105); Magnesium 2.2 mg/dL (1.6-2.3); Potassium 3.7 mmol/L (3.4-5.0); Sodium 133 mmol/L (137-145)
--- NOTE | 2020-07-31 15:42 | PM.PNNEP ---
Progress Note: A&P Assessment and Plan (1) Hypokalemia: Code(s): E87.6 - Hypokalemia Status: Acute Assessment and Plan: presumably due to IV diuresis (bumex + metolazone) however, surprising that her K+ still runs low with current chronic supplementation I supose she could have type of potassium wasting syndrome but it may be difficult to prove in an effort to try to optimize this situation, added spironolactone to both maintain stability in K+ level as well as promote diuresis would continue supplemental K+ and trend magnesium levels (2) Respiratory failure: Qualifiers: Chronicity: acute on chronic Respiratory failure complication: unspecified whether with hypoxia or hypercapnia Qualified Code(s): J96.20 - Acute and chronic respiratory failure, unspecified whether with hypoxia or hypercapnia Code(s): J96.90 - Respiratory failure, unspecified, unspecified whether with hypoxia or hypercapnia Status: Acute Assessment and Plan: multifactorial from her history Pulmonary following continue supportive care (3) Acute exacerbation of congestive heart failure: Qualifiers: Heart failure type: unspecified Qualified Code(s): I50.9 - Heart failure, unspecified Code(s): I50.9 - Heart failure, unspecified Status: Chronic Assessment and Plan: clinical improvement since admission on combination of bumex and metolazone Cardiology following (4) Essential (primary) hypertension: Code(s): I10 - Essential (primary) hypertension Status: Chronic Assessment and Plan: reasonable control at this time follow trend of hemodynamics Will continue to follow Subjective Date/time seen: 07/31/20 15:42 Appears to be doing reasonably well at the time of my visit; states that she going home and seems to be happy about this; Exam Narrative: Exam Narrative: General: WD/WN female in NAD Heart: IRRR, normal S1 and S2; no rub Lungs: coarse and diminished at bases Abdomen: soft, nontender, nondistended, positive bowel sounds Extremities: no cyanosis or clubbing; trace edema Skin: warm and dry Objective Data Vital Signs Vital Signs: Vital Signs Temp Pulse Resp BP Pulse Ox 07/31/20 14:00 36.4 C L 87 16 104/60 99 07/31/20 10:00 99 07/31/20 09:46 92 07/31/20 09:45 92 07/31/20 04:58 36.3 C L 63 20 110/65 99 07/30/20 23:27 20 07/30/20 21:00 36.1 C L 75 20 106/48 L 97 07/30/20 19:42 97 Intake/Output Intake/Output: Intake & Output 07/28/20 07/29/20 07/30/20 07/31/20 23:59 23:59 23:59 23:59 Intake Total 1210 1470 1590 1480 Output Total 950 1900 1500 750 Balance 260 -430 90 730 Meds/Results Medications: Active Medications Generic Name Dose Route Start Last Admin Trade Name Freq PRN Reason Stop Dose Admin Acetaminophen 650 mg 07/20/20 15:21 07/30/20 11:42 Acetaminophen 325 Mg Tablet PO 650 mg Q6H PRN Administration Mild Pain (1-3) or Fever Apixaban 2.5 mg 07/27/20 17:00 07/31/20 09:45 Apixaban 2.5 Mg Tablet PO 2.5 mg BID JENNIFER Administration Atorvastatin Calcium 40 mg 07/17/20 09:00 07/31/20 09:47 Atorvastatin 40 Mg Tablet PO 40 mg DAILY JENNIFER Administration Bumetanide 2 mg 07/23/20 09:00 07/31/20 09:45 Bumetanide 1 Mg Tablet PO 2 mg BID JENNIFER Administration Ergocalciferol 50,000 unit 07/28/20 09:00 07/28/20 08:07 Ergocalciferol 50,000 Unit Capsule PO 50,000 unit Mo@0900 JENNIFER Administration Famotidine 40 mg 07/17/20 09:00 07/31/20 09:45 Famotidine 20 Mg Tablet PO 40 mg DAILY JENNIFER Administration Folic Acid 1 mg 07/17/20 09:00 07/31/20 09:45 Folic Acid 1 Mg Tablet PO 1 mg DAILY JENNIFER Administration Magnesium Oxide 400 mg 07/31/20 09:05 07/31/20 09:47 Magnesium Oxide 400 Mg Tablet PO 400 mg QAM JENNIFER Administration Metolazone 2.5 mg 07/18/20 09:00 07/28/20 08:08 Metolazone 2
--- NOTE | 2020-07-31 16:02 | PM.IMPN ---
Progress Note: A&P Assessment and Plan (1) Acute exacerbation of congestive heart failure: Qualifiers: Heart failure type: unspecified Qualified Code(s): I50.9 - Heart failure, unspecified Code(s): I50.9 - Heart failure, unspecified Status: Chronic Assessment and Plan: -Patient has had multiple readmissions for the same issue over the past couple years exacerbation of her diastolic heart failure -chronically on 3-4 L home oxygen therapy, currently on 5 L O2, hopeful Dc when pt is back to her baseline -patient is DNR and is agreeable to BiPAP as needed -Pt is on oral bumex and oral metolazone -Patient to work with physical therapy -Cardiology rounding pt is on metoprolol for AF -EF is EF 65-70%, indeterminate diastolic dysfunction Pt had ct chest pt is breathing little better today after thoracentesis yesterday 07/28/20 Patient 79-year-old female with history of diastolic dysfunction with normal systolic function with ejection fraction of 65%, initially present presented with a nosebleed which has now resolved, patient is being diuresed suspected volume overload with Bumex and metolazone seen by train director, patient has developed hyperkalemia most likely due to diuresis and being supplemented her potassium is 4.1 today, also there was a concerned the patient may have pulmonary hypertension and interstitial lung disease and patient is seen by vice president of consulting services recommended to continue diuresing as patient can tolerate, today patient is sitting in the chair states feeling much better denies any shortness of breath, did participate with physical therapy and was able to ambulate without significant difficulty, she also history of atrial fibrillation rate is controlled anticoagulated with Eliquis, will continue. Upon arrival patient was tested for COVID-19 and patient is negative. Patient clinicall symptms were improving and train director and vice president of consulting services were ok to discharge patient back to assisted living however her trilogy was not delivered at her home and vice president of consulting services recommended to wait until trilogy is delivered, will continue to monitor and further recommendation to follow (2) Acute and chronic respiratory failure: Qualifiers: Respiratory failure complication: hypoxia and hypercapnia Qualified Code(s): J96.21 - Acute and chronic respiratory failure with hypoxia; J96.22 - Acute and chronic respiratory failure with hypercapnia Code(s): J96.20 - Acute and chronic respiratory failure, unspecified whether with hypoxia or hypercapnia Status: Acute Assessment and Plan: Supportive care keep oxygen saturation greater 90%, on 4 L Continue slow diuresis + thoracentesis (3) Epistaxis: Code(s): R04.0 - Epistaxis Status: Acute Assessment and Plan: Resolved (4) Atrial fibrillation: Onset Date: ~03/2019 Qualifiers: Atrial fibrillation type: permanent Qualified Code(s): I48.21 - Permanent atrial fibrillation Code(s): I48.91 - Unspecified atrial fibrillation Status: Acute Assessment and Plan: -Eliquis for her anticoagulation -Changed to metoprolol by cardiology (5) Mixed hyperlipidemia: Code(s): E78.2 - Mixed hyperlipidemia Status: Chronic Assessment and Plan: Continue statin (6) Essential (primary) hypertension: Code(s): I10 - Essential (primary) hypertension Status: Chronic Assessment and Plan: Stable (7) Hypokalemia: Code(s): E87.6 - Hypokalemia Status: Acute Assessment and Plan: Secondary diuresis, continue to replace potassium as needed, potassium is 2.8, K rider and potassium supplement, reorder BMp in afternoon Subjective Date/time seen: 07/30/20 16:02 Objective Data Vital Signs Vital Signs: Vital Signs - 24 hr 07/30/20 19:42 07/30/20 21:00 07/30/20 23:27 Temperature 97 F L Pulse Rate 75 Respiratory Rate 20 20 Blood Pressure 106/48
--- NOTE | 2020-08-30 15:19 | PM.IMPN ---
Progress Note: A&P Assessment and Plan (1) Acute exacerbation of congestive heart failure: Qualifiers: Heart failure type: unspecified Qualified Code(s): I50.9 - Heart failure, unspecified Code(s): I50.9 - Heart failure, unspecified Status: Chronic Assessment and Plan: -Patient has had multiple readmissions for the same issue over the past couple years exacerbation of her diastolic heart failure -chronically on 3-4 L home oxygen therapy, currently on 5 L O2, hopeful Dc when pt is back to her baseline -patient is DNR and is agreeable to BiPAP as needed -Pt is on oral bumex and oral metolazone -Patient to work with physical therapy -Cardiology rounding pt is on metoprolol for AF -EF is EF 65-70%, indeterminate diastolic dysfunction Pt had ct chest pt is breathing little better today after thoracentesis yesterday 07/30/2020 Patient 79-year-old female with history of diastolic dysfunction with normal systolic function with ejection fraction of 65%, initially present presented with a nosebleed which has now resolved, patient is being diuresed suspected volume overload with Bumex and metolazone seen by top trimmer, patient has developed hyperkalemia most likely due to diuresis and being supplemented her potassium is 4.1 today, also there was a concerned the patient may have pulmonary hypertension and interstitial lung disease and patient is seen by oxide furnace tender recommended to continue diuresing as patient can tolerate, today patient is sitting in the chair states feeling much better denies any shortness of breath, did participate with physical therapy and was able to ambulate without significant difficulty, she also history of atrial fibrillation rate is controlled anticoagulated with Eliquis, will continue. Upon arrival patient was tested for COVID-19 and patient is negative. Patient clinicall symptms were improving and top trimmer and oxide furnace tender were ok to discharge patient back to assisted living however her trilogy was not delivered at her home and oxide furnace tender recommended to wait until trilogy is delivered, will continue to monitor and further recommendation to follow Plan was discharge today however her potassium was low and her tirlogy was delivered at the hospital and oxide furnace tender recommended to monitor patient overnight with trilogy before charging patient back to assisted living. (2) Acute and chronic respiratory failure: Qualifiers: Respiratory failure complication: hypoxia and hypercapnia Qualified Code(s): J96.21 - Acute and chronic respiratory failure with hypoxia; J96.22 - Acute and chronic respiratory failure with hypercapnia Code(s): J96.20 - Acute and chronic respiratory failure, unspecified whether with hypoxia or hypercapnia Status: Acute Assessment and Plan: Supportive care keep oxygen saturation greater 90%, on 4 L Continue slow diuresis + thoracentesis (3) Epistaxis: Code(s): R04.0 - Epistaxis Status: Acute Assessment and Plan: Resolved (4) Atrial fibrillation: Onset Date: ~03/2019 Qualifiers: Atrial fibrillation type: permanent Qualified Code(s): I48.21 - Permanent atrial fibrillation Code(s): I48.91 - Unspecified atrial fibrillation Status: Acute Assessment and Plan: -Eliquis for her anticoagulation -Changed to metoprolol by cardiology (5) Mixed hyperlipidemia: Code(s): E78.2 - Mixed hyperlipidemia Status: Chronic Assessment and Plan: Continue statin (6) Essential (primary) hypertension: Code(s): I10 - Essential (primary) hypertension Status: Chronic Assessment and Plan: Stable (7) Hypokalemia: Code(s): E87.6 - Hypokalemia Status: Acute Assessment and Plan: Secondary diuresis, continue to replace potassium as needed, potassium is 2.8, K rider and potassium supplement, reorder BMp in afternoon Subjective Date/time seen
== END 2020-07-31 18:54 | disposition home health service (06) | DRG 291 ==
LOC: ANHED 14:27 → ANHIMU 22:53 → ANH2MED 07-21 13:07 → ANHIMU 08-01 11:05
PROVIDERS: Family Medicine; Internal Medicine; Internal Medicine Cardiovascular Disease; Internal Medicine Critical Care Medicine; Internal Medicine Nephrology; Nurse Practitioner; Student in an Organized Health Care Education/Training Program; Admitting Provider Internal Medicine; Emergency Provider Emergency Medicine; PCP Family Medicine; Visit Provider Family Medicine
DX: I11.0 Hypertensive heart disease with heart failure (principal); J96.22 Acute and chronic respiratory failure with hypercapnia; J96.21 Acute and chronic respiratory failure with hypoxia; E87.3 Alkalosis; I48.21 Permanent atrial fibrillation; J90 Pleural effusion, not elsewhere classified; J84.9 Interstitial pulmonary disease, unspecified; I50.33 Acute on chronic diastolic (congestive) heart failure; R04.0 Epistaxis; Z20.828 Contact with and (suspected) exposure to other viral communicable diseases; Z66 Do not resuscitate; J44.9 Chronic obstructive pulmonary disease, unspecified; Z79.01 Long term (current) use of anticoagulants; F43.22 Adjustment disorder with anxiety; M81.0 Age-related osteoporosis without current pathological fracture; Z85.3 Personal history of malignant neoplasm of breast; K21.9 Gastro-esophageal reflux disease without esophagitis; I34.1 Nonrheumatic mitral (valve) prolapse; E78.2 Mixed hyperlipidemia; G47.33 Obstructive sleep apnea (adult) (pediatric); E87.6 Hypokalemia; Z99.81 Dependence on supplemental oxygen; K59.00 Constipation, unspecified; I27.22 Pulmonary hypertension due to left heart disease; E87.5 Hyperkalemia; T50.2X5A Adverse effect of carbonic-anhydrase inhibitors, benzothiadiazides and other diuretics, initial encounter; Y92.230 Patient room in hospital as the place of occurrence of the external cause
CPT/HCPCS: 32555; 36415; 36600; 71045; 71046; 71250; 76775; 80048; 80053; 80162; 82042; 82150; 82375; 82728; 82805; 82945; 83050; 83615; 83735; 83880; 83986; 84132; 84157; 84311; 84439; 84443; 84478; 84480; 84484; 85025; 85027; 85610; 85730; 87015; 87040; 87070; 87075; 87102; 87116; 87205; 87206; 87635; 88104; 88108; 88184; 88185; 88305; 89051; 93005; 93306; 94003; 94660; 96360; 97110; 97116; 97161; 97165; 97530; 97535; 99285; A9270; C9803; J1940; J1956; J3475; J3480; J7040; U0003